=== PATIENT | female | born 1950 | race Hispanic/Latino ===

== ENCOUNTER 2018-08-25 01:33 | Emergency (ER) | payer MEDICARE ==
[~2018-08-25] VITALS: Ht 152.4 cm; Wt 92.5 kg
--- OUTSIDE RECORDS SUMMARY | 2018-08-25 01:35 | XMS REPORT ---
[facility] Address Unknown Phone Unavailable Care Team Providers Care Tip Mender Name Role Phone Unavailable Unavailable Payers Payer Name Policy Type Policy Number Effective Date Expiration Date Problems This patient has no known problems. Allergies, Adverse Reactions, Alerts Allergy Name Allergy Type Status Severity Reaction(s) Onset Date Inactive Date Treating Clinician Comments No Known Allergies DA Active U 2018-04-16 00:00:00 No Known Allergies DA Active U 2012-11-26 00:00:00 Medications This patient has no known medications.
[2018-08-25] MEDS ORDERED: LORATADINE 10 MG TAB PO ONE (02:15)
--- NOTE | 2018-08-25 02:48 | Diagnostic Imaging Report ---
EXAMINATION: Head and maxillofacial CT without contrast. HISTORY: Dizziness. Headache, facial pain for last 2 days, facial pressure. COMPARISON: None. TECHNIQUE: Multidetector axial images were obtained without contrast from the foramen magnum to the vertex and over the face. The images were reconstructed using brain and bone algorithms. Thin section brain images were reformatted into coronal and sagittal planes. Intravenous contrast: None. Dose modulation, iterative reconstruction, and/or weight based adjustment of the mA/kV was utilized to reduce the radiation dose to as low as reasonably achievable. Head CT findings: Skull: No lytic or blastic lesions. No fractures. Parenchyma: Normal. No mass, hemorrhage or CT evidence of acute vascular insult. Brain volume: Normal for age. Ventricles: No hydrocephalus or displacement. Arteries: No density suggestive of thrombus. Dural sinuses: No abnormal density. Extra-axial spaces: No abnormal density. Foramen magnum: No mass, Chiari malformation, or basilar invagination. Sella: Partially empty, mostly CSF filled Paranasal/mastoid sinuses: Imaged portions unremarkable. Face CT findings: Bones: No acute facial fractures, chronic nondisplaced fracture of the left nasal bone and frontal process of the maxilla. Degenerative changes of the bilateral TMJs. Facial soft tissues: Unremarkable. Orbits contents: Unremarkable. Paranasal sinuses and drainage pathways: Clear and patent. Nasal septum and nasal cavities: Midline. Anatomic variations: No significant anatomic variations. Teeth: No acute abnormality of the visualized teeth. IMPRESSION: 1. Normal head CT. 2. The paranasal sinuses and drainage pathways are clear. 3. Degenerative changes of the bilateral TMJs. Signed by: Dr. Shanelle Lawosn M.D. on 08/25/2018 2:44 AM
[2018-08-25 05:51] VITALS: BP 151/68
[2018-08-25] MEDS ORDERED: ACETAMINOPHEN 325 MG TAB ONE (06:04)
== END 2018-08-25 06:03 | disposition home or self-care (01) ==
LOC: ER 01:33
DX: R05 Cough (principal); J01.10 Acute frontal sinusitis, unspecified
CPT/HCPCS: 70450; 70486; 99284

== ENCOUNTER 2018-12-20 14:31 | Emergency (ER) | payer MEDICARE ==
[~2018-12-20] VITALS: Ht 152.4 cm; Wt 92.5 kg
[2018-12-20] MEDS ORDERED: SODIUM CHLORIDE 0.9% 1000ML 1,000 ML IV STA (14:46)
[2018-12-20] MEDS ORDERED: KETOROLAC TROMETHAMINE 30 MG/ML VIAL IV STA (14:46)
[2018-12-20 14:57] LABS: BASOPHILS # (AUTO) 0.1 (0.0-0.1); BASOPHILS % 0.5 % (0.0-1.0); EOSINOPHILS # (AUTO) 0.3 (0.0-0.4); EOSINOPHILS % 2.4 % (0.0-6.0); HEMATOCRIT 31.3 % (34.2-44.1); HEMOGLOBIN 9.9 g/dL (12.0-16.0); LYMPHOCYTES # (AUTO) 2.8 (1.0-3.2); LYMPHOCYTES % 25.4 % (18.0-39.1); MEAN CORPUSCULAR HEMOGLOBIN 29.5 pg (28-32); MEAN CORPUSCULAR HGB CONC 31.6 g/dL (31-35); MEAN CORPUSCULAR VOLUME 93.2 fL (81-99); MONOCYTES # (AUTO) 0.6 (0.2-0.8); MONOCYTES % 5.1 % (4.4-11.3); NEUTROPHILS # (AUTO) 7.3 (2.1-6.9); NEUTROPHILS % 66.2 % (38.7-80.0); PLATELET COUNT 204 x10e3/uL (140-360); RED BLOOD COUNT 3.36 x10e6/uL (3.6-5.1); RED CELL DISTRIBUTION WIDTH 15.1 % (11.7-14.4)
[2018-12-20 14:59] LABS: BILIRUBIN,URINE NEGATIVE (NEGATIVE); CLARITY,URINE CLEAR (CLEAR); COLOR,URINE YELLOW (YELLOW); KETONES,URINE NEGATIVE (NEGATIVE); LEUKOCYTE ESTERASE ,URINE TRACE (NEGATIVE); NITRITE,URINE NEGATIVE (NEGATIVE); PROTEIN,URINE DIPSTICK TRACE (NEGATIVE); URINE UROBILINOGEN 0.2 mg/dL (0.2 - 1)
[2018-12-20] MEDS ORDERED: METOCLOPRAMIDE HCL 10 MG/2ML VIAL IV ONE (15:00)
[2018-12-20] MEDS ORDERED: DIPHENHYDRAMINE HCL INJ 50 MG/ML VIAL IV ONE (15:00)
[2018-12-20 15:12] LABS: BACTERIA,URINE MODERATE /HPF; EPITHELIAL CELLS,URINE FEW /LPF; WBC,URINE (MAN) 0-5 /HPF (0-5)
[2018-12-20 15:17] LABS: ANION GAP 14.8 mmol/L (8-16); BLOOD UREA NITROGEN 15 mg/dL (7-26); BUN/CREATININE RATIO 17 (6-25); CARBON DIOXIDE 24 mmol/L (22-29); CHLORIDE 104 mmol/L (98-107); CREATININE, SERUM 0.88 mg/dL (0.57-1.11); EST GLOMERULAR FILTRATION RATE > 60 ML/MIN (60-); GLUCOSE 129 mg/dL (74-118); POTASSIUM 3.8 mmol/L (3.5-5.1); SODIUM 139 mmol/L (136-145)
[2018-12-20 15:18] LABS: ALANINE AMINOTRANSFERASE 14 IU/L (0-55); ALBUMIN 3.4 g/dL (3.5-5.0); ALBUMIN/GLOBULIN RATIO 0.9 (0.8-2.0); ALKALINE PHOSPHATASE 143 IU/L (40-150); CALCIUM 9.4 mg/dL (8.4-10.2)
--- NOTE | 2018-12-20 15:54 | Diagnostic Imaging Report ---
History:Headaches Comparison studies:CT head 08/25/2018 Technique: Axial images were obtained from the skull base to the vertex. Coronal and sagittal reconstructions obtained from the axial data. Dose modulation, iterative reconstruction, and/or weight based adjustment of the mA/kV was utilized to reduce the radiation dose to as low as reasonably achievable. Findings: Scalp/skull: No abnormalities. No fractures, blastic or lytic lesions. Extra-axial spaces: No masses. No fluid collections. Brain sulci: Appropriate for age. Ventricles: Normal in size and configuration. No hydrocephalus. Parenchyma: No abnormal densities. No masses, hemorrhage, acute or chronic cortical vascular insults. Sellar/suprasellar region: No abnormalities Craniocervical junction: Patent foramen magnum. No Chiari one malformation. Mild atherosclerotic changes of the carotid siphons. IMPRESSION: No acute abnormalities . Stable examination. Signed by: DR Shane Wilson M.D. on 12/20/2018 3:51 PM
== END 2018-12-20 16:40 | disposition home or self-care (01) ==
LOC: ER 14:31
DX: G44.211 Episodic tension-type headache, intractable (principal)
CPT/HCPCS: 36415; 70450; 80053; 81001; 85025; 99284; J1200; J1885; J2765; J7030

== ENCOUNTER 2019-11-30 15:14 | Inpatient (IN) | payer MEDICARE, OTHER ==
[~2019-11-30] VITALS: Ht 152.4 cm; Wt 79.4 kg
[2019-11-30] MEDS ORDERED: PANTOPRAZOLE 40 MG 10ML VIAL IV STA (15:32)
[2019-11-30 16:06] LABS: INR 0.89; PROTHROMBIN TIME 12.5 seconds (11.9-14.5)
[2019-11-30 16:07] LABS: BASOPHILS % 0.4 % (0.0-1.0); EOSINOPHILS # (AUTO) 0.1 (0.0-0.4); EOSINOPHILS % 1.2 % (0.0-6.0); HEMATOCRIT 25.6 % (34.2-44.1); HEMOGLOBIN 7.9 g/dL (12.0-16.0); LYMPHOCYTES # (AUTO) 2.5 (1.0-3.2); LYMPHOCYTES % 50.2 % (18.0-39.1); MEAN CORPUSCULAR HEMOGLOBIN 29.7 pg (28-32); MEAN CORPUSCULAR HGB CONC 30.9 g/dL (31-35); MEAN CORPUSCULAR VOLUME 96.2 fL (81-99); MONOCYTES # (AUTO) 0.2 (0.2-0.8); MONOCYTES % 4.3 % (4.4-11.3); NEUTROPHILS # (AUTO) 2.1 (2.1-6.9); NEUTROPHILS % 43.3 % (38.7-80.0); PARTIAL THROMBOPLASTIN TIME 30.6 seconds (23.8-35.5); PLATELET COUNT 180 x10e3/uL (140-360); RED BLOOD COUNT 2.66 x10e6/uL (3.6-5.1); RED CELL DISTRIBUTION WIDTH 15.4 % (11.7-14.4)
--- NOTE | 2019-11-30 16:07 | Diagnostic Imaging Report ---
EXAM: CHEST SINGLE (PORTABLE) DATE: 11/30/2019 3:45 PM INDICATION: Shortness of breath, anemia COMPARISON: None FINDINGS: The trachea is midline. The lungs are symmetrically expanded without evidence for large focal consolidation, pneumothorax, or significant pleural effusion. The cardiomediastinal silhouette and pulmonary vasculature are within normal limits. Tortuosity and vascular calcifications noted of the thoracic aorta. No acute osseous abnormality is identified. The surrounding soft tissues are unremarkable. IMPRESSION: No acute cardiopulmonary process identified. Signed by: Dr. Boo Ferrer MD on 11/30/2019 4:03 PM
[2019-11-30 16:13] LABS: ALBUMIN 3.3 g/dL (3.5-5.0); ALBUMIN/GLOBULIN RATIO 0.8 (0.8-2.0); ANION GAP 15.5 mmol/L (8-16); CALCIUM 8.9 mg/dL (8.4-10.2); CREATININE, SERUM 2.16 mg/dL (0.57-1.11); POTASSIUM 4.5 mmol/L (3.5-5.1)
[2019-11-30 16:20] LABS: CREATINE KINASE MB 0.6 ng/mL (0-5.0)
[2019-11-30] MEDS ORDERED: SODIUM CHLORIDE 0.9% 1000ML 1,000 ML IV SCH (17:00)
[2019-11-30] MEDS ORDERED: ONDANSETRON HCL INJ 2MG/ML 2ML 2 MG/ML VIAL IV PRN (17:00)
--- NOTE | 2019-11-30 17:02 | Emergency Department Note ---
History of Present Illnes History of Present Illness Chief Complaint: General Medicine Complaints History of Present Illness This is a 69 year old female Pt arrived to the ER with c/o low blood count. Pt states was sent by her PCP to have a blood transfusion. Pt reports SOB and fatigue. States had blood drawn Thursday d/t going to have a colonoscopy on Thursday. Unknown how low H&H. Historian: Patient Arrival Mode: Car Network Operations Manager Required: No Onset (how long ago): week(s) Radiation: Reports non-radiation Severity: moderate Onset quality: gradual Timing of current episode: intermittent Chronicity: new Context: Denies recent illness Relieving factors: none Exacerbating factors: movement Associated symptoms: Reports shortness of breath, Reports other (DIZZINESS) Past Medical/Family History Physician Review I have reviewed the patient's past medical and family history. Any updates have been documented here. Past Medical History Recent Fever: No Clinical Suspicion of Infectio: No New/Unexplained Change in Ment: No Past Medical History: Hypertension, Diabetes, Cancer, Anemia, Anxiety, Depress ion, Hyperlipedemia Other Medical History: ARTHRITIS BREAST CANCER Past Surgical History: Cholecysctectomy, Appendectomy, Hysterectomy, Hernia Repair Other Surgery: POLYPS REMOVAL HEMMAROIDECTOMY Social History Smoking Cessation: Never Smoker Counseling Performed: No Alcohol Use: None Any Illegal Drug Use: No Physically hurt or threatened: No Other Last Tetanus: OOD Any Pre-Existing Lines (PICC,: No Review of Systems Review of Systems Constitutional: Reports no symptoms EENTM: Reports no symptoms Cardiovascular: Reports no symptoms Respiratory: Reports dyspnea on exertion Gastrointestinal: Reports no symptoms Genitourinary: Reports no symptoms Musculoskeletal: Reports no symptoms Integumentary: Reports no symptoms Neurological: Reports no symptoms, Reports other (DIZZINESS) Psychological: Reports no symptoms Endocrine: Reports no symptoms Hematological/Lymphatic: Reports no symptoms Physical Exam Related Data Allergies: Coded Allergies: No Known Allergies (Unverified , 08/25/18) Triage Vital Signs Vital Signs Date Time Temp Pulse Resp B/P (MAP) Pulse Ox O2 Delivery O2 Flow Rate FiO2 11/30/19 15:18 99.1 73 16 130/59 100 Room Air Vital signs reviewed: Yes Physical Exam CONSTITUTIONAL Constitutional: Present well-developed, Present well-nourished HENT HENT: Present normocephalic, Present atraumatic, Present oropharynx cl ear/moist, Present nose normal HENT L/R: Present left ext ear normal, Present right ext ear normal EYES Eyes: Reports PERRL, Reports conjunctivae normal NECK Neck: Present ROM normal PULMONARY Pulmonary: Present effort normal, Present breath sounds normal CARDIOVASCULAR Cardiovascular: Present regular rhythm, Present heart sounds normal, Present capillary refill normal, Present normal rate GASTROINTESTINAL Abdominal: Present soft, Present nontender, Present bowel sounds normal GENITOURINARY Genitourinary: Present exam deferred SKIN Skin: Present warm, Present dry MUSCULOSKELETAL Musculoskeletal: Present ROM normal NEUROLOGICAL Neurological: Present alert, Present oriented x 3, Present no gross motor or sensory deficits PSYCHOLOGICAL Psychological: Present mood/affect normal, Present judgement normal Results Laboratory Result Diagram: 11/30/19 1529 11/30/19 1529 Laboratory Laboratory Tests Test 11/30/19 15:29 White Blood Count 4.90 x10e3/uL (4.8-10.8) Red Blood Count 2.66 x10e6/uL (3.6-5.1) Hemoglobin 7.9 g/dL (12.0-16.0) Hematocrit 25.6 % (34.2-44.1) Mean Corpuscular Volume 96.2 fL (81-99) Mean Corpuscular Hemoglobin 29.7 pg (28-32) Mean Corpuscular Hemoglobin Concent 30.9 g/dL (31-35) Red Cell Distribution Width 15.4 % (11.7-14.4) Platelet Count 180 x10e3/uL (140-360) Neutrophils (%) (Auto) 43.3 % (38.7-80.0) Lymphocytes (%) (Auto) 50.2 % (18.0-39.1) Monocytes (%) (Auto) 4.3 % (4.4-11.3) Eosinophils (%) (Auto) 1.2 % (0.0-6.0) Basophils (%) (Auto) 0.4 % (0.0-1.0) Neutrophils # (Auto) 2.1 (2.1-6.9) Lymphocytes # (Auto) 2.5 (1.0-3.2) Monocytes # (Auto) 0.2 (0.2-0.8) Eosinophils # (Auto) 0.1 (0.0-0.4) Basophils # (Auto) 0.0 (0.0-0.1) Absolute Immature Granulocyte (auto 0.03 x10e3/uL (0-0.1) Prothrombin Time 12.5 seconds (11.9-14.5) Prothromb Time International Ratio 0.89 Activated Partial Thromboplast Time 30.6 seconds (23.8-35.5) Sodium Level 136 mmol/L (136-145) Potassium Level 4.5 mmol/L (3.5-5.1) Chloride Level 106 mmol/L (98-107) Carbon Dioxide Level 19 mmol/L (22-29) Anion Gap 15.5 mmol/L (8-16) Blood Urea Nitrogen 31 mg/dL (7-26) Creatinine 2.16 mg/dL (0.57-1.11) Estimat Glomerular Filtration Rate 23 ML/MIN (60-) BUN/Creatinine Ratio 14 (6-25) Glucose Level 88 mg/dL (74-118) Calcium Level 8.9 mg/dL (8.4-10.2) Total Bilirubin 0.4 mg/dL (0.2-1.2) Aspartate Amino Transf (AST/SGOT) 30 IU/L (5-34) Alanine Aminotransferase (ALT/SGPT) 18 IU/L (0-55) Alkaline Phosphatase 102 IU/L (40-150) Creatine Kinase 32 IU/L (29-168) Creatine Kinase MB 0.60 ng/mL (0-5.0) Troponin I 0.005 ng/mL (0-0.300) B-Type Natriuretic Peptide < 10.0 pg/mL (0-100) Total Protein 7.4 g/dL (6.5-8.1) Albumin 3.3 g/dL (3.5-5.0) Globulin 4.1 g/dL (2.3-3.5) Albumin/Globulin Ratio 0.8 (0.8-2.0) Lab results reviewed: Yes Imaging Imaging results reviewed: Yes Assessment & Plan Medical Decision Making MDM weak/fatigue/MORALES - check cbc, chem, bnp, ecg, cardiacs - r/o anemia, renal insuff, stemi/nstemi, chf Reassessment Reassessment d/w dr good for admission, dr eliza arizmendi for consult Assessment & Plan Final Impression: (1) Anemia (2) Dyspnea on exertion Depart Disposition: ADMITTED Last Vital Signs Date Time Temp Pulse Resp B/P (MAP) Pulse Ox O2 Delivery O2 Flow Rate FiO2 11/30/19 16:31 79 18 134/64 98 Room Air 11/30/19 15:18 99.1 Medications in the ED Pantoprazole Sodium 40 mg ONCE STAT IV Last administered on 11/30/19at 16:47; Admin Dose 40 MG; Start 11/30/19 at 15:32; Stop 11/30/19 at 15:37; Status DC Ondansetron HCl 4 mg Q4H PRN IV NAUSEA AND VOMITING; Start 11/30/19 at 17:00; Stop 12/30/19 at 16:59; Status UNV Sodium Chloride 1,000 ml @ 75 mls/hr [id number] IV ; Start 11/30/19 at 17:00; Stop 12/01/19 at 06:19; Status UNV Pantoprazole Sodium 40 mg Q12HR IV ; Start 11/30/19 at 21:00; Stop 12/30/19 at 20:59; Status UNV ALEXEY BUTT MD Nov 30, 2019 17:02
[2019-11-30 18:00] VITALS: BP 162/47
--- NOTE | 2019-11-30 18:26 | NUR ---
ARRIVED TO UNIT AT APPROXIMATELY 1733. AAOX3. ACYANOTIC. NO DISTRESS NOTED. CALL LIGHT REACH. SIDE RAILS UP X2. BED LOW AND LOCKED. INSTRUCTED TO USE CALL LIGHT FOR ASSISTANCE. VERBALIZED UNDERSTANDING.
[2019-11-30 20:00] VITALS: BP 130/59
[2019-11-30] MEDS ORDERED: CRESTOR10 MG PO (20:23)
[2019-11-30] MEDS ORDERED: FERROUS SULFAT325 MG PO (20:23)
[2019-11-30] MEDS ORDERED: BUPROPION XL150 MG PO (20:23)
[2019-11-30] MEDS ORDERED: MAGNESIUM OXID400 MG PO (20:23)
[2019-11-30] MEDS ORDERED: METOPROLOL TART25 MG PO (20:23)
[2019-11-30] MEDS ORDERED: ZOFRAN4 MG PO (20:23)
[2019-11-30] MEDS ORDERED: PANTOPRAZOLE SO40 MG PO (20:23)
[2019-11-30] MEDS ORDERED: SUCRALFATE1 GM PO (20:23)
[2019-11-30] MEDS ORDERED: METFORMIN HCL500 MG PO (20:23)
[2019-11-30] MEDS ORDERED: ALBUTEROL SULFATE INH (20:23)
[2019-11-30] MEDS ORDERED: LISINOPRIL10 MG PO (20:23)
[2019-11-30 21:20] VITALS: BP 130/59
--- NOTE | 2019-11-30 21:20 | NUR ---
PATIENT IS RESTING IN BED IN STABLE CONDITION, NO SIGNS OF DISTRESS NOTED. IV FLUIDS ARE RUNNING AT ORDERED RATE AND PATIENT VOICES NO PAIN AT THIS TIME. BED IS IN LOWEST POSITION, BOTH SIDE RAIL ARE UP, CALL LIGHT IS WITHIN EASY REACH, WILL CONTINUE TO MONITOR.
[2019-12-01] VITALS (7 sets, daily range): BP systolic 114–136; BP diastolic 49–69
[2019-12-01 04:43] LABS: BASOPHILS % 0.2 % (0.0-1.0); EOSINOPHILS # (AUTO) 0.1 (0.0-0.4); EOSINOPHILS % 1.5 % (0.0-6.0); HEMATOCRIT 23.5 % (34.2-44.1); HEMOGLOBIN 7.3 g/dL (12.0-16.0); LYMPHOCYTES # (AUTO) 2.2 (1.0-3.2); LYMPHOCYTES % 47.8 % (18.0-39.1); MEAN CORPUSCULAR HEMOGLOBIN 30.3 pg (28-32); MEAN CORPUSCULAR HGB CONC 31.1 g/dL (31-35); MEAN CORPUSCULAR VOLUME 97.5 fL (81-99); MONOCYTES # (AUTO) 0.2 (0.2-0.8); MONOCYTES % 4.4 % (4.4-11.3); NEUTROPHILS % 45.2 % (38.7-80.0); PLATELET COUNT 140 x10e3/uL (140-360); RED BLOOD COUNT 2.41 x10e6/uL (3.6-5.1); RED CELL DISTRIBUTION WIDTH 15.2 % (11.7-14.4)
[2019-12-01 05:00] LABS: ALBUMIN 2.9 g/dL (3.5-5.0); ALBUMIN/GLOBULIN RATIO 0.8 (0.8-2.0); ANION GAP 13.6 mmol/L (8-16); CALCIUM 8.2 mg/dL (8.4-10.2); CREATININE, SERUM 1.67 mg/dL (0.57-1.11); POTASSIUM 4.6 mmol/L (3.5-5.1)
[2019-12-01 05:27] LABS: CREATINE KINASE MB 0.5 ng/mL (0-5.0)
[2019-12-01 05:55] LABS: % IRON SATURATION 30 % (15-50); IRON 87 ug/dL (50-170); TOTAL IRON BINDING CAPACITY 291 ug/dL (261-478); TRANSFERRIN 208 mg/dL (180-382)
[2019-12-01 06:21] LABS: FERRITIN > 2000.00 ng/mL (4.63-204.00)
[2019-12-01] MEDS ORDERED: ZOLPIDEM TARTRATE 5 MG TAB PO PRN (06:45)
[2019-12-01] MEDS ORDERED: SUCRALFATE 1 GM TAB PO PRN (06:45)
[2019-12-01] MEDS ORDERED: ONDANSETRON HCL INJ 2MG/ML 2ML 2 MG/ML VIAL IV PRN (06:45)
[2019-12-01] MEDS ORDERED: DOCUSATE SODIUM 100 MG CAP PO PRN (06:45)
[2019-12-01] MEDS ORDERED: ACETAMINOPHEN 325 MG TAB PO PRN (06:45)
[2019-12-01] MEDS ORDERED: SODIUM CHLORIDE 0.45% 1,000 ML IV ONE ×2 (07:00→09:00)
[2019-12-01] MEDS ORDERED: DEXTROSE 50% SYRINGE 50 ML IV PRN (07:00)
--- NOTE | 2019-12-01 07:24 | NUR ---
ASSUMED CARE. AAOX3. RESTING IN BED. ACYANOTIC. NO DISTRESS NOTED. CALL LIGHT IN REACH. SIDE RAILS UP X2. BED LOW AND LOCKED.
[2019-12-01] MEDS: INSULIN REGULAR, HUMAN 100 UNIT/1 ML 3ML VIAL SQ SCH ×4 (07:30→21:00)
[2019-12-01] MEDS: METOPROLOL TARTRATE 25 MG TAB PO SCH (08:12)
[2019-12-01] MEDS: MAGNESIUM OXIDE 400 MG TAB PO SCH (08:22)
[2019-12-01] MEDS: BUPROPION HCL 150 MG TABCR PO SCH (08:22)
[2019-12-01] MEDS: SODIUM BICARBONATE 650 MG TAB PO SCH ×2 (08:22→16:13)
[2019-12-01] MEDS: PANTOPRAZOLE SOD 40 MG TABEC PO SCH (08:22)
[2019-12-01] MEDS: FERROUS SULFATE 325 MG TAB PO SCH ×2 (08:22→16:13)
[2019-12-01] MEDS ORDERED: MAGNESIUM OXIDE 400 MG TAB PO SCH (09:00)
[2019-12-01] MEDS ORDERED: SIMVASTATIN 40 MG TAB PO SCH (09:00)
[2019-12-01] MEDS ORDERED: PANTOPRAZOLE 40 MG 10ML VIAL IV SCH (09:00)
[2019-12-01] MEDS ORDERED: IRON SUCROSE 100 MG in SODIUM CHLORIDE 0.9% 100 ML 100 ML IV ONE (09:00)
[2019-12-01] MEDS ORDERED: BISACODYL 5 MG TAB EC PO ONE (09:30)
--- NOTE | 2019-12-01 12:58 | Consultation ---
DATE OF CONSULTATION: Cardiology Consultation REASON FOR CONSULTATION: Shortness of breath. HISTORY OF PRESENT ILLNESS: This is a 69-year-old woman with history of hypertension, diabetes mellitus, anemia, anxiety, depression, and hyperlipidemia, who presented to the emergency department with shortness of breath and fatigue. She was sent by her primary care provider due to symptomatic anemia. She reports shortness of breath, occurs at rest, worse with exertion, [id number] in intensity. No other exacerbating or relieving factors. REVIEW OF SYSTEMS: A 12-point review of system was conducted, is negative except as stated above in the HPI. PAST MEDICAL HISTORY: As stated above in the HPI. PAST SURGICAL HISTORY: None recent. PAST FAMILY HISTORY: Noncontributory to current illness. SOCIAL HISTORY: No illicit drug, alcohol, or tobacco use. ALLERGIES: NO KNOWN DRUG ALLERGIES. MEDICATIONS: See medication reconciliation form. PHYSICAL EXAMINATION: VITAL SIGNS: Temperature is 99.1, heart rate 69, respirations are 18, blood pressure is 120/49, and oxygen saturation 98% on room air. GENERAL: Well appearing, well built, in no apparent distress. Alert and oriented x3. HEAD: Normocephalic and atraumatic. EYES: The extraocular muscles intact. Conjunctivae clear. NECK: No JVD. No bruits. CARDIOVASCULAR: Regular rate and rhythm. LUNGS: Clear to auscultation. ABDOMEN: Soft, nontender, and nondistended. EXTREMITIES: No clubbing, cyanosis, or edema. VASCULAR: 2+ pulses. SKIN: Warm, dry, and intact. NEUROLOGIC: No focal deficits noted. LABORATORY DATA: Reviewed. Hemoglobin 7.3. Troponins negative x2. BNP is less than 10. Chest x-ray shows no acute cardiopulmonary abnormality. IMPRESSION: 1. Symptomatic anemia. 2. Hypertension. 3. Hyperlipidemia. 4. Obesity. 5. Kalld-ol-otqvhcu kidney disease. 6. Shortness of breath. RECOMMENDATIONS: The patient does not appear to have any cardiac cause for her shortness of breath. Her BNP is within normal limits, she ruled out for acute myocardial infarction, and her chest x-ray is within normal limits. May consider getting an echocardiogram. Continue anemia treatment and workup per primary team. Alton Cano DO BM/MODL /[id number]
--- NOTE | 2019-12-01 13:49 | NUR ---
H&P cc: sob and dizziness HPI: 69yoF, PCP [facility], developed sob, dizziness, melena; Last colonoscopy 2 weeks ago at [place], hospital, pt notes negative. No cp/ very sob with walking. PMH: DM2, HTN, breast cancer s/p chemo, no surgeyr, SPhx: hysterecotmy, cholecysteectomy, colon related, hemorrhoidectomy Allergies; see emr Fh/SH; ; no cigs Meds; see MAR ROS; no f/c/s/N/V/D/DARDEN/cp/skin rash/confusion/focal limb weakness v/s; revd PE tired appearing anicteric ns1s2 mod bs; soft nt nd no e/t skin dry flat affect a*ox3; rene meds/labs revd A/P: BARBARA- ivf Moderate anemia- check anemia panel; Metabolic acidosis- bicarbs DM2- hab1c/lipids MORALES- check echo and consult cards; check COVID19 Prop; scd dispo: Pt consult; get echo. Neftali Grullon MD, PhD.
[2019-12-01] MEDS ORDERED: BISACODYL 5 MG TAB EC PO NR ×3 (15:45→20:00)
--- NOTE | 2019-12-01 20:00 | NUR ---
PATIENT IS RESTING IN BED IN STABLE CONDITION, NO SIGNS OF DISTRESS NOTED. IV FLUIDS ARE RUNNING AT ORDERED RATE AND PATIENT VOICES NO PAIN AT THIS TIME. PATIENT IS CURRENTLY CLEARING STOMACH FOR POSSIBLE PROCEDURE TOMORROW AND TAKING MEDICATION. BED IS IN LOWEST POSITION, BOTH SIDE RAIL ARE UP, CALL LIGHT IS WITHIN EASY REACH, WILL CONTINUE TO MONITOR.
[2019-12-01] MEDS: SIMVASTATIN 20 MG TAB PO SCH (20:05)
[2019-12-01] MEDS ORDERED: ONDANSETRON HCL 4 MG ORAL DISINTEGRATING TAB PO PRN (21:00)
[2019-12-01] MEDS ORDERED: CITRATE OF MAGNESIA 300ML BOTTLE PO NR (22:00)
[2019-12-02] VITALS (9 sets, daily range): BP systolic 121–139; BP diastolic 55–74
[2019-12-02] MEDS ORDERED: MECLIZINE HCL 12.5 MG TAB PO ONE ×3 (00:30→16:00)
[2019-12-02] MEDS ORDERED: MECLIZINE HCL 12.5 MG TAB PO PRN (00:45)
--- NOTE | 2019-12-02 06:12 | NUR ---
RECEIVED PATIENT FROM ROOM 102 VIA WHEELCHAIR. ALERT AND ORIENTED.
--- NOTE | 2019-12-02 06:36 | NUR ---
IM- Progress notes O/N see below ROS; no f/c/s/N/V/D/DARDEN/cp/skin rash/confusion/focal limb weakness v/s; revd PE tired appearing anicteric ns1s2 mod bs; soft nt nd no e/t skin dry flat affect a*ox3; rene meds/labs revd A/P: BARBARA- ivf Moderate anemia- check anemia panel; Metabolic acidosis- bicarbs DM2- hab1c/lipids MORALES- check echo and consult cards; check COVID19 Prop; scd dispo: Pt consult; get echo. 12-01 Hba1c/LDL 6.3/36; Low B12 - start supplement; Continue IVF and bicarbs; check renal U/S. check H/H and renal fn. Neftali Grullon MD, PhD.
[2019-12-02] MEDS ORDERED: SODIUM CHLORIDE 0.45% 1,000 ML IV ONE (06:45)
[2019-12-02] MEDS: INSULIN REGULAR, HUMAN 100 UNIT/1 ML 3ML VIAL SQ SCH ×4 (07:30→20:42)
[2019-12-02] MEDS: CYANOCOBALAMIN INJ 1,000 MCG/ML VIAL IM SCH (08:27)
[2019-12-02] MEDS: FERROUS SULFATE 325 MG TAB PO SCH ×2 (08:28→16:39)
[2019-12-02] MEDS: METOPROLOL TARTRATE 25 MG TAB PO SCH (08:28)
[2019-12-02] MEDS: MAGNESIUM OXIDE 400 MG TAB PO SCH (08:28)
[2019-12-02] MEDS: PANTOPRAZOLE SOD 40 MG TABEC PO SCH (08:29)
[2019-12-02] MEDS: SODIUM BICARBONATE 650 MG TAB PO SCH ×2 (08:29→16:39)
[2019-12-02] MEDS: BUPROPION HCL 150 MG TABCR PO SCH (08:29)
[2019-12-02 09:20] LABS: BASOPHILS % 0.4 % (0.0-1.0); EOSINOPHILS # (AUTO) 0.1 (0.0-0.4); EOSINOPHILS % 1.6 % (0.0-6.0); HEMOGLOBIN 7.8 g/dL (12.0-16.0); LYMPHOCYTES # (AUTO) 1.8 (1.0-3.2); LYMPHOCYTES % 30.9 % (18.0-39.1); MEAN CORPUSCULAR HEMOGLOBIN 29.8 pg (28-32); MEAN CORPUSCULAR HGB CONC 31.2 g/dL (31-35); MEAN CORPUSCULAR VOLUME 95.4 fL (81-99); MONOCYTES # (AUTO) 0.2 (0.2-0.8); MONOCYTES % 3.7 % (4.4-11.3); NEUTROPHILS # (AUTO) 3.5 (2.1-6.9); PLATELET COUNT 148 x10e3/uL (140-360); RED BLOOD COUNT 2.62 x10e6/uL (3.6-5.1); RED CELL DISTRIBUTION WIDTH 15.4 % (11.7-14.4)
[2019-12-02 09:38] LABS: ANION GAP 15.1 mmol/L (8-16); CALCIUM 8.8 mg/dL (8.4-10.2); CREATININE, SERUM 1.38 mg/dL (0.57-1.11); POTASSIUM 4.1 mmol/L (3.5-5.1)
--- NOTE | 2019-12-02 15:55 | Diagnostic Imaging Report ---
EXAM: Renal Ultrasound INDICATION: ^pamela vs ckd ^[id number] ^[id number] COMPARISON: None TECHNIQUE: Transverse and longitudinal images of the kidneys and bladder were obtained. FINDINGS: Right Kidney: Length: 10.4 cm Appearance: Normal echogenicity. Collecting system: Mild hydronephrosis Stones: None Cyst/Mass: None Left Kidney: Length: 10.8 cm Appearance: Normal echogenicity. Collecting system: No hydronephrosis Stones: None Cyst/Mass: None Bladder: No mass or calculi. Bilateral ureteral jets visualized. Prevoid volume estimate of 82 cc. IMPRESSION: Mild right hydronephrosis. Signed by: Pia Akers MD on 12/02/2019 3:52 PM
--- NOTE | 2019-12-02 17:35 | Progress Note ---
DATE: Cardiology Progress Note The patient's status and case discussed with nursing staff. Shortness of breath has improved. No other cardiovascular symptoms. OBJECTIVE: VITAL SIGNS: Temperature 98.2, heart rate 65, respirations 18, blood pressure is 133/61, oxygen 100% on room air. Physical examination per primary care. The patient was not examined due to COVID-19 isolation. LABORATORY DATA: Reviewed. Echocardiogram reviewed shows preserved left ventricular systolic function. IMPRESSION: 1. Shortness of breath. 2. Symptomatic anemia. 3. Hyperlipidemia. 4. Obesity. 5. Acute on chronic kidney disease. RECOMMENDATIONS: The patient's echocardiogram was within normal limits. Her shortness of breath is likely due to her anemia. Continue anemia workup per primary team. No further cardiovascular workup or testing is required at this point of time. DO WILLAM Burr/MODL /[id number]
--- OUTSIDE RECORDS SUMMARY | 2019-12-02 19:58 | XMS REPORT | Continuity of Care Document ---
Author Author [facility] t Organization [facility] Address [address] [place] [address] Phone Unavailable Care Team Providers Care Facilities Mechanical Design Engineer Name Role Phone Melissa DIMAS DO PCP Zeynep BUTT Attphys Unavailable MISAELDaisy Attphys Unavailable MANUEL, S AMBICA Attphys Unavailable Payers Payer Name Policy Type Policy Number Effective Date Expiration Date Tahira morales [facility] [id number] [facility] Medicare A & B [id number] [facility] Problems This patient has no known problems. Allergies, Adverse Reactions, Alerts Allergy Name Allergy Type Status Severity Reaction(s) Onset Date Inacti ve Date Treating Clinician Comments Source No Known Allergies DA Active U 2018-04-16 00:00:00 [facility] No Known Allergies DA Active U 2012-11-26 00:00:00 [facility] Medications This patient has no known medications. Procedures Procedure Date / Time Performed Performing Clinician Sourdewey e Computed tomography of brain without radiopaque contrast 201 01-09-19 00:00:00 FILEMON KUNZ [facility] Computed tomography of brain without radiopaque contrast 201 01-06-24 00:00:00 BYRON JACKSON [facility] CT maxillofacial area wo contrast 2018-08-25 00:00:00 FRED JACKSON [facility] Encounters Start Date/Time End Date/Time Encounter Type Admission Type Attendi [facility] Care Department Encounter ID Source 2018-12-20 14:31:00 2018-12-20 16:40:00 Departed Emergency Room 1 GIN DOUGLAS [facility] [id number] [facility] 2018-08-25 01:33:00 2018-08-25 06:03:00 Departed Emergency Room 1 BYRON JACKSON [facility] [id number] [facility] Results Test Description Test Time Test Comments Results Result Comments Source CHEST SINGLE (PORTABLE) 2019-11-30 16:03:00 [place] [address] Patient Name: MINA DIAZ MR #: [id number] : 1950 Age/Sex: 69/F Req #: [id number] Adm Physician: Ordered by: ALEXEY BUTT MD Report #: [id number] Location: ER Room/Bed: Procedure: [id number] DX/CHEST SINGLE (PORTABLE) Exam Date: 11/30/19 Exam Time: 1545 REPORT STATUS: Signed EXAM: CHEST SINGLE (PORTABLE) DATE: 11/30/2019 3:45 PM INDICATION: Shortness of breath, anemia COMPARISON: None FINDINGS: The trachea is midline. The lungs are symmetrically expanded without evidence for large focal consolidation, pneumo thorax, or significant pleural effusion. The cardiomediastinal silhouette and pulmonary vasculature are within normal limits. Tortuosity and vascular calcifications noted of the thoracic aorta. No acute osseous abnormality is identified. The surrounding soft tissues are unremarkable. IMPRESSION: No acute cardiopulmonary process identified. Signed by: Dr. Boo Ferrer MD on 11/30/2019 4:03 PM Dictated By: BOO FERRER MD 02 Transcribed By: MIR on 11/30/191602 COPY TO: ALEXEY BUTT MD CT BRAIN WO 2018-12-20 15:48:00 [place] [address] Patient Name: MINA DIAZ MR #: [id number] : 1950 Age/Sex: 68/F Req #: [id number] Adm Physician: Ordered by: FILEMON KUNZ NP Report #: [id number] Location: ER Room/Bed: Procedure: [id number] CT/CT BRAIN WO Exam Date: 12/20/18 Exam Time: 1530 REPORT STATUS: Signed History:Headaches Comparison studies:CT head 08/25/2018 Technique: Axial images were obtained from the skull base to the vertex. Coronal and sagittal reconstructions obtained from the axial data. Dose modulation, iterative reconstruction, and/or weight based adjustment of the mA/kV was utilized to reduce the radiation dose to as low as reasonably achievable. Findings: Scalp/skull: No abnormalities. No fractures, blastic or lytic lesions. Extra-axial spaces: No masses. No fluid collections. Brain sulci: Appropriate for age. Ventricles: Normal in size and configuration. No hydrocephalus. Parenchyma: No abno rmal densities. No masses, hemorrhage, acute or chronic cortical vascular insults. Sellar/suprasellar region: No abnormalities Craniocervical junction: Patent foramen magnum. No Chiari one malformation. Mild atherosclerotic changes of the carotid siphons. IMPRESSION: No acute abnormalities . Stable examination. Signed by: DR Shane Wilson M.D. on 12/20/2018 3:51 PM Dictated By: SHANE CARTER MD 50 Transcribed By: MIR on 12/20/181550 COPY TO: FILEMON KUNZ MAMIE Sodium Level 2018-12-20 15:19:00 Test Item Sodium Level (test code = 2951-2) 139 136-145 [facility] Mbqsw1373-40-80 15:19:00* Test Item Value Reference Range Interpretation Comments Potassium Level (test code = 2823-3) 3.8 3.5-5.1 [facility] NorthwestChloride [id number] 15:19:00* Test Item Value Reference Range Interpretation Comments Chloride Level (test code = 2075-0) 104 98-107 [facility] NorthwestCarbon Dioxide Urfod7721-86-32 15:19:00* Test Item Value Reference Range Interpretation Comments Carbon Dioxide Level (test code = 2028-9) 24 22-29 [facility] NorthwestAnion Gde4023-63-01 15:19:00* Test Item Value Reference Range Interpretation Comments Anion Gap (test code = 63133-9) 14.8 8-16 [facility] Northwest[facility] Urea Kyoaqjcp2695-89-30 15:19:00* Test Item Value Reference Range Interpretation Comments Blood Urea Nitrogen (test code = 3094-0) 15 7-26 [facility] NorthwestCreatinine2019-08-19 15:19:00* Test Item Value Reference Range Interpretation Comments Creatinine (test code = 2160-0) 0.88 0.57-1.11 [facility] NorthwestBUN/Creatinine Lkrus3128-72-39 15:19:00* Test Item Value Reference Range Interpretation Comments BUN/Creatinine Ratio (test code = 3097-3) 17 6-25 [facility] NorthwestEstimat Glomerular Filtration Rate 2018-12-20 15:19:00* Test Item Value Reference Range Interpretation Comments Estimat Glomerular Filtration Rate (test code = 316972956) > 60 >60 Ranges were taken from the National Kidney Disease Education Program and the [facility] Foundation literature.Reference ranges:60 or greater: Azlsyz01-86 ( for 3 consecutive months): Chronic kidney disease 15 or less: Kidney failureHCA [facility] Healthcare NorthwestGlucose Mlwjg9527-95-97 15:19:00* Test Item Value Reference Range Interpretation Comments Glucose Level (test code = FYW4877) 129 74-118 H [facility] NorthwestCalcium Lbmuk3861-19-29 15:19:00* Test Item Value Reference Range Interpretation Comments Calcium Level (test code = 73205-3) 9.4 8.4-10.2 [facility] NorthwestTotal Pyusrxxym3293-52-35 15:19:00* Test Item Value Reference Range Interpretation Comments Total Bilirubin (test code = 1975-2) 0.5 0.2-1.2 [facility] NorthwestAspartate Amino Transf (AST/SGOT) 2018-12-20 15:19:00* Test Item Value Reference Range Interpretation Comments Aspartate Amino Transf (AST/SGOT) (test code = Aspartate Amino Transf (AST/SGOT)) 14 5-34 [facility] NorthwestAlanine Aminotransferase (ALT/SGPT) 2018-12-20 15:19:00* Test Item Value Reference Range Interpretation Comments Alanine Aminotransferase (ALT/SGPT) (test code = 1742-6) 14 0-55 [facility] NorthwestTotal Cavmhom3535-37-74 15:19:00* Test Item Value Reference Range Interpretation Comments Total Protein (test code = 2885-2) 7.3 6.5-8.1 [facility] NorthwestAlbumin2019-08-19 15:19:00* Test Item Value Reference Range Interpretation Comments Albumin (test code = 1751-7) 3.4 3.5-5.0 L [facility] NorthwestGlobulin2019-08-19 15:19:00* Test Item Value Reference Range Interpretation Comments Globulin (test code = 86460-6) 3.9 2.3-3.5 H [facility] NorthwestAlbumin/Globulin Dvahi6861-23-55 15:19:00 * Test Item Value Reference Range Interpretation Comments Albumin/Globulin Ratio (test code = 1759-0) 0.9 0.8-2.0 [facility] NorthwestAlkaline Xxibnqrhjjt6200-08-45 15:19:00* Test Item Value Reference Range Interpretation Comments Alkaline Phosphatase (test code = 6768-6) 143 40-150 [facility] NorthwestUrine WVI2699-26-54 15:12:00* Test Item Value Reference Range Interpretation Comments Urine WBC (test code = 5821-4) 0-5 0-5 [facility] NorthwestUrine PGX6396-01-67 15:12:00* Test Item Value Reference Range Interpretation Comments Urine RBC (test code = 17062-6) NONE 0-5 [facility] NorthwestUrine Vhxacudc8838-66-31 15:12:00* Test Item Value Reference Range Interpretation Comments Urine Bacteria (test code = 91222-8) MODERATE NONE H [facility] NorthwestUrine Epithelial Ldblv2625-34-34 15:12:00 * Test Item Value Reference Range Interpretation Comments Urine Epithelial Cells (test code = 35896-7) FEW NONE [facility] NorthwestUrine Zmpuq2492-61-06 15:00:00* Test Item Value Reference Range Interpretation Comments Urine Color (test code = 5778-6) YELLOW YELLOW [facility] NorthwestUrine Hxdugjt5356-96-52 15:00:00* Test Item Value Reference Range Interpretation Comments Urine Clarity (test code = 66026-5) CLEAR CLEAR [facility] NorthwestUrine Specific Ewplqwf1926-33-48 15:00:00 * Test Item Value Reference Range Interpretation Comments Urine Specific Union (test code = 5811-5) 1.025 1.010-1.02 5 [facility] NorthwestUrine oK0527-13-69 15:00:00* Test Item Value Reference Range Interpretation Comments Urine pH (test code = 65867-0) 6 5-7 [facility] Northwest[facility] Leukocyte Qgeslmgo3009-48-14 15:00:00* Test Item Value Reference Range Interpretation Comments Urine Leukocyte Esterase (test code = 23811-7) TRACE NEGATIV E H [facility] NorthwestUrine Klimkxj5822-07-10 15:00:00* Test Item Value Reference Range Interpretation Comments Urine Nitrite (test code = 04449-6) NEGATIVE NEGATIVE [facility] NorthwestUrine Nlihotg9723-32-08 15:00:00* Test Item Value Reference Range Interpretation Comments Urine Protein (test code = 85188-0) TRACE NEGATIVE H [facility] NorthwestUrine Glucose (UA)2018-12-20 15:00:00* Test Item Value Reference Range Interpretation Comments Urine Glucose (UA) (test code = 12084-6) NEGATIVE NEGATIVE [facility] NorthwestUrine Lajuilk7460-12-99 15:00:00* Test Item Value Reference Range Interpretation Comments Urine Ketones (test code = 31294-1) NEGATIVE NEGATIVE [facility] NorthwestUrine Eqdadwggdydh2905-83-58 15:00:00* Test Item Value Reference Range Interpretation Comments Urine Urobilinogen (test code = 93878-5) 0.2 0.2-1 [facility] NorthwestUrine Euzxtwckv2475-79-30 15:00:00* Test Item Value Reference Range Interpretation Comments Urine Bilirubin (test code = 1977-8) NEGATIVE NEGATIVE [facility] NorthwestUrine Nizya6250-78-24 15:00:00* Test Item Value Reference Range Interpretation Comments Urine Blood (test code = 63658-2) NEGATIVE NEGATIVE [facility] NorthwestWhite Blood Fmgiz4709-32-51 14:59:00* Test Item Value Reference Range Interpretation Comments White Blood Count (test code = 6690-2) 11.06 4.8-10.8 H [facility] NorthwestRed Blood Anrnk1770-75-10 14:59:00* Test Item Value Reference Range Interpretation Comments Red Blood Count (test code = 789-8) 3.36 3.6-5.1 L [facility] NorthwestHemoglobin2019-08-19 14:59:00* Test Item Value Reference Range Interpretation Comments Hemoglobin (test code = 50593-4) 9.9 12.0-16.0 L [facility] NorthwestHematocrit2019-08-19 14:59:00* Test Item Value Reference Range Interpretation Comments Hematocrit (test code = 4544-3) 31.3 34.2-44.1 L [facility] NorthwestMean Corpuscular Bahlpb1357-58-20 14:59:00* Test Item Value Reference Range Interpretation Comments Mean Corpuscular Volume (test code = 787-2) 93.2 81-99 [facility] NorthwestMean Corpuscular Trpxmikvqk9559-11-61 14:59:00* Test Item Value Reference Range Interpretation Comments Mean Corpuscular Hemoglobin (test code = 785-6) 29.5 28-32 [facility] NorthwestMean Corpuscular Hemoglobin Concent 2018-12-20 14:59:00* Test Item Value Reference Range Interpretation Comments Mean Corpuscular Hemoglobin Concent (test code = 786-4) 31.6 31-35 [facility] NorthwestRed Cell Distribution Navuq8798-80-52 14:59:00* Test Item Value Reference Range Interpretation Comments Red Cell Distribution Width (test code = 30085-8) 15.1 11.7 -14.4 H [facility] NorthwestPlatelet Pixsq8084-31-62 14:59:00* Test Item Value Reference Range Interpretation Comments Platelet Count (test code = 777-3) 204 140-360 [facility] NorthwestNeutrophils (%) (Auto)2018-12-20 14:59:00 * Test Item Value Reference Range Interpretation Comments Neutrophils (%) (Auto) (test code = 96162-1) 66.2 38.7-80.0 [facility] NorthwestLymphocytes (%) (Auto)2018-12-20 14:59:00 * Test Item Value Reference Range Interpretation Comments Lymphocytes (%) (Auto) (test code = 736-9) 25.4 18.0-39.1 [facility] NorthwestMonocytes (%) (Auto)2018-12-20 14:59:00* Test Item Value Reference Range Interpretation Comments Monocytes (%) (Auto) (test code = 5905-5) 5.1 4.4-11.3 [facility] NorthwestEosinophils (%) (Auto)2018-12-20 14:59:00 * Test Item Value Reference Range Interpretation Comments Eosinophils (%) (Auto) (test code = 713-8) 2.4 0.0-6.0 [facility] NorthwestBasophils (%) (Auto)2018-12-20 14:59:00* Test Item Value Reference Range Interpretation Comments Basophils (%) (Auto) (test code = 706-2) 0.5 0.0-1.0 [facility] NorthwestIM GRANULOCYTES %2018-12-20 14:59:00* Test Item Value Reference Range Interpretation Comments IM GRANULOCYTES % (test code = IM GRANULOCYTES %) 0.4 0.0- 1.0 [facility] NorthwestNeutrophils # (Auto)2018-12-20 14:59:00* Test Item Value Reference Range Interpretation Comments Neutrophils # (Auto) (test code = 751-8) 7.3 2.1-6.9 H [facility] NorthwestLymphocytes # (Auto)2018-12-20 14:59:00* Test Item Value Reference Range Interpretation Comments Lymphocytes # (Auto) (test code = 52774-4) 2.8 1.0-3.2 [facility] NorthwestMonocytes # (Auto)2018-12-20 14:59:00* Test Item Value Reference Range Interpretation Comments Monocytes # (Auto) (test code = 742-7) 0.6 0.2-0.8 [facility] NorthwestEosinophils # (Auto)2018-12-20 14:59:00* Test Item Value Reference Range Interpretation Comments Eosinophils # (Auto) (test code = 711-2) 0.3 0.0-0.4 [facility] NorthwestBasophils # (Auto)2018-12-20 14:59:00* Test Item Value Reference Range Interpretation Comments Basophils # (Auto) (test code = 704-7) 0.1 0.0-0.1 [facility] NorthwestAbsolute Immature Granulocyte (auto 2018-12-20 14:59:00* Test Item Value Reference Range Interpretation Comments Absolute Immature Granulocyte (auto (jeff t code = Absolute Immature Granulocyte (auto) 0.04 0-0.1 [facility]05[facility]48 02:40:00 [facility] [address] [address] Patient Name: MINA DIAZ MR #: [id number] : 1950 Age/Sex: 68/F Req #: [id number] Adm Physician: Ordered by: BYRON JACKSON MD Report #: [id number] Location: ER Room/Bed: Procedure: [id number] CT /CT BRAIN WO Exam Date: 08/25/18 Exam Time: 219 REPORT STATUS: Signed EXAMINATION: Head and maxillofacial CT without contrast. HISTORY: Dizziness. Headache, facial pain for last 2 days, facial pressure. COMPARISON: None. TECHNIQUE: Multidetector axial images were obtained without contrast from the foramen mag num to the vertex and over the face. The images were reconstructed using brain and bone algorithms. Thin section brain images were reformatted into coronal and sagittal planes. Intravenous contrast: None. Dose modulation, itera tive reconstruction, and/or weight based adjustment of the mA/kV was utilized to reduce the radiation dose to as low as reasonably achievable. Head CT findings: Skull: No lytic or blastic lesions. No fractures. Pare nchyma: Normal. No mass, hemorrhage or CT evidence of acute vascular insult. Brain volume: Normal for age. Ventricles: No hydrocephalus or d isplacement. Arteries: No density suggestive of thrombus. Dural sinuses: No abnormal density. Extra-axial spaces: No abnormal density. Foramen magnum: No mass, Chiari malformation, or basilar invagination. Sella: Partially empty, mostly CSF filled Paranasal/mastoid sinu ses: Imaged portions unremarkable. Face CT findings: Bones: No acut e facial fractures, chronic nondisplaced fracture of the left nasal bone and f rontal process of the maxilla. Degenerative changes of the bilateral TMJs. Facial soft tissues: Unremarkable. Orbits contents: Unremarkable. Paranasal sinuses and drainage pathways: Clear and patent. Nasal septum and nasal cavities: Midline. Anatomic variations: No significant a natomic variations. Teeth: No acute abnormality of the visualized teeth . IMPRESSION: 1. Normal head CT. 2. The paranasal sinuses and d rainage pathways are clear. 3. Degenerative changes of the bilateral TMJs. Signed by: Dr. Pavan Lawson M.D. on 08/25/2018 2:44 AM Dictated B y: PAVAN LAWSON MD 3 Tr anscribed By: MIR on 08/25/18243 COPY TO: BYRON JACKSON MD CT MAXIO FAC/JOEL [id number] 02:40:00 [place] [address] Patient Name: MINA DIAZ MR #: [id number] : 1950 Age/Sex: 68/F Req #: [id number] Adm Physician: Ordered by: BYRON JACKSON MD Report #: [id number] Location: ER Room/Bed: Procedure: [id number] CT /CT MAXIO FAC/PARANAS WO Exam Date: 08/25/18 Exam Ti me: 0220 REPORT STATUS: Signed E XAMINATION: Head and maxillofacial CT without contrast. HISTORY: Dizzines s. Headache, facial pain for last 2 days, facial pressure. COMPARISON: None. TECHNIQUE: Multidetector axial images were obtained without contrast from the foramen magnum to the vertex and over the face. The images were reconstructed using brain and bone algorithms. Thin section brain images were reformatted into coronal and sagittal planes. Intravenous contrast: None. Dose modul ation, iterative reconstruction, and/or weight based adjustment of the mA/kV w as utilized to reduce the radiation dose to as low as reasonably achievable. Head CT findings: Skull: No lytic or blastic lesions. No fractures. Parenchyma: Normal. No mass, hemorrhage or CT evidence of acute vascular insult. Brain volume: Normal for age. Ventricles: No hydroc ephalus or displacement. Arteries: No density suggestive of thrombus. Dural sinuses: No abnormal density. Extra-axial spaces: No abnorm al density. Foramen magnum: No mass, Chiari malformation, or basilar inv agination. Sella: Partially empty, mostly CSF filled Paranasal/ mastoid sinuses: Imaged portions unremarkable. Face CT findings: Zak elly: No acute facial fractures, chronic nondisplaced fracture of the left nasa l bone and frontal process of the maxilla. Degenerative changes of the bilater al TMJs. Facial soft tissues: Unremarkable. Orbits contents: Unr emarkable. Paranasal sinuses and drainage pathways: Clear and patent. Nasal septum and nasal cavities: Midline. Anatomic variations: No s ignificant anatomic variations. Teeth: No acute abnormality of the visu alized teeth. IMPRESSION: 1. Normal head CT. 2. The paranasal s inuses and drainage pathways are clear. 3. Degenerative changes of the treasure ateral TMJs. Signed by: Dr. Pavan Lawson M.D. on 08/25/2018 2:44 AM Dictated By: PAVAN LAWSON MD 3 COPY TO: ANT JACKSON MD BREAST,OZAPLG7375-35-12 17:12:00 RUN DATE: 08/20/18 [place] - Lab PAGE 1 RUN TIME: 1713 Specimen Inqui ry RUN USER: INTERFACE PATIENT: MINA DIAZ ACCT #: V [id number] LOC: YamelKalpanaJENNIFER U #: [id number] AGE/SX: 68/F ROOM: RE08/18/18REG DR: Javier Dimas DO : [birth year] BED: DIS: STATUS: PRE REF TLOC: SPEC #: [id number] RECD: 08/18/18 STATUS: SARAH REQ #: [id number] REG: 08/18/[address]: Racquel Rocha MD ENTERED: 08/18/18 SP TYPE: BX BREAST OTHR DR: TUMOR REGISTRY ORDERED: GROSS COPIES TO: Racquel Rocha MD [address], [address] [place] [address] TUMOR REGISTRY JAZMYN ERS: MALIGNANCY PROCEDURES: GROSS (08/20/18-1425) TISSUES: 1. BREAST C ORE BIOPSY - LEFT, 10 O'CLOCK 3CMFN 2. BREAST CORE BIOPSY - RIGHT 1 O'CL OCK 14CMFN CLINICAL HISTORY COLLECTION DATE: 08/18/2018 LEFT BR EAST 10 O'CLOCK 1.3 CM x 0.5 CM x 1.3 CM MASS MIDDLE DEPTH BREAST MASS - F IBROADENOMA VS CA COMMENT Sections of the second specimen show cor e biopsies of tissue consisting of dense fibrosis, a small amount of adipose ti ssue and scattered skeletal muscle fibers. A proliferation of malignant cells extends throughout the biopsies. The cells are arranged as individual cells fo rming linear strands (gland formation 3/3). The malignant cells have nuclei th at are mildly to moderately pleomorphic and most have small to inconspicuous nu cleoli (nuclear grade 2/3). A few malignant cells have prominent nuclear vacuo les and there is a suggestion of targetoid mucin focally. Mitotic activity is low (mitotic rate 1/3). This gives a Gregory score of 6 corresponding to a histologic grade 2 lesion. Paraffin embedded tissue from the second speci men was submitted for immunoperoxidase stains. The slides are reviewed at [facility]. The controls stain appropriately. The malignant cells are shown to be strongly and diffusely positive for pancytokeratin confi rming epithelial origin. No reactivity for E-Cadherin is present compatible wi th lobular differentiation. The tumor is seen extending through fibrous tissue and skeletal muscle fibers. No lymphovascular invasion is identified. CONTINUED ON NEXT PAGE RUN DATE: 08/20 [facility] PAGE 2 RUN TIME: 1713 Specimen Inquiry RUN U SER: INTERFACE ------- -----SPEC #: [id number] PATIENT: EMILYMINA #[id number] (Continued) COMMENT (Continued) Pr ognostic studies will be performed on paraffin embedded tissue and the results w ill be issued in an addendum report. 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 The previous lesion measur ed 1.9 cm in diameter (T1c NX MX) and extended to the surgical margin of resect ion. The current lesion likely represents a recurrence. Clinical correlation is necessary. FINAL DIAGNOSIS Left breast, 10 o'clock area, 3 CMFN, c ore biopsy: FIBROADENOMA NEGATIVE FOR MALIGNANCY Right breas t, 1 o'clock area, 14 CMFN, core biopsy: INVASIVE LOBULAR CARCINOMA, NOTT ANA CRISTINA HISTOLOGIC GRADE 2, see comment TUMOR INVADES FIBROUS STROMA AND S KELETAL MUSCLE FIBERS NO LYMPHOVASCULAR INVASION IDENTIFIED RRB/sm D [phone] MACROSCOPIC The first specimen is received in formalin, labeled with the patient's name, and identified as "Left breast ultrasound BX, 10:00 o'clock 3 cm FN". The specimen consists of three white-espinoza core biopsies measuring between 1 and 1.2 cm in length, and 0.15 cm in diameter, submitted as (1). The second specimen is received in forma moose, labeled with the patient's name, and identified as "Right breast ultrasou nd BX, 1:00 o'clock 14 cm FN" It consists of three white-espinoza core biopsies toro suring from 0.9 to 1.4 cm in length, and up to 0.15 cm in diameter, submitted as (2). Blue ink is placed on the biopsies. GROSS PERFORMED AT [facility] [address] [place] [address], [place] [address] [phone] C ONTINUED ON NEXT PAGE RUN DATE: 08/20/18 [place] [employer] [facility] PAGE 3 RUN TIME: 1713 Specimen Inquiry RUN USER: INTERFACE SPEC #: [id number] PATIENT: EMILYMINA #[id number] (Continued) - MICROSCOPIC All of the stains, including any controls performed, stain appropriately. MICROSCOPIC PERFORMED AT [facility] [address] [facility] [address] [phone] Diagnosis performed at: [facility], [address] [place], [place] [address] Signed PEYMAN GREEN ON FILE Chris Watson MD 08/20/18 1712 --------- --- END OF REPOR T [id number] 17:15:00 RUN DATE: 04/13/18 [place] - [facility] [place] PAGE 1 RUN TIME: 1716 Specimen Inqui ry RUN USER: INTERFACE PATIENT: MINA DIAZAR ACCT #: V [id number] LOC: EmilyDSU U #: [id number] AGE/SX: 67/F ROOM: RE04/09/18REG DR: Walter Carmona MD : 50 BED: DIS: STATUS: KASH RIOS TLOC: SPEC #: [id number] RECD: 04/12/18 STATUS: SARAH MCMAHON #: [id number] REG: 04/09/18- SUBM DR: Walter Carmona MD ENTERED: 04/12/18 SP TYPE: HEMORRHOID OTHR DR: Javier Neff od, DO ORDERED: GROSS COPIES TO: Javier Dimas DO [address] [place] [address] Walter Carmona MD [address] [place] [address] PROCEDURES: GROSS (04/13/18-1513) TI SSUES: HEMORRHOIDS CLINICAL HISTORY COLLECTION DATE: 2017 HEMORRHOIDS FINAL DIAGNOSIS Hemorrhoids, hemorrhoidectomy: ANORECTAL HEMORRHOIDS NEGATIVE FOR MALIGNANCY DMW/ D 46811 MACROSCOPIC The specimen is received in formalin, labeled with the patient's name and identified as "hemorrhoids". It consists of a espinoza white and pink soft tissue measuring 4.0 X 2.2 X 1.8 cm. Sectioning reveals a espinoza soft cut surface with areas of hemorrhage. Ready Mix Truck Driver sections is submitted as (1). GROSS PERFORMED AT [facility] CONTINUED ON NEXT PAGE RUN DATE: 04/13/18 [facility] PAGE 2 RUN TIME: 1716 Specimen Inquiry RUN USER: IN FREDERICK SP EC #: [id number] PATIENT: MINA DIAZ #[id number] ( Continued) MACROSCOPIC (Continued) [facility] [address] [place] [address] [phone] MICROSCOPIC MICROSCOPIC PERFORMED AT [facility] All of the stains, including any controls performed, stain appropriately. [facility] [address] [place] [address] [phone])[phone] PERFORMING SITE Diagnosis performed at: [facility] [address] [place] [address] [phone] Signed SIGNATURE ON FILE Steffany Gardner 04/13/18 1715 END OF REPORT
--- OUTSIDE RECORDS SUMMARY | 2019-12-02 20:21 | XMS REPORT | Continuity of Care Document ---
Author Author [facility] t Organization [facility] Address [address] [place] [address] Phone Unavailable Care Team Providers Care Screening Representative Name Role Phone Melissa DIMAS DO PCP Zeynep BUTT Attphys Unavailable MISAELDaisy Attphys Unavailable MANUEL, S AMBICA Attphys Unavailable Payers Payer Name Policy Type Policy Number Effective Date Expiration Date Tahira morales [facility] [id number] [facility] Medicare A & B [id number] [facility] Problems This patient has no known problems. Allergies, Adverse Reactions, Alerts Allergy Name Allergy Type Status Severity Reaction(s) Onset Date Inacti ve Date Treating Clinician Comments Source No Known Allergies DA Active U 2018-04-16 00:00:00 [facility] No Known Allergies DA Active U 2012-11-26 00:00:00 [facility] Medications This patient has no known medications. Procedures Procedure Date / Time Performed Performing Clinician Sourdewey e Computed tomography of brain without radiopaque contrast 201 01-09-19 00:00:00 FILEMON KUNZ [facility] Computed tomography of brain without radiopaque contrast 201 01-06-24 00:00:00 BYRON JACKSON [facility] CT maxillofacial area wo contrast 2018-08-25 00:00:00 FRED JACKSON [facility] Encounters Start Date/Time End Date/Time Encounter Type Admission Type Attendi [facility] Care Department Encounter ID Source 2018-12-20 14:31:00 2018-12-20 16:40:00 Departed Emergency Room 1 GIN D[facility] [id number] [facility] 2018-08-25 01:33:00 2018-08-25 06:03:00 Departed Emergency Room 1 BYRON JACKSON [facility] [id number] [facility] Results Test Description Test Time Test Comments Results Result Comments Source CHEST SINGLE (PORTABLE) 2019-11-30 16:03:00 [place] [address] Patient Name: MINA DIAZ MR #: [id number] : 1950 Age/Sex: 69/F Req #: [id number] Adm Physician: Ordered by: ALEXEY BUTT MD Report #: [id number] Location: ER Room/Bed: Procedure: [id number] DX/CHEST SINGLE (PORTABLE) Exam Date: 11/30/19 Exam [...] BUTT MD CT BRAIN WO 2018-12-20 15:48:00 [place] [address] Patient Name: MINA DIAZ MR #: [id number] : 1950 Age/Sex: 68/F Req #: [id number] Adm Physician: Ordered by: FILEMON KUNZ NP Report #: [id number] Location: ER Room/Bed: Procedure: [id number] CT/CT BRAIN WO Exam Date: 12/20/18 Exam [...] Level (test code = 2951-2) 139 136-145 [facility]assium Vhony5255-28-38 15:19:00* Test Item Value Reference Range Interpretation Comments Potassium Level (test code = 2823-3) 3.8 3.5-5.1 [facility] TexasChloride Ynwmd1729-41-82 15:19:00* Test Item Value Reference Range Interpretation Comments Chloride Level (test code = 2075-0) 104 98-107 [facility] TexasCarbon Dioxide Bryxp3289-81-02 15:19:00* Test Item Value Reference Range Interpretation Comments Carbon Dioxide Level (test code = 2028-9) 24 22-29 [facility] TexasAnion Dtn3559-14-41 15:19:00* Test Item Value Reference Range Interpretation Comments Anion Gap (test code = 93328-1) 14.8 8-16 [facility] TexasBlood Urea Npekflpx0326-90-13 15:19:00* Test Item Value Reference Range Interpretation Comments Blood Urea Nitrogen (test code = 3094-0) 15 7-26 [facility] TexasCreatinine2019-08-19 15:19:00* Test Item Value Reference Range Interpretation Comments Creatinine (test code = 2160-0) 0.88 0.57-1.11 [facility] TexasBUN/Creatinine Jogkk7635-82-65 15:19:00* Test Item Value Reference Range Interpretation Comments BUN/Creatinine Ratio (test code = 3097-3) 17 6-25 [facility] TexasEstimat Glomerular Filtration Rate 2018-12-20 15:19:00* Test Item Value Reference Range Interpretation Comments Estimat Glomerular Filtration Rate (test code = 191102347) > 60 >60 Ranges were taken from the National Kidney Disease Education Program and the [facility] Kidney Foundation literature.Reference ranges:60 or greater: Dtfeuk89-56 ( for 3 consecutive months): Chronic kidney disease 15 or less: Kidney failureBaptist Hospitals of Southeast TexasGlucose Nnjlz3041-28-28 15:19:00* Test Item Value Reference Range Interpretation Comments Glucose Level (test code = CYB4477) 129 74-118 H [facility] TexasCalcium Lntcf8926-19-67 15:19:00* Test Item Value Reference Range Interpretation Comments Calcium Level (test code = 30031-1) 9.4 8.4-10.2 [facility] TexasTotal Ixlbfqvpk8768-73-21 15:19:00* Test Item Value Reference Range Interpretation Comments Total Bilirubin (test code = 1975-2) 0.5 0.2-1.2 [facility] TexasAspartate Amino Transf (AST/SGOT) 2018-12-20 15:19:00* Test Item Value Reference Range Interpretation Comments Aspartate Amino Transf (AST/SGOT) (test code = Aspartate Amino Transf (AST/SGOT)) 14 5-34 [facility] TexasAlanine Aminotransferase (ALT/SGPT) 2018-12-20 15:19:00* Test Item Value Reference Range Interpretation Comments Alanine Aminotransferase (ALT/SGPT) (test code = 1742-6) 14 0-55 [facility] TexasTotal Fcsqehv8643-33-72 15:19:00* Test Item Value Reference Range Interpretation Comments Total Protein (test code = 2885-2) 7.3 6.5-8.1 [facility] TexasAlbumin2019-08-19 15:19:00* Test Item Value Reference Range Interpretation Comments Albumin (test code = 1751-7) 3.4 3.5-5.0 L [facility] TexasGlobulin2019-08-19 15:19:00* Test Item Value Reference Range Interpretation Comments Globulin (test code = 74249-2) 3.9 2.3-3.5 H [facility] TexasAlbumin/Globulin Xdqbj9359-09-20 15:19:00 * Test Item Value Reference Range Interpretation Comments Albumin/Globulin Ratio (test code = 1759-0) 0.9 0.8-2.0 [facility] TexasAlkaline Xamzdudmder7939-31-59 15:19:00* Test Item Value Reference Range Interpretation Comments Alkaline Phosphatase (test code = 6768-6) 143 40-150 [facility] TexasUrine MAW0645-39-49 15:12:00* Test Item Value Reference Range Interpretation Comments Urine WBC (test code = 5821-4) 0-5 0-5 [facility] TexasUrine ZRF0410-11-76 15:12:00* Test Item Value Reference Range Interpretation Comments Urine RBC (test code = 39785-7) NONE 0-5 [facility] TexasUrine Eotvawiw1888-39-77 15:12:00* Test Item Value Reference Range Interpretation Comments Urine Bacteria (test code = 99722-2) MODERATE NONE H [facility] TexasUrine Epithelial Klanl9311-61-92 15:12:00 * Test Item Value Reference Range Interpretation Comments Urine Epithelial Cells (test code = 35250-1) FEW NONE [facility] TexasUrine Wgjts5804-43-09 15:00:00* Test Item Value Reference Range Interpretation Comments Urine Color (test code = 5778-6) YELLOW YELLOW [facility] TexasUrine Nmrhtdq4662-00-93 15:00:00* Test Item Value Reference Range Interpretation Comments Urine Clarity (test code = 61744-6) CLEAR CLEAR [facility] TexasUrine Specific Covdtsh4935-64-52 15:00:00 * Test Item Value Reference Range Interpretation Comments Urine Specific [place] (test code = 5811-5) 1.025 1.010-1.02 5 [facility] TexasUrine wJ0787-82-82 15:00:00* Test Item Value Reference Range Interpretation Comments Urine pH (test code = 08857-7) 6 5-7 [facility] Leukocyte Dlhsxwly5838-68-40 15:00:00* Test Item Value Reference Range Interpretation Comments Urine Leukocyte Esterase (test code = 52597-4) TRACE NEGATIV E H [facility] TexasUrine Kumlzlm0413-66-37 15:00:00* Test Item Value Reference Range Interpretation Comments Urine Nitrite (test code = 95968-9) NEGATIVE NEGATIVE [facility] TexasUrine Wqvcesw7454-56-57 15:00:00* Test Item Value Reference Range Interpretation Comments Urine Protein (test code = 22754-2) TRACE NEGATIVE H [facility] TexasUrine Glucose (UA)2018-12-20 15:00:00* Test Item Value Reference Range Interpretation Comments Urine Glucose (UA) (test code = 83016-2) NEGATIVE NEGATIVE [facility] TexasUrine Deymwco4797-70-53 15:00:00* Test Item Value Reference Range Interpretation Comments Urine Ketones (test code = 58962-9) NEGATIVE NEGATIVE [facility] TexasUrine Axjkpzchbirz7982-24-24 15:00:00* Test Item Value Reference Range Interpretation Comments Urine Urobilinogen (test code = 65302-8) 0.2 0.2-1 [facility] TexasUrine Kpsrwhvxm9333-22-89 15:00:00* Test Item Value Reference Range Interpretation Comments Urine Bilirubin (test code = 1977-8) NEGATIVE NEGATIVE [facility] TexasUrine Hpnxv4657-29-81 15:00:00* Test Item Value Reference Range Interpretation Comments Urine Blood (test code = 74824-7) NEGATIVE NEGATIVE [facility] TexasWhite Blood Hkyty3072-97-24 14:59:00* Test Item Value Reference Range Interpretation Comments White Blood Count (test code = 6690-2) 11.06 4.8-10.8 H [facility] TexasRed Blood Ycpay7923-97-21 14:59:00* Test Item Value Reference Range Interpretation Comments Red Blood Count (test code = 789-8) 3.36 3.6-5.1 L [facility] TexasHemoglobin2019-08-19 14:59:00* Test Item Value Reference Range Interpretation Comments Hemoglobin (test code = 24533-8) 9.9 12.0-16.0 L [facility] TexasHematocrit2019-08-19 14:59:00* Test Item Value Reference Range Interpretation Comments Hematocrit (test code = 4544-3) 31.3 34.2-44.1 L [facility] TexasMean Corpuscular Ojphtq7613-32-38 14:59:00* Test Item Value Reference Range Interpretation Comments Mean Corpuscular Volume (test code = 787-2) 93.2 81-99 [facility] TexasMean Corpuscular Kvkxafmila0983-20-34 14:59:00* Test Item Value Reference Range Interpretation Comments Mean Corpuscular Hemoglobin (test code = 785-6) 29.5 28-32 [facility] TexasMean Corpuscular Hemoglobin Concent 2018-12-20 14:59:00* Test Item Value Reference Range Interpretation Comments Mean Corpuscular Hemoglobin Concent (test code = 786-4) 31.6 31-35 [facility] TexasRed Cell Distribution Puelq3584-92-73 14:59:00* Test Item Value Reference Range Interpretation Comments Red Cell Distribution Width (test code = 49735-2) 15.1 11.7 -14.4 H [facility] TexasPlatelet Bstny4588-32-27 14:59:00* Test Item Value Reference Range Interpretation Comments Platelet Count (test code = 777-3) 204 140-360 [facility] TexasNeutrophils (%) (Auto)2018-12-20 14:59:00 * Test Item Value Reference Range Interpretation Comments Neutrophils (%) (Auto) (test code = 32364-7) 66.2 38.7-80.0 [facility] TexasLymphocytes (%) (Auto)2018-12-20 14:59:00 * Test Item Value Reference Range Interpretation Comments Lymphocytes (%) (Auto) (test code = 736-9) 25.4 18.0-39.1 [facility] TexasMonocytes (%) (Auto)2018-12-20 14:59:00* Test Item Value Reference Range Interpretation Comments Monocytes (%) (Auto) (test code = 5905-5) 5.1 4.4-11.3 [facility] TexasEosinophils (%) (Auto)2018-12-20 14:59:00 * Test Item Value Reference Range Interpretation Comments Eosinophils (%) (Auto) (test code = 713-8) 2.4 0.0-6.0 [facility] TexasBasophils (%) (Auto)2018-12-20 14:59:00* Test Item Value Reference Range Interpretation Comments Basophils (%) (Auto) (test code = 706-2) 0.5 0.0-1.0 [facility] TexasIM GRANULOCYTES %2018-12-20 14:59:00* Test Item Value Reference Range Interpretation Comments IM GRANULOCYTES % (test code = IM GRANULOCYTES %) 0.4 0.0- 1.0 [facility] TexasNeutrophils # (Auto)2018-12-20 14:59:00* Test Item Value Reference Range Interpretation Comments Neutrophils # (Auto) (test code = 751-8) 7.3 2.1-6.9 H [facility] TexasLymphocytes # (Auto)2018-12-20 14:59:00* Test Item Value Reference Range Interpretation Comments Lymphocytes # (Auto) (test code = 30303-2) 2.8 1.0-3.2 [facility] TexasMonocytes # (Auto)2018-12-20 14:59:00* Test Item Value Reference Range Interpretation Comments Monocytes # (Auto) (test code = 742-7) 0.6 0.2-0.8 [facility] TexasEosinophils # (Auto)2018-12-20 14:59:00* Test Item Value Reference Range Interpretation Comments Eosinophils # (Auto) (test code = 711-2) 0.3 0.0-0.4 [facility] TexasBasophils # (Auto)2018-12-20 14:59:00* Test Item Value Reference Range Interpretation Comments Basophils # (Auto) (test code = 704-7) 0.1 0.0-0.1 [facility] TexasAbsolute Immature Granulocyte (auto 2018-12-20 14:59:00* Test Item Value Reference Range Interpretation Comments Absolute Immature Granulocyte (auto (jeff t code = Absolute Immature Granulocyte (auto) 0.04 0-0.1 [facility] SV4136-65-05 02:40:00 [facility] [address] [address] Patient Name: MINA DIAZ MR #: [id number] : 1950 Age/Sex: 68/F Req #: [id number] Adm Physician: Ordered by: BYRON JACKSON MD Report #: [id number] Location: ER Room/Bed: Procedure: [id number] CT /CT BRAIN WO Exam Date: 08/25/18 [...] TO: BYRON JACKSON MD CT MAXIO FAC/JOEL BE2940-65-76 02:40:00 [place] [address] Patient Name: MINA DIAZ MR #: [id number] : 1950 Age/Sex: 68/F Req #: [id number] Adm Physician: Ordered by: BYRON JACKSON MD Report #: [id number] Location: ER Room/Bed: Procedure: [id number] CT /CT MAXIO FAC/PARANAS WO Exam Date: [...] MD 3 COPY TO: ANT JACKSON MD BREAST,CAJHEW1192-88-42 17:12:00 RUN DATE: 08/20/18 [place] - Lab PAGE 1 RUN TIME: 1713 Specimen Inqui ry RUN USER: INTERFACE PATIENT: MINA DIAZ ACCT #: V [id number] LOC: YamelKalpanaJENNIFER U #: [id number] AGE/SX: 68/F ROOM: RE08/18/18REG DR: Javier Dimas DO : [birth year] BED: DIS: STATUS: PRE REF TLOC: SPEC #: [id number] RECD: 08/18/18 STATUS: SARAH REQ #: [id number] REG: 08/18/[address]: Racquel Rocha MD ENTERED: 08/18/18 SP TYPE: BX BREAST OTHR DR: TUMOR REGISTRY ORDERED: GROSS COPIES TO: Racquel Rocha MD [address], [address] [place] [address] TUMOR REGISTRY JAZMYN ERS: MALIGNANCY [...] immunoperoxidase stains. The slides are reviewed at [facility]. The controls stain appropriately. The malignant cells are shown to be strongly and diffusely positive for pancytokeratin confi rming epithelial origin. No reactivity for E-Cadherin is present compatible wi th lobular differentiation. The tumor is seen extending through fibrous tissue and skeletal muscle fibers. No lymphovascular invasion is identified. CONTINUED ON NEXT PAGE RUN DATE: 08/20 [facility] PAGE 2 RUN TIME: 1713 Specimen Inquiry RUN U SER: INTERFACE ------- -----SPEC #: [id number] PATIENT: EMILYMINA #[id number] (Continued) COMMENT (Continued) Pr ognostic studies [...] FIBERS NO LYMPHOVASCULAR INVASION IDENTIFIED RRB/sm D [phone] MACROSCOPIC The first specimen is received in [...] placed on the biopsies. GROSS PERFORMED AT [facility] [address] [place] [address], [place] [address] [phone] C ONTINUED ON NEXT PAGE RUN DATE: 08/20/18 [place] [facility] PAGE 3 RUN TIME: 1713 Specimen Inquiry RUN USER: INTERFACE SPEC #: [id number] PATIENT: EMILYMINA #[id number] (Continued) - MICROSCOPIC All of the stains, including any controls performed, stain appropriately. MICROSCOPIC PERFORMED AT [facility] [address] [place] [address] [phone] PERFORM[address] SITE Diagnosis performed at: [facility], [place] [address] [place], [place] [address] Signed PEYMAN GREEN ON FILE Chris Watson MD 08/20/18 1712 --------- --- END OF REPOR T LQPAVORPWVU8763-68-96 17:15:00 RUN DATE: 04/13/18 [place] [facility] PAGE 1 RUN TIME: 1716 Specimen Inqui ry RUN USER: INTERFACE PATIENT: MINA DIAZAR ACCT #: V [id number] LOC: EmilyDSU U #: [id number] AGE/SX: 67/F ROOM: RE04/09/18REG DR: Walter Carmona MD : [birth year] BED: DIS: STATUS: KASH RIOS TLOC: SPEC #: [id number] RECD: 04/12/18 STATUS: SARAH MCMAHON #: [id number] REG: 04/09/18- SUBM DR: Walter Carmona MD ENTERED: 04/12/18 SP TYPE: HEMORRHOID OTHR DR: Javier Neff od, DO ORDERED: GROSS COPIES TO: Javier Dimas DO [address] [place] [address] Walter Carmona MD [address] [place] [address] PROCEDURES: GROSS (04/13/18-1513) TI SSUES: HEMORRHOIDS CLINICAL HISTORY COLLECTION DATE: 2017 HEMORRHOIDS FINAL DIAGNOSIS Hemorrhoids, hemorrhoidectomy: ANORECTAL HEMORRHOIDS NEGATIVE FOR MALIGNANCY DMW/ D 36756 MACROSCOPIC The specimen is received in formalin, labeled with the patient's name and identified as "hemorrhoids". It consists of a espinoza white and pink soft tissue measuring 4.0 X 2.2 X 1.8 cm. Sectioning reveals a espinoza soft cut surface with areas of hemorrhage. Sdv Pilot/Navigator/Dds Operator sections is submitted as (1). GROSS PERFORMED AT [facility] CONTINUED ON NEXT PAGE RUN DATE: 04/13/18 [facility] PAGE 2 RUN TIME: 1716 Specimen Inquiry RUN USER: IN FREDERICK SP EC #: [id number] PATIENT: MINA DIAZ #[id number] ( Continued) MACROSCOPIC (Continued) [facility] [address] [place] [address] [phone] MICROSCOPIC MICROSCOPIC PERFORMED AT [facility] All of the stains, including any controls performed, stain appropriately. [facility] [address] [place] [address] ([phone] PERFORMING SITE Diagnosis performed at: [facility] [address] [place] [address] [phone] Signed SIGNATURE ON FILE Steffany Gardner 04/13/18 1715 END OF REPORT
[2019-12-02] MEDS: SIMVASTATIN 20 MG TAB PO SCH (20:42)
--- NOTE | 2019-12-02 21:00 | NUR ---
PATIENT OFF THE UNIT FOR PROCEDURE.
[2019-12-02] MEDS ORDERED: LIDOCAINE HCL 2% LOCAL INJ 5 ML SDV VIAL INJ ONE (21:35)
[2019-12-02] MEDS ORDERED: PROPOFOL IV EMULSION 10 MG/ML 20 ML VIAL ONE (21:35)
--- NOTE | 2019-12-02 22:12 | NUR ---
RECEIVED PATIENT FROM ENDOSCOPY. PATIENT IS STILL DROWSY BUT RESPONSIVE. VITAL SIGNS WITHIN NORMAL RANGE. BP 128/61 MMHG, VT 61 B/MIN, RR 18 BPM, TEMP. 98.8 F, O2 SATURATION 100% OXYGEN AT 2L/MIN.
--- NOTE | 2019-12-02 22:21 | Operative Report ---
DATE OF PROCEDURE: 12/02/2019 SURGEON: Charlie Olivares MD PROCEDURE: Flexible sigmoidoscopy with biopsies. INDICATIONS FOR PROCEDURE: Rectal bleeding, anemia. MEDICATIONS: The patient was done under MAC, please see anesthesiologist's note. PROCEDURE IN DETAIL: With the patient in left lateral decubitus position, a flexible fiberoptic Olympus gastroscope was introduced into the rectum with ease and all the way to approximately 30 cm from the anal verge. The scope could not be advanced any further as the lumen was stenotic and sharply angulated. The mucosa overlying the rectum was nodular, friable, and somewhat firm. Multiple biopsies were obtained. The EGD scope could not be retroflexed in the distal rectum as the rectum was firm. The scope was subsequently withdrawn. The patient tolerated the procedure well. IMPRESSION: 1. Flexible sigmoidoscopy to 30 cm from the anal verge, could not proceed any further with the EGD scope as the lumen was firm and stenotic. 2. Rectal mucosa diffusely nodular and somewhat firm, biopsies were obtained. PLAN: Follow up histology. The patient will need CAT scan of the abdomen and pelvis. We will discuss with attending. Charlie Olivares MD [facility] /[phone] cc: Neftali Grullon MD
[2019-12-03] VITALS (9 sets, daily range): BP systolic 122–143; BP diastolic 55–62
[2019-12-03 06:16] LABS: BASOPHILS % 0.2 % (0.0-1.0); EOSINOPHILS # (AUTO) 0.1 (0.0-0.4); EOSINOPHILS % 0.9 % (0.0-6.0); LYMPHOCYTES # (AUTO) 1.9 (1.0-3.2); LYMPHOCYTES % 35.2 % (18.0-39.1); MEAN CORPUSCULAR HEMOGLOBIN 29.9 pg (28-32); MEAN CORPUSCULAR HGB CONC 31.3 g/dL (31-35); MEAN CORPUSCULAR VOLUME 95.7 fL (81-99); MONOCYTES # (AUTO) 0.2 (0.2-0.8); MONOCYTES % 3.3 % (4.4-11.3); NEUTROPHILS # (AUTO) 3.2 (2.1-6.9); NEUTROPHILS % 58.9 % (38.7-80.0); PLATELET COUNT 120 x10e3/uL (140-360); RED BLOOD COUNT 2.34 x10e6/uL (3.6-5.1); RED CELL DISTRIBUTION WIDTH 15.6 % (11.7-14.4)
[2019-12-03 06:48] LABS: HEMATOCRIT 22.4 % (34.2-44.1)
[2019-12-03 06:53] LABS: ANION GAP 14.3 mmol/L (8-16); CALCIUM 8.1 mg/dL (8.4-10.2); CREATININE, SERUM 1.37 mg/dL (0.57-1.11); POTASSIUM 4.3 mmol/L (3.5-5.1)
--- NOTE | 2019-12-03 06:54 | NUR ---
IM- Progress notes O/N see below ROS; no f/c/s/N/V/D/DARDEN/cp/skin rash/confusion/focal limb weakness v/s; revd PE tired appearing anicteric ns1s2 mod bs; soft nt nd no e/t skin dry flat affect a*ox3; rene meds/labs revd A/P: BARBARA- ivf Moderate anemia- check anemia panel; Metabolic acidosis- bicarbs DM2- hab1c/lipids MORALES- check echo and consult cards; check COVID19 Prop; scd dispo: Pt consult; get echo. 12-01 Hba1c/LDL 6.3/36; Low B12 - start supplement; Continue IVF and bicarbs; check renal U/S. check H/H and renal fn. 8-1 Mild right hydronephrosis; renal fn improving; scope could not be advanced in endoscopy- plan pending; worsening anemia, Hb 7, give [address] needed Neftali Grullon MD, PhD.
[2019-12-03] MEDS ORDERED: SODIUM CHLORIDE 0.9% 250ML 250 ML IV ONE (07:00)
--- NOTE | 2019-12-03 07:04 | NUR ---
Raghav Whelan and H Dr. Grullon made aware new orders received.
[2019-12-03] MEDS: INSULIN REGULAR, HUMAN 100 UNIT/1 ML 3ML VIAL SQ SCH ×4 (07:30→20:12)
[2019-12-03] MEDS: CYANOCOBALAMIN INJ 1,000 MCG/ML VIAL IM SCH (09:24)
[2019-12-03] MEDS: FERROUS SULFATE 325 MG TAB PO SCH ×2 (09:24→17:13)
[2019-12-03] MEDS: METOPROLOL TARTRATE 25 MG TAB PO SCH (09:25)
[2019-12-03] MEDS: BUPROPION HCL 150 MG TABCR PO SCH (09:25)
[2019-12-03] MEDS: PANTOPRAZOLE SOD 40 MG TABEC PO SCH (09:25)
[2019-12-03] MEDS: SODIUM BICARBONATE 650 MG TAB PO SCH ×2 (09:25→17:13)
[2019-12-03] MEDS: MAGNESIUM OXIDE 400 MG TAB PO SCH (09:25)
--- NOTE | 2019-12-03 10:00 | NUR ---
Pt was told by Dr. Grullon she would be receiving blood transfusion today for low hemoglobin. Pt consented to receiving blood.
[2019-12-03] MEDS ORDERED: SODIUM CHLORIDE 0.9% 250ML 250 ML ONE (10:40)
--- NOTE | 2019-12-03 13:55 | NUR ---
First unit of blood complete. 0 s/s of acute distress noted during the transfusion. No medications given prior or after transfusion.
--- NOTE | 2019-12-03 17:34 | Consultation ---
DATE OF CONSULTATION: REASON FOR CONSULTATION: COVID-19. HISTORY OF PRESENT ILLNESS: This is a 69-year-old female, history of hypertension, diabetes mellitus, anemia, anxiety, depression, hyperlipidemia, comes into the emergency room with shortness of breath and fatigue. The patient was seen by her primary care physician. She was diagnosed with COVID-19. PAST MEDICAL HISTORY: As above. PAST SURGICAL HISTORY: As above. ALLERGIES: NKA. SOCIAL HISTORY: There is no smoking, drug abuse, or alcohol abuse. FAMILY HISTORY: Unremarkable. The patient was admitted. She was found to be anemic. Her hemoglobin was 7.9. Her white count was 4.9. Sodium 136, potassium 4.1, creatinine 1.38. The patient had a flexible sigmoidoscopy for rectal bleed and it was found that she has a mass. The patient is currently alert, oriented, and not short of breath, saturating very well on room air. PHYSICAL EXAMINATION: GENERAL: She is currently alert, oriented. VITAL SIGNS: Stable, currently afebrile. HEENT: She is not icteric. NECK: Supple. CHEST: Clear. HEART: S1, S2. ABDOMEN: Soft. Bowel sounds present. No tenderness. EXTREMITIES: No edema. SKIN: No rash. IMPRESSION: 1. Positive COVID-19, asymptomatic. I am not so sure infection or not, but I think since she was not aware, we will just put her on isolation for 10 days. 2. Anemia with abnormal workup concerned about malignancy. Can proceed as ordered. 3. No need of antibiotic from Infectious Disease point of view, no need for anticoagulation from Infectious Disease point of view, but it was felt necessary because she may have malignancy. We will defer that to the attending and the team. She would probably need surgical evaluation and CAT scan. MD SAHRA Perez/FRANCES /[id number]
--- NOTE | 2019-12-03 17:45 | NUR ---
Second unit of blood complete at this time. 0 s/s of acute distress noted. No adverse reactions noted during transfusion or after.
--- NOTE | 2019-12-03 19:00 | NUR ---
RECEIVED PT LAYING SEMI FOWLERS IN BED, AAOX3, RR EVN AND NON-LABORED, ON ROOM AIR. NO S/SX OF DISTRESS NOTED. LEFT PT LAYING SEMI FOWLERS IN BED, BED IN LOW LOCKED POSITION, SIDE RAILS UPX2, CALL LIGHT AND PHONE WITHIN REACH.
--- NOTE | 2019-12-03 19:28 | NUR ---
PAGE PLACED WITH MD SILVESTRE'S ANSWERING SERVICE CONCERNING CONSULTATION. WAITING FOR CALLBACK.
--- NOTE | 2019-12-03 19:33 | NUR ---
PAGE PLACED WITH MD GARVIN'S ANSWERING SERVICE CONCERNING CONSULTATION. WAITING FOR CALLBACK.
--- NOTE | 2019-12-03 19:37 | NUR ---
SPOKE WITH MD GARVIN CONCERNING CONSULTATION. NO NEW ORDERS RECEIVED, WILL SEE PATIENT IN THE AM.
--- NOTE | 2019-12-03 20:05 | NUR ---
BLOOD DRAWN FROM (L) AC FOR S/P BLOOD TRANSFUSION HH. PRESSURE AND DRESSING APPLIED. BLOOD DELIVERED TO LAB.
[2019-12-03] MEDS: SIMVASTATIN 20 MG TAB PO SCH (20:10)
[2019-12-03 20:24] LABS: HEMATOCRIT 28.3 % (34.2-44.1)
[2019-12-04] VITALS (7 sets, daily range): BP systolic 128–143; BP diastolic 61–66
[2019-12-04] MEDS: INSULIN REGULAR, HUMAN 100 UNIT/1 ML 3ML VIAL SQ SCH ×4 (07:30→19:53)
[2019-12-04] MEDS: FERROUS SULFATE 325 MG TAB PO SCH ×2 (08:25→16:45)
[2019-12-04] MEDS: BUPROPION HCL 150 MG TABCR PO SCH (08:25)
[2019-12-04] MEDS: PANTOPRAZOLE SOD 40 MG TABEC PO SCH (08:25)
[2019-12-04] MEDS: SODIUM BICARBONATE 650 MG TAB PO SCH ×2 (08:25→16:45)
[2019-12-04] MEDS: METOPROLOL TARTRATE 25 MG TAB PO SCH (08:25)
[2019-12-04] MEDS: MAGNESIUM OXIDE 400 MG TAB PO SCH (08:25)
[2019-12-04] MEDS: CYANOCOBALAMIN INJ 1,000 MCG/ML VIAL IM SCH (08:25)
--- NOTE | 2019-12-04 09:00 | NUR ---
Pt was told by Dr. Grullon she would be receiving blood transfusion today for low hemoglobin. Pt consented to receiving blood. Addendum: 12/04/19 at 0919 by Yeny Mcknight RN .
--- NOTE | 2019-12-04 10:26 | NUR ---
Instrument Repair Supervisor spoke with the patient over the phone 9:55-10:25. She is in a healthy grieving place as she has reached out after receiving various communication regarding her health: She may be COVID+ because she has a family member who is but she was not sure, she has her kidneys scanned but has not received any information of any issues, she is having a biopsy on Thursday because the colonoscopy was not successful, she is having exploratory stomach surgery on Thursday to see if there is cancer. She feels depressed and she does not know what to do. When asked how she feels about dying, she responded that she was worried about her dtr that she lives together with and her 4 children and how she would manage without her. The skin tanner confirmed that she has a deep [employer] Kaela and therefore she has no fear of dying but she has a fear of leaving her family. She feels alone because family cannot come to the hospital and she feels depression and sadness because her oldest son (she has 6 children 2B 4G) almost 2 years ago. The skin tanner affirm her depression as a healthy part of grief and affirmed her in her kaela using Mohsen' wrestling in the garden "not my will, thy will be done" The skin tanner invited her to reach out for continual support after her procedures and provided and prayer for her and her family and the medical team caring for her. Instrument Repair Supervisor invited her to also continue to use any technology she can to stay connected and feel the presence of her family. She was grateful. appreciative and felt lifted by the call and the support.
--- NOTE | 2019-12-04 12:17 | Consultation ---
DATE OF CONSULTATION: 12/04/2019 HISTORY OF PRESENT ILLNESS: The is patient is a 69-year-old female admitted to the hospital with anemia and shortness of breath. She has a history of having rectal bleeding for several months. She had attempted colonoscopy which went up to 30 cm and could not go any further because of the stricture. She had a CT of the abdomen and pelvis done about 2 weeks ago at [facility], where she was found to have ascites, some mild inguinal lymphadenopathy and multiple lytic lesions in her bones. The patient has no specific complaints of abdominal pain at this time. She has had no nausea and vomiting. She is having bowel movements. PAST MEDICAL HISTORY: Significant for hypertension, diabetes, hyperlipidemia, anxiety, as well as anemia. PAST SURGICAL HISTORY: Previous surgeries include; partial mastectomy for carcinoma of the breast about 5 or 6 years ago, previous appendectomy, hysterectomy, cholecystectomy, hernia repair. ALLERGIES: SHE HAS NO KNOWN ALLERGIES. MEDICATIONS: Listed in the chart. FAMILY HISTORY: Noncontributory. SOCIAL HISTORY: The patient does not smoke cigarettes, not drink alcohol, use any other drugs. REVIEW OF SYSTEMS: As stated above. She has had no fever, no weight loss. PHYSICAL EXAMINATION: GENERAL: The patient is awake and alert, in no distress. VITAL SIGNS: Normal. She is afebrile. HEENT: Sclerae is not icteric. NECK: Has no masses. LUNGS: Equal breath sounds are clear bilaterally. CARDIAC: Regular rate and rhythm with no murmur. ABDOMEN: Slightly distended. There are healed surgical wounds, it is soft. There is no tenderness. There are no signs of peritonitis. No definite masses palpable. EXTREMITIES: Have no edema. NEUROLOGIC: Grossly intact. LABORATORY DATA: Hemoglobin and hematocrit today, most recent are 9 and 28; on admission was 7.3 and 23.5, white blood cell count is normal. Differential was normal. Chemistries; mildly elevated creatinine 1.37, BUN 22. Electrolytes otherwise are normal. ASSESSMENT: A 69-year-old female with history of breast cancer, previous partial colon resection, who now has some ascites with rectal bleeding, a stricture in her colon, also mildly enlarged inguinal lymph nodes. Plan to evaluate initially with barium enema to see the extent of her colon stricture. It is very concerning that she has recurrent malignancy with the ascites being present also, she may benefit from laparoscopy and possible biopsy of one of the inguinal lymph nodes. I agree the plan for Oncology consultation. Thank you for asking me to see Ms. Ko. MD MEI Gonzalez/FRANCES /[id number]
[2019-12-04] MEDS ORDERED: DIATRIZOATE MEGL/DIATRIZOA SOD 30 ML BTL PO ONE (12:33)
--- NOTE | 2019-12-04 13:36 | NUR ---
INFECTIOUS DISEASE PROGRESS NOTE DR. GRIFFIN HISTORY OF PRESENT ILLNESS: This is a 69-year-old female, history of hypertension, diabetes mellitus, anemia, anxiety, depression, hyperlipidemia, comes into the emergency room with shortness of breath and fatigue. The patient was seen by her primary care physician. She was diagnosed with COVID-19. ROS: NEGATIVE UNLESS OTHERWISE DOCUMENTED PHYSICAL EXAMINATION: GENERAL: She is currently alert, oriented. VITAL SIGNS: Stable, currently afebrile. HEENT: She is not icteric. NECK: Supple. CHEST: Clear. HEART: S1, S2. ABDOMEN: Soft. Bowel sounds present. No tenderness. EXTREMITIES: No edema. SKIN: No rash. IMPRESSION & PLAN: 1. Positive COVID-19, asymptomatic. isolation for 10 days. 2. Anemia with abnormal workup concerned about malignancy. Can proceed as ordered. No need of antibiotic from Infectious Disease point of view, no need for anticoagulation from Infectious Disease point of view, but it was felt necessary because she may have malignancy. We will defer that to the attending and the team. She would probably need surgical evaluation and CAT scan. PT SEEN AND EVALUATED BY DR GRIFFIN
--- NOTE | 2019-12-04 15:54 | Diagnostic Imaging Report ---
EXAM: CT Abdomen and Pelvis WITHOUT contrast INDICATION: Rectal cancer. COMPARISON: None. TECHNIQUE: Abdomen and pelvis were scanned utilizing a multidetector helical scanner from the lung base to the pubic symphysis without administration of IV contrast. Absence of intravenous contrast decreases sensitivity for detection of focal lesions and vascular pathology. Coronal and sagittal reformations were obtained. Routine protocol was performed. IV CONTRAST: None ORAL CONTRAST: None COMPLICATIONS: None RADIATION DOSE: Total DLP: 686.32 mGy*cm Estimated effective dose: (DLP x 0.015 x size factor) mSv CTDIvol has been reviewed. It is below the limits set by the Radiation Protocol Committee (RPC). Dose modulation, iterative reconstruction, and/or weight based adjustment of the mA/kV was utilized to reduce the radiation dose to as low as reasonably achievable. FINDINGS: LINES and TUBES: None. LOWER THORAX: There is multifocal patchy groundglass opacities at the bilateral lung bases which may represent developing pneumonia. HEPATOBILIARY: No focal hepatic lesions. No biliary ductal dilation. GALLBLADDER: No radio-opaque stones or sludge. No wall thickening. SPLEEN: No splenomegaly. PANCREAS: No focal masses or ductal dilatation. ADRENALS: Diffuse thickening of the left adrenal gland. The right adrenal gland is normal. KIDNEYS/URETERS: There is nonspecific perinephric fat stranding bilaterally. No hydronephrosis. No cystic or solid mass lesions. No stones. GI TRACT: There is circumferential wall thickening of the rectum, likely related to known rectal cancer. The right colon is not present, likely surgically removed. There is mild gastric wall thickening which may be related to under-distention. No abnormal distention or evidence of bowel obstruction. The appendix is not visualized, likely surgically removed. PELVIC ORGANS/BLADDER: The urinary bladder is decompressed and not well assessed. Pelvic organs are obscured by free fluid in the pelvis. LYMPH NODES: There are multiple enlarged inguinal lymph nodes measuring up to 1.2 cm. VESSELS: Scattered mild arterial vascular calcifications. PERITONEUM / RETROPERITONEUM: There is small amount of ascites which extends into the paracolic gutters and the pelvis. There is soft tissue infiltration of the omental fat. BONES: The entire bones are densely sclerotic. No acute fracture. SOFT TISSUES: Unremarkable. IMPRESSION: 1. Circumferential wall thickening of the rectum likely related to known history of rectal cancer. 2. Small ascites which extends into the paracolic gutters and the pelvis with soft tissue infiltration of the omental fat. This constellation of findings are suggestive of peritoneal metastasis and malignant ascites. 3. Densely sclerotic bones suggestive of osseous metastasis. 4. Patchy groundglass opacities throughout the bilateral lung bases which may represent developing multifocal pneumonia. 5. Multiple enlarged inguinal lymph nodes may be reactive or metastatic lymph nodes. 6. Left adrenal hyperplasia versus metastasis. Signed by: Mike Estrada MD on 12/04/2019 3:50 PM
--- NOTE | 2019-12-04 16:32 | NUR ---
IM- Progress notes O/N see below ROS; no f/c/s/N/V/D/DARDEN/cp/skin rash/confusion/focal limb weakness v/s; revd PE tired appearing anicteric ns1s2 mod bs; soft nt nd no e/t skin dry flat affect a*ox3; rene meds/labs revd A/P: BARBARA- ivf Moderate anemia- check anemia panel; Metabolic acidosis- bicarbs DM2- hab1c/lipids MORALES- check echo and consult cards; check COVID19 Prop; scd dispo: Pt consult; get echo. - Hba1c/LDL 6.3/36; Low B12 - start supplement; Continue IVF and bicarbs; check renal U/S. check H/H and renal fn. 8-1 Mild right hydronephrosis; renal fn improving; scope could not be advanced in endoscopy- plan pending; worsening anemia, Hb 7, give [address] needed 8-2 CT shows metastatic disease findings of the mesentery/peritoneum. LAD; Rectal wall thickening; Neftali Grullon MD, PhD.
--- NOTE | 2019-12-04 19:20 | NUR ---
WALKING ROUNDS PERFORMED, RECEIVED PT LAYING SEMI FOWLERS IN BED, AAOX3, RR EVEN AND NON-LABORED, ON ROOM AIR. NO S/SX OF DISTRESS NOTED. LEFT PT LAYING SEMI FOWLERS IN BED, BED IN LOW LOCKED POSITION, SIDE RAILS UPX2, CALL LIGHT AND PHONE WITHIN REACH.
[2019-12-04] MEDS: SIMVASTATIN 20 MG TAB PO SCH (20:24)
[2019-12-05] VITALS (8 sets, daily range): BP systolic 131–156; BP diastolic 63–75
[2019-12-05 06:12] LABS: BASOPHILS % 0.4 % (0.0-1.0); EOSINOPHILS # (AUTO) 0.1 (0.0-0.4); HEMATOCRIT 28.7 % (34.2-44.1); HEMOGLOBIN 9.1 g/dL (12.0-16.0); LYMPHOCYTES # (AUTO) 1.9 (1.0-3.2); LYMPHOCYTES % 36.6 % (18.0-39.1); MEAN CORPUSCULAR HEMOGLOBIN 29.6 pg (28-32); MEAN CORPUSCULAR HGB CONC 31.7 g/dL (31-35); MEAN CORPUSCULAR VOLUME 93.5 fL (81-99); MONOCYTES # (AUTO) 0.2 (0.2-0.8); MONOCYTES % 3.6 % (4.4-11.3); NEUTROPHILS # (AUTO) 2.9 (2.1-6.9); NEUTROPHILS % 56.6 % (38.7-80.0); PLATELET COUNT 104 x10e3/uL (140-360); RED BLOOD COUNT 3.07 x10e6/uL (3.6-5.1)
[2019-12-05 06:26] LABS: ANION GAP 11.8 mmol/L (8-16); CALCIUM 8.5 mg/dL (8.4-10.2); CREATININE, SERUM 1.1 mg/dL (0.57-1.11); POTASSIUM 4.8 mmol/L (3.5-5.1)
[2019-12-05] MEDS: INSULIN REGULAR, HUMAN 100 UNIT/1 ML 3ML VIAL SQ SCH ×4 (07:30→20:09)
[2019-12-05] MEDS: FERROUS SULFATE 325 MG TAB PO SCH ×2 (08:29→16:47)
[2019-12-05] MEDS: METOPROLOL TARTRATE 25 MG TAB PO SCH (08:29)
[2019-12-05] MEDS: MAGNESIUM OXIDE 400 MG TAB PO SCH (08:29)
[2019-12-05] MEDS: CYANOCOBALAMIN INJ 1,000 MCG/ML VIAL IM SCH (08:29)
[2019-12-05] MEDS: BUPROPION HCL 150 MG TABCR PO SCH (08:30)
[2019-12-05] MEDS: SODIUM BICARBONATE 650 MG TAB PO SCH ×2 (08:30→16:47)
[2019-12-05] MEDS: PANTOPRAZOLE SOD 40 MG TABEC PO SCH (08:30)
--- NOTE | 2019-12-05 09:50 | Diagnostic Imaging Report ---
Discussed procedural request with Dr. Collins 12/05/2019 at 0915AM. In brief, pt with provided history of breast cancer w/ possible osseous metastatic disease now with episodes of rectal bleeding and presumed colon stricture following unsuccessful colonoscopy. Recent CT abdomen/pelvis of 12/04/2019 demonstrates rectal wall thickening and oral contrast opacification of the colon without focal stricture or obstruction. The patient is COVID+ at this time and asymptomatic. As this is not an urgent/emergent procedure and unlikely to add further significant information that would change clinical management due to the adequate CT A/P performed one day prior, we will defer the procedure at this time. If clinically necessary at a time when the patient is no longer isolation status, please feel free to re-consult IR. Pia Akers MD Signed by: Pia Akers MD on 12/05/2019 9:47 AM
--- NOTE | 2019-12-05 10:16 | NUR ---
IM- Progress notes O/N see below ROS; no f/c/s/N/V/D/DARDEN/cp/skin rash/confusion/focal limb weakness v/s; revd PE tired appearing anicteric ns1s2 mod bs; soft nt nd no e/t skin dry flat affect a*ox3; rene meds/labs revd A/P: BARBARA- ivf Moderate anemia- check anemia panel; Metabolic acidosis- bicarbs DM2- hab1c/lipids MORALES- check echo and consult cards; check COVID19 Prop; scd dispo: Pt consult; get echo. - Hba1c/LDL 6.3/36; Low B12 - start supplement; Continue IVF and bicarbs; check renal U/S. check H/H and renal fn. 8-1 Mild right hydronephrosis; renal fn improving; scope could not be advanced in endoscopy- plan pending; worsening anemia, Hb 7, give [address] needed 8-2 CT shows metastatic disease findings of the mesentery/peritoneum. LAD; Rectal wall thickening; 8-3 renal fn continues to improve; Pt denies hx of cancer; colonic polyps removed in past pt notes were benign, about 10 yrs ago. Neftali Grullon MD, PhD.
[2019-12-05] MEDS ORDERED: PIPER-TAZ 3.375 GM 50 ML ONE (14:01)
--- NOTE | 2019-12-05 16:30 | NUR ---
his is a 69-year-old female, history of hypertension, diabetes mellitus, anemia, anxiety, depression, hyperlipidemia, comes into the emergency room with shortness of breath and fatigue. The patient was seen by her primary care physician. She was diagnosed with COVID-19. ROS: NEGATIVE UNLESS OTHERWISE DOCUMENTED PHYSICAL EXAMINATION: GENERAL: She is currently alert, oriented. VITAL SIGNS: Stable, currently afebrile. HEENT: She is not icteric. NECK: Supple. CHEST: Clear. HEART: S1, S2. ABDOMEN: Soft. Bowel sounds present. No tenderness. EXTREMITIES: No edema. SKIN: No rash. IMPRESSION & PLAN: 1. Positive COVID-19, asymptomatic. isolation for 10 days. 2. Anemia with abnormal workup concerned about malignancy. Can proceed as ordered. surgery in AM
--- NOTE | 2019-12-05 18:28 | NUR ---
patient doing well today. pt wishes to speak with Dr. Collins again before signing consents for surgery. aware of NPO at midnight.
--- NOTE | 2019-12-05 21:00 | NUR ---
Patient refused bed alarm. Sign consent for procedure tomorrow. Patient is aware of NPO after midnight. Patient will have Hibiclens bath tonight.
[2019-12-05] MEDS: SIMVASTATIN 20 MG TAB PO SCH (21:05)
[2019-12-06] VITALS (8 sets, daily range): BP systolic 133–146; BP diastolic 69–80
[2019-12-06] MEDS: INSULIN REGULAR, HUMAN 100 UNIT/1 ML 3ML VIAL SQ SCH ×4 (07:30→21:00)
[2019-12-06] MEDS: BUPROPION HCL 150 MG TABCR PO SCH (09:00)
[2019-12-06] MEDS: SODIUM BICARBONATE 650 MG TAB PO SCH ×2 (09:00→16:35)
[2019-12-06] MEDS: METOPROLOL TARTRATE 25 MG TAB PO SCH (09:00)
[2019-12-06] MEDS: FERROUS SULFATE 325 MG TAB PO SCH ×2 (09:00→16:35)
[2019-12-06] MEDS: PANTOPRAZOLE SOD 40 MG TABEC PO SCH (09:00)
[2019-12-06] MEDS: CYANOCOBALAMIN INJ 1,000 MCG/ML VIAL IM SCH (09:00)
[2019-12-06] MEDS: MAGNESIUM OXIDE 400 MG TAB PO SCH (09:00)
--- NOTE | 2019-12-06 11:07 | NUR ---
IM- Progress notes O/N see below ROS; no f/c/s/N/V/D/DARDEN/cp/skin rash/confusion/focal limb weakness v/s; revd PE tired appearing anicteric ns1s2 mod bs; soft nt nd no e/t skin dry flat affect a*ox3; rene meds/labs revd A/P: BARBARA- ivf Moderate anemia- check anemia panel; Metabolic acidosis- bicarbs DM2- hab1c/lipids MORALES- check echo and consult cards; check COVID19 Prop; scd dispo: Pt consult; get echo. - Hba1c/LDL 6.3/36; Low B12 - start supplement; Continue IVF and bicarbs; check renal U/S. check H/H and renal fn. 8-1 Mild right hydronephrosis; renal fn improving; scope could not be advanced in endoscopy- plan pending; worsening anemia, Hb 7, give [address] needed 8-2 CT shows metastatic disease findings of the mesentery/peritoneum. LAD; Rectal wall thickening; 8-3 renal fn continues to improve; Pt denies hx of cancer; colonic polyps removed in past pt notes were benign, about 10 yrs ago. 8-4 w-up outpt with GI and surgery; Unable to get barium study done due to COVID status; Renal fn improving- continue fluids at home; LN bx today; Pt does have hx lytic bone lesions at [facility]; d/w and . Neftali Grullon MD, PhD.
[2019-12-06] MEDS ORDERED: BUPIVACAINE HCL 0.5% INJ 30 ML VIAL INJ ONE (13:29)
[2019-12-06] MEDS ORDERED: SUGAMMADEX SODIUM 200 MG/2 ML VIAL IV ONE (13:54)
[2019-12-06] MEDS ORDERED: ONDANSETRON HCL INJ 2MG/ML 2ML 2 MG/ML VIAL IV PRN (14:00)
--- NOTE | 2019-12-06 14:40 | NUR ---
PATIENT RETURNED FROM OR. 2 SITES TO ABDOMEN AND DRESSING TO LEFT GROIN. PT DENIES ANY PAIN. ALL BELONGINGS WITHIN REACH. WCTM
--- NOTE | 2019-12-06 15:08 | Operative Report ---
DATE OF PROCEDURE: 12/06/2019 SURGEON: Walter Collins MD PREOPERATIVE DIAGNOSES: Rectal stricture, ascites; inguinal lymphadenopathy. 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 PROCEDURES: Diagnostic laparoscopy, laparoscopic biopsy of peritoneal nodule, excision of left inguinal lymph node. FINANCIAL SYSTEMS ANALYST: None. ANESTHESIA: General endotracheal. INDICATIONS AND FINDINGS: The patient is a 69-year-old female, who admitted to the hospital with anemia, rectal bleeding, found to have a stricture in the colon. She has history of breast cancer with findings suggestive of possible carcinomatosis as well as lymphadenopathy. At Surgery, there was about 1 L of clear ascites in the peritoneal cavity, which was drained. There were multiple tumor implants covering all the peritoneal surfaces that could be seen and infiltrating into the omentum. A biopsy was taken from the falciform ligament. There were enlarged lymph nodes in the groin and one of the lymph nodes was excised also. TECHNIQUE: After adequate general endotracheal anesthesia, the patient is in supine position, the abdomen and groin area was prepped and draped in a sterile fashion with ChloraPrep solution. Left side of the abdomen away from the area of the previous surgery. Skin and subcutaneous tissues were infiltrated with 0.5% Marcaine, transverse incision was made. Abdominal wall was elevated and Veress needle was introduced. Pneumoperitoneum was then created. A 5 mm trocar and cannula was then passed through this wound. Laparoscopic camera was introduced. Initial laparoscopy revealed ascites as well as tumor implants on all the peritoneal surfaces could be seen and tumor infiltrating into the omentum. A second 5 mm trocar and cannula were placed in the left upper quadrant using a grasper. Portion of the tumor implant was excised from the falciform ligament and removed for biopsy. Hemostasis was achieved with electrocautery. Examination revealed tumor implants on the sigmoid colon as well infiltrating into the omentum, which was adherent to the midline. The small bowel was not easily seen. The bowel that was seen, however, was not dilated. The instruments and cannulas were then removed. Pneumoperitoneum was evacuated. Wounds were closed with perez. Incision was then made in the left inguinal area, carried down through subcutaneous tissue. Enlarged hard lymph node was identified, this was excised using electrocautery. Hemostasis was achieved with electrocautery, this node was about 1.8 cm in diameter. The wound was infiltrated with 0.5% Marcaine, it was then closed with 3-0 Vicryl subcutaneous tissue and perez for the skin. Sterile dressing was applied to each wound. The patient tolerated the procedure well. Estimated blood loss for entire procedure was 10 mL. There were no complications. All counts were correct and the patient was taken to the recovery room in satisfactory condition. MD MEI Gonzalez/FRANCES /[id number]
[2019-12-06] MEDS ORDERED: GLYCOPYRROLATE INJ 0.2 MG/ML VIAL ONE (15:10)
[2019-12-06] MEDS ORDERED: LIDOCAINE HCL 2% LOCAL INJ 5 ML SDV VIAL INJ ONE (15:10)
[2019-12-06] MEDS ORDERED: PROPOFOL IV EMULSION 10 MG/ML 20 ML VIAL ONE (15:10)
[2019-12-06] MEDS ORDERED: DESFLURANE 240 ML BTL INH ONE (15:10)
[2019-12-06] MEDS ORDERED: METOCLOPRAMIDE HCL 10 MG/2ML VIAL ONE (15:10)
[2019-12-06] MEDS ORDERED: ONDANSETRON HCL INJ 2MG/ML 2ML 2 MG/ML VIAL ONE (15:10)
[2019-12-06] MEDS ORDERED: ROCURONIUM BROMIDE 10 MG/ML 5ML VIAL IV ONE (15:10)
[2019-12-06] MEDS: SODIUM CHLORIDE 0.9% 1000ML 1,000 ML IV SCH (16:46)
[2019-12-06] MEDS: HYDROCODONE/APAP 5MG-325MG TAB PO PRN (17:00)
--- NOTE | 2019-12-06 19:35 | Progress Note ---
DATE: SUBJECTIVE: Ms. Ko is doing well. She has the surgery today. PHYSICAL EXAMINATION: GENERAL: She is currently alert. VITAL SIGNS: Stable, afebrile. HEENT: She is not icteric. NECK: Supple. CHEST: Clear. ABDOMEN: Soft. IMPRESSION: Colon mass, going for surgery. Coronavirus disease-19 is just observed. We will follow. MD SAHRA Perez/FRANCES /[id number]
[2019-12-06] MEDS: SIMVASTATIN 20 MG TAB PO SCH (21:23)
[2019-12-07] VITALS: BP 138/59
[2019-12-07 03:48] VITALS: BP 156/64
[2019-12-07] MEDS: SODIUM CHLORIDE 0.9% 1000ML 1,000 ML IV SCH ×2 (04:30)
--- NOTE | 2019-12-07 06:44 | NUR ---
D/C summary Principal Dx: BARBARA- ivf Moderate anemia- check anemia panel; Metabolic acidosis- bicarbs COlonic mass Mesenteric/Peritoneum LAD- s/p Bx Rectal wall thickening SEcondary Dx: DM2- hab1c/lipids MORALES- check echo and consult cards; check COVID19 Prop; scd dispo: Pt consult; get echo. - Hba1c/LDL 6.3/36; Low B12 - start supplement; Continue IVF and bicarbs; check renal U/S. check H/H and renal fn. 8-1 Mild right hydronephrosis; renal fn improving; scope could not be advanced in endoscopy- plan pending; worsening anemia, Hb 7, give [address] needed 8-2 CT shows metastatic disease findings of the mesentery/peritoneum. LAD; Rectal wall thickening; 8-3 renal fn continues to improve; Pt denies hx of cancer; colonic polyps removed in past pt notes were benign, about 10 yrs ago. 8-4 w-up outpt with GI and surgery; Unable to get barium study done due to COVID status; Renal fn improving- continue fluids at home; LN bx today; Pt does have hx lytic bone lesions at [facility]; d/w and . 8-5 f/u procedure; check labs d/c home stable f/u pcp 2 days, 1 week d/c>35mins Neftali Grullon MD, PhD.
[2019-12-07 07:20] LABS: BASOPHILS % 0.2 % (0.0-1.0); EOSINOPHILS # (AUTO) 0.1 (0.0-0.4); EOSINOPHILS % 1.6 % (0.0-6.0); HEMATOCRIT 28.6 % (34.2-44.1); HEMOGLOBIN 8.8 g/dL (12.0-16.0); LYMPHOCYTES # (AUTO) 1.8 (1.0-3.2); LYMPHOCYTES % 35.4 % (18.0-39.1); MEAN CORPUSCULAR HEMOGLOBIN 29.9 pg (28-32); MEAN CORPUSCULAR HGB CONC 30.8 g/dL (31-35); MEAN CORPUSCULAR VOLUME 97.3 fL (81-99); MONOCYTES # (AUTO) 0.2 (0.2-0.8); MONOCYTES % 3.4 % (4.4-11.3); NEUTROPHILS # (AUTO) 2.9 (2.1-6.9); NEUTROPHILS % 57.8 % (38.7-80.0); PLATELET COUNT 113 x10e3/uL (140-360); RED BLOOD COUNT 2.94 x10e6/uL (3.6-5.1); RED CELL DISTRIBUTION WIDTH 14.9 % (11.7-14.4)
[2019-12-07] MEDS: INSULIN REGULAR, HUMAN 100 UNIT/1 ML 3ML VIAL SQ SCH ×3 (07:30→16:43)
[2019-12-07 07:34] LABS: ANION GAP 11.6 mmol/L (8-16); CREATININE, SERUM 0.97 mg/dL (0.57-1.11); POTASSIUM 4.6 mmol/L (3.5-5.1)
[2019-12-07 08:22] VITALS: BP 160/67
[2019-12-07] MEDS: CYANOCOBALAMIN INJ 1,000 MCG/ML VIAL IM SCH (08:32)
[2019-12-07] MEDS: FERROUS SULFATE 325 MG TAB PO SCH ×2 (08:32→16:43)
[2019-12-07] MEDS: METOPROLOL TARTRATE 25 MG TAB PO SCH (08:32)
[2019-12-07] MEDS: MAGNESIUM OXIDE 400 MG TAB PO SCH (08:33)
[2019-12-07] MEDS: PANTOPRAZOLE SOD 40 MG TABEC PO SCH (08:33)
[2019-12-07] MEDS: SODIUM BICARBONATE 650 MG TAB PO SCH ×2 (08:33→16:43)
[2019-12-07] MEDS: BUPROPION HCL 150 MG TABCR PO SCH (08:33)
[2019-12-07] MEDS: HYDROCODONE/APAP 5MG-325MG TAB PO PRN ×2 (08:46→16:50)
[2019-12-07 09:29] VITALS: BP 160/67
--- NOTE | 2019-12-07 10:34 | NUR ---
Home O2 evaluation was done and pt does not meet criteria for oxygen. Oxygen saturation on exertion is 96%.
[2019-12-07 12:38] VITALS: BP 139/67
[2019-12-07 16:08] VITALS: BP 134/64
--- NOTE | 2019-12-07 16:09 | Progress Note ---
DATE: SUBJECTIVE: Ms. Ko is doing well. There are no new complaints. She is going to go home. There is no shortness of breath or cough. PHYSICAL EXAMINATION: GENERAL: She is currently alert, oriented. VITAL SIGNS: Stable, currently afebrile. HEENT: She is not icteric. NECK: Supple. CHEST: Clear. HEART: S1, S2. ABDOMEN: Soft. Bowel sounds present. No tenderness. EXTREMITIES: No edema. IMPRESSION: Colon mass, status post surgery. Coronavirus disease-19. Told the patient she can go off isolation in 10 days since diagnosis treatment. To see me back in four weeks. MD SAHRA Perez/FRANCES /[id number]
--- NOTE | 2019-12-07 18:15 | NUR ---
Discussed all discharge instructions with patient at this time. Pt verbalized understanding of all discharge instructions and follow up appointments. Denies any pain at this time. Breaths are even and unlabored on room air at this time.
--- NOTE | 2019-12-07 19:25 | NUR ---
Patient received sitting up in bed. AAO x 3. Patient had no complaints of pain. Respirations even and non-labored. Fall precautions implemented. Patient instructed to call for assistance when needed. Call light within reach.
--- NOTE | 2019-12-07 20:28 | NUR ---
Patient transported to cab via W/C. Patient in stable condition. Vital signs WNL.
--- NOTE | 2019-12-08 09:47 | Consultation ---
DATE OF CONSULTATION: 12/04/2019 HISTORY OF PRESENT ILLNESS: Ms. Ko is a 69-year-old female, who was referred to me for peritoneal metastases. The patient is COVID-19 positive. Subsequently all the interviews were done on FaceTime, her cell number being [phone]. The patient was not examined because of COVID-19 positivity and my age. I disclosed this very openly to her and she understood. The patient also had a colonoscopy by Dr. Charlie Olivares, which showed nodularity in the rectum. The biopsies have been done, however, is also not available at this time for review. HISTORY OF PAST ILLNESS: History of having had breast cancer, which was treated 6 years back. The patient has not kept up with the medical oncologist for many years now. Does not wish to go back. SOCIAL HISTORY: Noncontributory. FAMILY HISTORY: Noncontributory. ALLERGIES: REPORTED NONE. MEDICATIONS: At this time. 1. Tylenol. 2. Bupropion. 3. Metoprolol. 4. Carafate. 5. Cyanocobalamin. 6. Ferrous sulfate. 7. Protonix. 8. Zolpidem. 9. Insulin. 10. Simvastatin. 11. Ondansetron. 12. Magnesium oxide. 13. Sodium bicarbonate. 14. Meclizine. REVIEW OF SYSTEMS: HEENT: Normal. CARDIAC: History of hypertension. RESPIRATORY: Normal. GI: A rectal mass. Biopsies pending. : History of chronic renal failure. MUSCULOSKELETAL: Normal. SKIN AND BREAST: History of breast cancer in the past 6 years. PHYSICAL EXAMINATION: Could not be done as she is COVID-19 positive. Most of the interview was done on the video. LABORATORY DATA: Shows a sodium of 138, potassium 4.3, chloride 108, CO2 20, BUN 22, and creatinine 1.37, glucose 90, hemoglobin 9, hematocrit of 28.3, white count of 5450, platelets of 120,000. IMPRESSION: 1. Anemia of chronic disease. 2. Iron deficiency by indices. However, ferritin is more than 2000. 3. Chronic renal failure. 4. Hypoalbuminemia. 5. Hyperglobulinemia. 6. COVID-19 positive. 7. Right hydronephrosis by the CAT scan. 8. History of hypertension. 9. History of diabetes mellitus. 10. History of anxiety disorder. PLAN: Since suggestion of 8th biopsy results of the rectal lesion. Dr. Walter Collins after having seen the CAT scan, which showed ascites, omental fat metastases, possible osseous metastases and left adrenal metastases with history of breast cancer, had done a laparoscopy according to my personal communication with him. The patient has intraabdominal metastases. The CEA is 161. I am still awaiting pathology. I have spoken to her again every day including today prior to discharge. She is going to have a repeat COVID-19 by . , own primary care physician. If this is negative, I will give her an appointment as she wants to stay with me rather than her other medical oncologist, which she has refused to disclose on many occasions. I did tell her that I will await the pathology and it is only after I get the pathology, I will call her to get an appointment so that a thorough investigation of the extent of the disease could be obtained by doing a PET scan. The patient has shown great understanding. Most of the conversation has been done along with the nursing staff every day. Thank you very much for allowing me to participate in the management of this patient. MD ELIZABETH Brown/FRANCES /[id number] cc: MD Charlie Ball MD David W Gelber, MD Zaher Shebib, MD James Cleve
== END 2019-12-07 20:15 | disposition home or self-care (01) | DRG 356 ==
LOC: ER 15:49 → ERHOLD 16:56 → MED/SURG 17:44 → IMCU 12-02 06:06 → OBSVTOIN 12-03 09:26
PROVIDERS: ADMIT Internal Medicine; ATTEND Internal Medicine
PROC: 0DBP8ZX Excision of Rectum, Via Natural or Artificial Opening Endoscopic, Diagnostic (ICD-10-PCS; 2019-12-02)
PROC: 30233N1 Transfusion of Nonautologous Red Blood Cells into Peripheral Vein, Percutaneous Approach (ICD-10-PCS; 2019-12-03)
PROC: 07BC4ZX Excision of Pelvis Lymphatic, Percutaneous Endoscopic Approach, Diagnostic (ICD-10-PCS; 2019-12-06)
PROC: 0JBB3ZX Excision of Perineum Subcutaneous Tissue and Fascia, Percutaneous Approach, Diagnostic (ICD-10-PCS; 2019-12-06)
PROC: 07BJ4ZX Excision of Left Inguinal Lymphatic, Percutaneous Endoscopic Approach, Diagnostic (ICD-10-PCS; principal; 2019-12-06 12:30)
DX: C78.6 Secondary malignant neoplasm of retroperitoneum and peritoneum (principal); U07.1 COVID-19; C78.5 Secondary malignant neoplasm of large intestine and rectum; N17.9 Acute kidney failure, unspecified; E87.2 Acidosis; N13.30 Unspecified hydronephrosis; C79.72 Secondary malignant neoplasm of left adrenal gland; R18.0 Malignant ascites; D63.8 Anemia in other chronic diseases classified elsewhere; R77.1 Abnormality of globulin; D50.9 Iron deficiency anemia, unspecified; E88.09 Other disorders of plasma-protein metabolism, not elsewhere classified; E11.9 Type 2 diabetes mellitus without complications; F41.9 Anxiety disorder, unspecified; Z85.3 Personal history of malignant neoplasm of breast; I12.9 Hypertensive chronic kidney disease with stage 1 through stage 4 chronic kidney disease, or unspecified chronic kidney disease; N18.9 Chronic kidney disease, unspecified; F32.9 Major depressive disorder, single episode, unspecified; K62.4 Stenosis of anus and rectum; I50.9 Heart failure, unspecified; E11.22 Type 2 diabetes mellitus with diabetic chronic kidney disease; D50.0 Iron deficiency anemia secondary to blood loss (chronic)
CPT/HCPCS: 36415; 45380; 71045; 74176; 74470; 76770; 80048; 80053; 80061; 82378; 82550; 82553; 82607; 82728; 82746; 82948; 83036; 83540; 83880; 84466; 84484; 85014; 85018; 85025; 85045; 85610; 85730; 86850; 86900; 86920; 88304; 88305; 88342; 93005; 93306; 99284; G0378; J1817; J2001; J2405; J2543; J3420; J7030; J7050; P9016; Q0162; U0002

== ENCOUNTER 2019-12-16 19:37 | Inpatient (IN) | payer MEDICARE ==
[~2019-12-16] VITALS: Ht 152.4 cm; Wt 75.9 kg
[~2019-12-16 19:37] MED LIST: ALBUTEROL SULFATE INH; BUPROPION XL150 MG PO; CRESTOR10 MG PO; FERROUS SULFAT325 MG PO; LISINOPRIL10 MG PO; MAGNESIUM OXID400 MG PO; METFORMIN HCL500 MG PO; METOPROLOL TART25 MG PO; PANTOPRAZOLE SO40 MG PO; SUCRALFATE1 GM PO; ZOFRAN4 MG PO
[2019-12-16] MEDS ORDERED: ONDANSETRON HCL INJ 2MG/ML 2ML 2 MG/ML VIAL IV PRN (20:00)
--- NOTE | 2019-12-16 20:00 | Emergency Department Note ---
History of Present Illnes History of Present Illness Chief Complaint: COVID PUI History of Present Illness This is a 69 year old female Chief Complaint Comment pt brought in by [facility] for c/o shortness of breath, pt states that she was diagnosed COVID positive today, pt scheduled to have portacath placed on Thursday and start chemo for colon cancer, pt also states that she started having "black" vomitus and bowel last night. Historian: Patient Arrival Mode: [facility] Smoke Room Operator Required: No Onset (how long ago): day(s) (1) Location: lungs Quality: SoB Radiation: Reports non-radiation Severity: mild Onset quality: gradual Duration (how long): day(s) (1) Timing of current episode: constant Progression: unchanged Chronicity: new Context: Reports recent illness (COVID) Relieving factors: none Exacerbating factors: none Associated symptoms: Reports other (Vomiting) Treatments prior to arrival: none Past Medical/Family History Physician Review I have reviewed the patient's past medical and family history. Any updates have been documented here. Past Medical History Recent Fever: No Clinical Suspicion of Infectio: No New/Unexplained Change in Ment: No Past Medical History: Hypertension, Diabetes, Cancer, Anemia, Hyperlipedemia Other Medical History: colon cancer Past Surgical History: Hysterectomy Other Surgery: hemorrhoidectomy, cholecystectomy Social History Physically hurt or threatened: No Other Last Tetanus: OOD Review of Systems Review of Systems Constitutional: Reports no symptoms EENTM: Reports no symptoms Cardiovascular: Reports no symptoms Respiratory: Reports as per HPI, Reports cough, Reports dyspnea Gastrointestinal: Reports as per HPI, Reports nausea, Reports vomiting Genitourinary: Reports no symptoms Musculoskeletal: Reports no symptoms Integumentary: Reports no symptoms Neurological: Reports no symptoms Psychological: Reports no symptoms Endocrine: Reports no symptoms Hematological/Lymphatic: Reports no symptoms Physical Exam Related Data Allergies: Coded Allergies: No Known Allergies (Unverified , 08/25/18) Triage Vital Signs Vital Signs Date Time Temp Pulse Resp B/P (MAP) Pulse Ox O2 Delivery O2 Flow Rate FiO2 12/16/19 19:47 98.4 84 18 108/66 97 Vital signs reviewed: Yes Physical Exam CONSTITUTIONAL Constitutional: Present well-developed, Present well-nourished HENT HENT: Present normocephalic, Present atraumatic, Present oropharynx clear/moist, Present nose normal HENT L/R: Present left ext ear normal, Present right ext ear normal EYES Eyes: Reports PERRL, Reports conjunctivae normal NECK Neck: Present ROM normal PULMONARY Pulmonary: Present effort normal, Present breath sounds normal CARDIOVASCULAR Cardiovascular: Present regular rhythm, Present heart sounds normal, Present capillary refill normal, Present normal rate GASTROINTESTINAL Abdominal: Present soft, Present nontender, Present bowel sounds normal GENITOURINARY Genitourinary: Present exam deferred SKIN Skin: Present warm, Present dry MUSCULOSKELETAL Musculoskeletal: Present ROM normal NEUROLOGICAL Neurological: Present alert, Present oriented x 3, Present no gross motor or sensory deficits PSYCHOLOGICAL Psychological: Present mood/affect normal, Present judgement normal Assessment & Plan Medical Decision Making MDM 69-year-old female who presents with shortness of breath after being diagnosed with rotavirus. Initial exam shows an overall well-appearing female in no acute distress, vital signs stable, within normal limits. Workup shows acute kidney injury with creatinine of 2 which is up from her baseline. Additionally she has a urinary tract infection in this treated with Rocephin. CT scan does show multifocal pneumonia which is improving likely secondary to chronic virus. There is discussed with Dr. Danielle who has agreed to admit for acute kidney injury with urinary tract infection. Patient is appropriate for transfer to floor. Reassessment Reassessment time: 00:21 Reassessment Well appearing NAD Assessment & Plan Final Impression: (1) Acute kidney injury (2) UTI (urinary tract infection) Depart Disposition: ADMITTED Last Vital Signs Date Time Temp Pulse Resp B/P (MAP) Pulse Ox O2 Delivery O2 Flow Rate FiO2 12/16/19 19:47 98.4 84 18 108/66 97 Home Meds Reported Medications [Albuterol Sulfate] No Conflict Check, 90 MCG INH PRN 11/30/19 Magnesium Oxide (MAGNESIUM OXIDE) 400 Mg Tablet, 200 MG PO DAILY, TAB 11/30/19 Bupropion Hcl (BUPROPION XL) 150 Mg Tab.er.24h, 150 MG PO DAILY 11/30/19 Metoprolol Tartrate (METOPROLOL TARTRATE) 25 Mg Tablet, 25 MG PO DAILY, TAB 11/30/19 Pantoprazole Sodium* (PROTONIX) 40 Mg Tablet.dr, 40 MG PO DAILY, TAB 11/30/19 Ondansetron Hcl* (ZOFRAN*) 4 Mg Tablet, 4 MG PO PRN PRN for NAUSEA 11/30/19 Sucralfate (SUCRALFATE) 1 Gm Tablet, 1 GM PO QID PRN for MILD PAIN (1-3), TAB 11/30/19 Ferrous Sulfate (FERROUS SULFATE) 325 Mg Tablet, 325 MG PO BID WITH MEALS 11/30/19 Rosuvastatin Calcium (CRESTOR) 10 Mg Tab, 20 MG PO DAILY THERAPEUTICALLY SUBSTITUTED WITH SIMVASTATIN 40MG 11/30/19 Metformin Hcl (METFORMIN HCL) 500 Mg Tablet, 1000 MG PO DAILY, #60 TAB 11/30/19 JERROD ABDI MD Dec 16, 2019 20:00
[2019-12-16 20:38] LABS: BASOPHILS % 0.5 % (0.0-1.0); EOSINOPHILS # (AUTO) 0.3 (0.0-0.4); EOSINOPHILS % 2.9 % (0.0-6.0); HEMOGLOBIN 8.9 g/dL (12.0-16.0); LYMPHOCYTES # (AUTO) 3.3 (1.0-3.2); MEAN CORPUSCULAR HEMOGLOBIN 29.3 pg (28-32); MEAN CORPUSCULAR HGB CONC 30.7 g/dL (31-35); MEAN CORPUSCULAR VOLUME 95.4 fL (81-99); MONOCYTES # (AUTO) 0.5 (0.2-0.8); NEUTROPHILS # (AUTO) 4.6 (2.1-6.9); NEUTROPHILS % 52.2 % (38.7-80.0); PLATELET COUNT 219 x10e3/uL (140-360); RED BLOOD COUNT 3.04 x10e6/uL (3.6-5.1); RED CELL DISTRIBUTION WIDTH 14.9 % (11.7-14.4)
[2019-12-16 21:01] LABS: ALBUMIN 3.2 g/dL (3.5-5.0); ALBUMIN/GLOBULIN RATIO 0.8 (0.8-2.0); ANION GAP 17.9 mmol/L (8-16); CALCIUM 9.2 mg/dL (8.4-10.2); CREATININE, SERUM 2.11 mg/dL (0.57-1.11); POTASSIUM 4.9 mmol/L (3.5-5.1)
--- OUTSIDE RECORDS SUMMARY | 2019-12-16 21:26 | XMS REPORT | Continuity of Care Document ---
Author Author [facility] t Organization [facility] Address [address] [place] [address] Phone Unavailable Care Team Providers Care Floor Finisher Helper Name Role Phone NONSTAFF PCP Unavailable EWA MOE Attphys Unavailable MISAEL, P GIN Attphys Unavailable MANUEL, S AMBICA Attphys Unavailable EWA MOE Admphys Unavailable Payers Payer Name Policy Type Policy Number Effective Date Expiration Date [facility] [id number] 2019 00:00:00 [facility] [id number] [facility] Medicare A & B [id number] [facility] Problems Condition Name Condition Details Condition Category Status Onset Date Resolution Date Last Treatment Date Treating Clinician Comments Source Anemia Problem Active [facility] Dyspnea on exertion Problem Active [facility] Allergies, Adverse Reactions, Alerts Allergy Name Allergy Type Status Severity Reaction(s) Onset Date Inacti ve Date Treating Clinician Comments Source No Known Allergies DA Active U 2018-04-16 00:00:00 [facility] No Known Allergies DA Active U 2012-11-26 00:00:00 [facility] Social History Social Habit Start Date Stop Date Quantity Comments Source Sex Assigned At 1950 00:00:00 1950 00:00:00 Female [facility] Medications Ordered Medication Name Filled Medication Name Start Date Stop Da te Current Medication? Ordering Clinician Indication Dosage Frequency Signature (SIG) Comments Components Source Albuterol Sulfate Albuterol Sulfate Yes 90 As N eeded [facility] Bupropion Hcl (Bupropion Xl) 150 Mg TAB.ER.24H Bupropi on Hcl (Bupropion Xl) 150 Mg TAB.ER.24H Yes 150 Daily [facility] Ferrous Sulfate Ferrous Sulfate Yes 325 Twice A Day [facility] Magnesium Oxide Magnesium Oxide Yes 200 Daily [facility] Metformin Hcl Metformin Hcl Yes 1000 Daily [facility] Metoprolol Tartrate Metoprolol Tartrate Yes 25 Daily [facility] Ondansetron Hcl (Zofran*) 4 Mg TABLET Ondansetron Hcl (Zofran*) 4 M g TABLET Yes 4 As Needed as needed for Nausea [facility] Pantoprazole Sodium (Protonix) 40 Mg TABLET. Pantopr azole Sodium (Protonix) 40 Mg TABLET. Yes 40 Daily [facility] Rosuvastatin Calcium (Crestor) 10 Mg TAB Rosuvastatin Calcium (Crestor) 10 Mg TAB Yes 20 Daily [facility] Sucralfate Sucralfate Yes 1 Fo ur Times Daily as needed for Mild Pain (1-3) [facility] Lisinopril Lisinopril 2019-12-07 00:00:00 No Alaina ly [facility] Vital Signs Vital Name Observation Time Observation Value Comments Source Body Temperature 2019-12-07 16:08:00 99.3 [degF] [facility] BMI (Body Mass Index) 2019-11-30 18:00:00 34.2 kg/m2 [facility] Weight 2019-11-30 15:18:00 175 [lb_av] [facility] Procedures Procedure Date / Time Performed Performing Clinician Munir e CT of abdomen and pelvis without contrast 2019-12-04 00:00:00 [facility] Ultrasound, renal 2019-12-02 00:00:00 [facility] Plan of Care Planned Activity Planned Date Details Comments Source Instructions COVID-19: 07/18/2019 [facility] Instructions Post Operative Pain [facility] Encounters Start Date/Time End Date/Time Encounter Type Admission Type [facility] Care Department Encounter ID Source 2018-12-20 14:31:00 2018-12-20 16:40:00 Departed Emergency Room 1 GIN DOUGLAS [facility] [id number] [facility] 2018-08-25 01:33:00 2018-08-25 06:03:00 Departed Emergency Room 1 BYRON JACKSON [facility] [id number] [facility] Results Test Description Test Time Test Comments Results Result Comments Source Capillary blood glucose measurement by glucometer (mas s/volume) 2019-12-07 15:08:00 Test Item Bedside Glucose (test code = 97880-3) 133 70-120 Meter ID: [id number] ClinicBlood leukocytes automated count (number/volume)2019-12-07 07:10:00* Test Item Value Reference Range Interpretation Comments White Blood Count (test code = 6690-2) 4.94 4.8-10.8 [facility] erythrocytes automated count (number/volume)2019-12-07 07:10:00* Test Item Value Reference Range Interpretation Comments Red Blood Count (test code = 789-8) 2.94 3.6-5.1 [facility] hemoglobin measurement (moles/volume)2019-12-07 07:10:00* Test Item Value Reference Range Interpretation Comments Hemoglobin (test code = 73382-7) 8.8 12.0-16.0 [facility] Clinic[facility] blood hematocrit (volume fraction)2019-12-07 07:10:00* Test Item Value Reference Range Interpretation Comments Hematocrit (test code = 4544-3) 28.6 34.2-44.1 [facility] Clinic[facility] erythrocyte mean corpuscular trkjit7264-93-67 07:10:00* Test Item Value Reference Range Interpretation Comments Mean Corpuscular Volume (test code = 787-2) 97.3 81-99 [facility] Clinic[facility] erythrocyte mean corpuscular hemoglobin (mass per erythrocyte)2019-12-07 07:10:00* Test Item Value Reference Range Interpretation Comments Mean Corpuscular Hemoglobin (test code = 785-6) 29.9 28-32 [facility] ClinicAutom[facility] erythrocyte mean corpuscular hemoglobin concentration measurement (mass/volume)2019-12-07 07:10:00* Test Item Value Reference Range Interpretation Comments Mean Corpuscular Hemoglobin Concent (test code = 786-4) 30.8 31-35 [facility] ClinicRDW UjdCn-Rja7692-07-05 07:10:00* Test Item Value Reference Range Interpretation Comments Red Cell Distribution Width (test code = 31525-9) 14.9 11.7 -14.4 [facility] Clinic[facility] blood platelet count (count/volume)2019-12-07 07:10:00* Test Item Value Reference Range Interpretation Comments Platelet Count (test code = 777-3) 113 140-360 [facility] ClinicAutmaria parham healthed blood segmented neutrophil count as percentage of total jopuxrycrz7634-27-38 07:10:00* Test Item Value Reference Range Interpretation Comments Neutrophils (%) (Auto) (test code = 90791-8) 57.8 38.7-80.0 [facility] ClinicAutom[facility] blood lymphocyte count as percentage ot total xtujjosgpl6724-33-71 07:10:00* Test Item Value Reference Range Interpretation Comments Lymphocytes (%) (Auto) (test code = 736-9) 35.4 18.0-39.1 [facility] ClinicAutom[facility] blood monocyte count as percentage of total zgmjntxpix1226-47-27 07:10:00* Test Item Value Reference Range Interpretation Comments Monocytes (%) (Auto) (test code = 5905-5) 3.4 4.4-11.3 [facility] ClinicAutom[facility] blood eosinophil count as percentage of total ntxnbktoak2257-99-20 07:10:00* Test Item Value Reference Range Interpretation Comments Eosinophils (%) (Auto) (test code = 713-8) 1.6 0.0-6.0 [facility] ClinicAutom[facility] blood basophil count as percentage of total oifwlicmco1559-52-14 07:10:00* Test Item Value Reference Range Interpretation Comments Basophils (%) (Auto) (test code = 706-2) 0.2 0.0-1.0 [facility] ClinicFluoroscopic procedure less than one hour rtqufgmx0570-34-26 07:10:00* Test Item Value Reference Range Interpretation Comments IM GRANULOCYTES % (test code = IM GRANULOCYTES %) 1.6 0.0- 1.0 [facility] ClinicAutom[facility] blood neutrophil count 2019-12-07 07:10:00* Test Item Value Reference Range Interpretation Comments Neutrophils # (Auto) (test code = 751-8) 2.9 2.1-6.9 [facility] ClinicBlood lymphocytes count (number/volume) 2019-12-07 07:10:00* Test Item Value Reference Range Interpretation Comments Lymphocytes # (Auto) (test code = 57850-0) 1.8 1.0-3.2 [facility] ClinicBl[facility] monocytes automated count (number/volume)2019-12-07 07:10:00* Test Item Value Reference Range Interpretation Comments Monocytes # (Auto) (test code = 742-7) 0.2 0.2-0.8 [facility] ClinicAutomated blood eosinophil count 2019-12-07 07:10:00* Test Item Value Reference Range Interpretation Comments Eosinophils # (Auto) (test code = 711-2) 0.1 0.0-0.4 [facility] ClinicAutomated blood basophil count (count/volume)2019-12-07 07:10:00* Test Item Value Reference Range Interpretation Comments Basophils # (Auto) (test code = 704-7) 0.0 0.0-0.1 [facility] ClinicFluoroscopic procedure less than one hour bzsynzjv0343-08-57 07:10:00* Test Item Value Reference Range Interpretation Comments Absolute Immature Granulocyte (auto (jeff t code = Absolute Immature Granulocyte (auto) 0.08 0-0.1 [facility] sodium [facility] (moles/volume)2019-12-07 07:10:00* Test Item Value Reference Range Interpretation Comments Sodium Level (test code = 2951-2) 139 136-145 [facility] potassium measurement (moles/volume)2019-12-07 07:10:00* Test Item Value Reference Range Interpretation Comments Potassium Level (test code = 2823-3) 4.6 3.5-5.1 [facility] chloride measurement (moles/volume)2019-12-07 07:10:00* Test Item Value Reference Range Interpretation Comments Chloride Level (test code = 2075-0) 108 98-107 [facility] carbon dioxide, total measurement (moles/volume)2019-12-07 07:10:00* Test Item Value Reference Range Interpretation Comments Carbon Dioxide Level (test code = 2028-9) 24 22-29 [facility] anion hac3287-34-43 07:10:00* Test Item Value Reference Range Interpretation Comments Anion Gap (test code = 91967-6) 11.6 8-16 [facility] urea nitrogen measurement (mass/volume)2019-12-07 07:10:00* Test Item Value Reference Range Interpretation Comments Blood Urea Nitrogen (test code = 3094-0) 12 7-26 [facility] creatinine measurement (mass/volume)2019-12-07 07:10:00* Test Item Value Reference Range Interpretation Comments Creatinine (test code = 2160-0) 0.97 0.57-1.11 [facility] urea nitrogen/creatinine mass sujxw2810-14-66 07:10:00* Test Item Value Reference Range Interpretation Comments BUN/Creatinine Ratio (test code = 3097-3) 12 6-25 [facility] ClinicEstimated glomerular filtration rate (GFR) vnaimvgmcygyl1720-23-72 07:10:00* Test Item Value Reference Range Interpretation Comments Estimat Glomerular Filtration Rate (test code = 078357160) 57 >60 Ranges were taken from the National Kidney Disease Education Program and the [facility] [employer] literature.Reference ranges:60 or greater: Homdiw46-66 ( for 3 consecutive months): Chronic kidney disease 15 or less: Kidney failureCHI Baylor University Medical CenterGlucose lbhluuiqtrm9821-62-41 07:10:00* Test Item Value Reference Range Interpretation Comments Glucose Level (test code = THD8980) 99 74-118 [facility] calcium measurement (mass/volume)2019-12-07 07:10:00* Test Item Value Reference Range Interpretation Comments Calcium Level (test code = 28895-2) 8.0 8.4-10.2 [facility] ClinicBARIUM MOSRB7271-81-75 09:38:00 [facility] [address] [address] Patient Name: MINA DIAZ MR #: [id number] : 1950 Age/Sex: 69/F Req #: [id number] Adm Physician: EWA MOE MD Ordered by: DWIGHT COLLINS MD Report #: [id number] Location: [facility] Room/Bed: [place] [address] Procedure: [id number] DX/BARIUM ENEMA Exam Date: 12/05/19 Exam Time: 0900 REPORT STATUS: Signed Discussed procedural reque st with Dr. Collins 12/05/2019 at 0915AM. In brief, pt with provided history of b reast cancer w/ possible osseous metastatic disease now with episodes of recta l bleeding and presumed colon stricture following unsuccessful colonoscopy. Recent CT abdomen/pelvis of 12/04/2019 demonstrates rectal wall thickening and oral contrast opacification of the colon without focal stricture or obstruct ion. The patient is COVID+ at this time and asymptomatic. As this is not an urgent/emergent procedure and unlikely to add further significant information that would change clinical management due to the adequate CT A/P performed on e day prior, we will defer the procedure at this time. If clinically necessary at a time when the patient is no longer isolation status, please feel free to re-consult IR. Berta Rouse MD Signed by: Berta Rouse MD on 12/05/2019 9:47 AM Dictated By: BERTA ROUSE MD 5 Transcribed By: MIR on 12/05/19955 COPY TO: DWIGHT COLLINS MD IR [id number] 09:38:00 [address] [address] Patient Name: MINA DIAZ MR #: [id number] : 1950 Age/Sex: 69/F Req #: [id number] Adm Physician: EWA MOE MD Ordered by: DWIGHT COLLINS MD Report #: [id number] Location: [facility] Room/Bed: [place] [address] Procedure: [id number] DX/IR CONSULT E xam Date: Exam Time: REPORT STATUS: Signed Discussed procedural request with Dr. Tate bernstein 12/05/2019 at 0915AM. In brief, pt with provided history of breast cancer w / possible osseous metastatic disease now with episodes of rectal bleeding and presumed colon stricture following unsuccessful colonoscopy. Recent CT a bdomen/pelvis of 12/04/2019 demonstrates rectal wall thickening and oral contras t opacification of the colon without focal stricture or obstruction. The patient is COVID+ at this time and asymptomatic. As this is not an urgent/ludin gent procedure and unlikely to add further significant information that would change clinical management due to the adequate CT A/P performed one day prior, we will defer the procedure at this time. If clinically necessary at a time w hen the patient is no longer isolation status, please feel free to re-consult IR. Berta Rouse MD Signed by: Berta Rouse MD on 12/05/2019 9:47 AM Dictated By: BERTA ROUSE MD 0956 COPY TO: DWIGHT COLLINS Serum or plasma carcinoembryonic antigen measurement (mass/volume) 2019-12-04 16:15:00* Test Item Value Reference Range Interpretation Comments Carcinoembryonic Antigen (test code = 2039-6) 161.0 0.0-4.7 Nonsmokers <3.9 Smokers <5.6[employer] Electrochemiluminescence Immunoassay(ECLIA)Values obtained with different assay methods or kitscannot be used interchangeably. Results cannot beinterpreted as absolute evidence of the presence orabsence of malignant disease.Performed at: - [facility] [id number] Director: Heriberto Ham MD, Phone: [phone] [facility] CenterCT ABDOMEN/PELVIS [id number] 15:18:00 [address] [address] Patient Name: MINA DIAZ MR #: [id number] : 1950 Age/Sex: 69/F Req #: [id number] Adm Physician: EWA MOE MD Ordered by: LUZ SILVESTRE MD Report #: [id number] Location: [facility] Room/Bed: [place] [address] Procedure: [id number] CT/CT ABDOM EN/PELVIS WO Exam Date: 12/04/19 Exam Time: 1446 REPORT STATUS: Signed EXAM: CT Abdo men and Pelvis WITHOUT contrast INDICATION: Rectal cancer. COMPARISON: Non e. TECHNIQUE: Abdomen and pelvis were scanned utilizing a multidetector helica l scanner from the lung base to the pubic symphysis without administration of IV contrast. Absence of intravenous contrast decreases sensitivity for detecti on of focal lesions and vascular pathology. Coronal and sagittal reformations were obtained. Routine protocol was performed. IV CONTRAST: None ORAL CONTRAST: None COMPLICATIONS: None RADIATION DOSE: Total DLP: 686.32 mGy*cm Estimated effective dose: (DLP x 0.015 x size factor) mSv CTDIvol has been reviewed. It is below the limits set by the Radiation Protocol Committee (RPC). Dose modulation, iterative rec onstruction, and/or weight based adjustment of the mA/kV was utilized to reduc e the radiation dose to as low as reasonably achievable. FINDINGS: LINES and TUBES: None. LOWER THORAX: There is multifocal patchy groundglas s opacities at the bilateral lung bases which may represent developing pneumon ia. HEPATOBILIARY: No focal hepatic lesions. No biliary ductal dilatio n. GALLBLADDER: No radio-opaque stones or sludge. No wall thickening. SPLEEN: No splenomegaly. PANCREAS: No focal masses or ductal dilatation. ADRENALS: Diffuse thickening of the left adrenal gland. The right adrena l gland is normal. KIDNEYS/URETERS: There is nonspecific perinephric fat stranding bilaterally. No hydronephrosis. No cystic or solid mass lesions. No stones. GI TRACT: There is circumferential wall thickening of the rectum, likely related to known rectal cancer. The right colon is not present, likely surgically removed. There is mild gastric wall thickening which may be related to under-distention. No abnormal distention or evidence of bowel obstruction. The appendix is not visualized, likely surgically removed. PELVIC ORGANS /BLADDER: The urinary bladder is decompressed and not well assessed. Pelvic or harvinder are obscured by free fluid in the pelvis. LYMPH NODES: There are multi ple enlarged inguinal lymph nodes measuring up to 1.2 cm. VESSELS: Scattered mild arterial vascular calcifications. PERITONEUM / RETROPERITONEUM: There is small amount of ascites which extends into the paracolic gutters and the p desire. There is soft tissue infiltration of the omental fat. BONES: The e ntire bones are densely sclerotic. No acute fracture. SOFT TISSUES: Unremar kable. IMPRESSION: 1. Circumferential wall thickening of the rectum l ikely related to known history of rectal cancer. 2. Small ascites which ext ends into the paracolic gutters and the pelvis with soft tissue infiltration o f the omental fat. This constellation of findings are suggestive of peritoneal metastasis and malignant ascites. 3. Densely sclerotic bones suggestive of osseous metastasis. 4. Patchy groundglass opacities throughout the bilateral lung bases which may represent developing multifocal pneumonia. 5. Multiple enlarged inguinal lymph nodes may be reactive or metastatic lymph nodes. 6. Left adrenal hyperplasia versus metastasis. Signed by: Woo Nair MD o n 12/04/2019 3:50 PM Dictated By: WOO NAIR MD 1550 Transcribed By: MIR on 12/04/19 155 COPY TO: LUZ SILVESTRE MD RENAL RETROPERITONEAL COMP 2019-12-02 15:50:00 [place] [address] Patient Name: MINA DIAZ MR #: [id number] : 1950 Age/Sex: 69/F Req #: [id number] Adm Physician: EWA MOE MD Ordered by: EWA MOE MD Report #: [id number] Location: [facility] Room/Bed: [place] [address] Procedure: [id number] US/US RENAL RETRO PERITONEAL COMP Exam Date: 12/02/19 Exam Time: 1507 REPORT STATUS: Signed EXAM: Sariah l Ultrasound INDICATION: pamela vs ckd [id number] COMPARI SON: None TECHNIQUE: Transverse and longitudinal images of the kidneys and bl adder were obtained. FINDINGS: Right Kidney: Length: 10.4 cm Appearance: Normal echogenicity. Collecting system: Mild hydronephrosis Stones: None Cyst/Mass: None Left Kidney: Length: 10.8 cm Appeara nce: Normal echogenicity. Collecting system: No hydronephrosis Stones: Non e Cyst/Mass: None Bladder: No mass or calculi. Bilateral ureteral jets visualized. Prevoid volume estimate of 82 cc. IMPRESSION: Mild right h ydronephrosis. Signed by: Berta Rouse MD on 12/02/2019 3:52 PM Dictat ed By: BERTA ROUSE MD 51 Transcribed By: MIR on 12/02/191551 COPY TO: EWA MOE MD Automated reticulocyte count as percentage of total zcoogwkchmlg0356-88-07 04:35:00* Test Item Value Reference Range Interpretation Comments Percent Reticulocyte Count (test code = 44586-2) 1.6 0.8-2 .2 [facility] ClinicFluoroscopic procedure less than one hour fnihkluj7008-23-56 04:35:00* Test Item Value Reference Range Interpretation Comments Hemoglobin A1c Percent (test code = Hemoglobin A1c Percent) 6.3 4.0-7.0 [facility] iron measurement (mass/volume)2019-12-01 04:35:00* Test Item Value Reference Range Interpretation Comments Iron Level (test code = 2498-4) 87 50-170 [facility] iron binding capacity measurement (mass/volume)2019-12-01 04:35:00* Test Item Value Reference Range Interpretation Comments Total Iron Binding Capacity (test code = 2500-7) 291 261-4 78 [facility] iron saturation measurement (mass fraction)2019-12-01 04:35:00* Test Item Value Reference Range Interpretation Comments Percent Iron Saturation (test code = 2502-3) 30 15-50 [facility] plasma transferrin measurement (mass/volume)2019-12-01 04:35:00* Test Item Value Reference Range Interpretation Comments Transferrin (test code = 3034-6) 208 180-382 [facility] plasma ferritin measurement (mass/volume)2019-12-01 04:35:00* Test Item Value Reference Range Interpretation Comments Ferritin (test code = 2276-4) > 2000.00 4.63-204.00 [facility] total bilirubin measurement (mass/volume)2019-12-01 04:35:00* Test Item Value Reference Range Interpretation Comments Total Bilirubin (test code = 1975-2) 0.3 0.2-1.2 [facility] ClinicFluor[facility] procedure less than one hour valwgnrp9956-06-43 04:35:00* Test Item Value Reference Range Interpretation Comments Aspartate Amino Transf (AST/SGOT) (test code = Aspartate Amino Transf (AST/SGOT)) 26 5-34 [facility] plasma alanine aminotransferase measurement (enzymatic activity/volume)2019-12-01 04:35:00* Test Item Value Reference Range Interpretation Comments Alanine Aminotransferase (ALT/SGPT) (test code = 1742-6) 14 0-55 [facility] protein measurement (mass/volume)2019-12-01 04:35:00* Test Item Value Reference Range Interpretation Comments Total Protein (test code = 2885-2) 6.5 6.5-8.1 [facility] albumin measurement (mass/volume)2019-12-01 04:35:00* Test Item Value Reference Range Interpretation Comments Albumin (test code = 1751-7) 2.9 3.5-5.0 [facility] Clinic[facility] globulin measurement (mass/volume) 2019-12-01 04:35:00* Test Item Value Reference Range Interpretation Comments Globulin (test code = 59890-0) 3.6 2.3-3.5 [facility] albumin/globulin mass ogskv7201-87-74 04:35:00* Test Item Value Reference Range Interpretation Comments Albumin/Globulin Ratio (test code = 1759-0) 0.8 0.8-2.0 [facility] alkaline phosphatase measurement (enzymatic activity/volume)2019-12-01 04:35:00* Test Item Value Reference Range Interpretation Comments Alkaline Phosphatase (test code = 6768-6) 95 40-150 [facility] triglyceride measurement (mass/volume)2019-12-01 04:35:00* Test Item Value Reference Range Interpretation Comments Triglycerides Level (test code = 2571-8) 205 0-149 [facility] cholesterol measurement (mass/volume)2019-12-01 04:35:00* Test Item Value Reference Range Interpretation Comments Cholesterol Level (test code = 2093-3) 103 0-199 Less than 200 mg/dL Low Wjpu900 - 239 mg/dL Borderline Sivf652 m g/dl and greater High Risk [facility] cholesterol in LDL measurement (mass/volume) 2019-12-01 04:35:00* Test Item Value Reference Range Interpretation Comments LDL Cholesterol (test code = 2089-1) 36 60-130 [facility] cholesterol in HDL measurement (mass/volume)2019-12-01 04:35:00* Test Item Value Reference Range Interpretation Comments HDL Cholesterol (test code = 2085-9) 26 40-60 [facility] plasma total cholesterol/cholesterol in HDL mass jfpwp5554-64-58 04:35:00* Test Item Value Reference Range Interpretation Comments Cholesterol/HDL Ratio (test code = 9830-1) 4.0 3.0-3.6 [facility] or plasma creatine kinase measurement (enzymatic activity/volume)2019-12-01 04:35:00* Test Item Value Reference Range Interpretation Comments Creatine Kinase (test code = 2157-6) 27 29-168 [facility] plasma creatine kinase MB measurement (mass/volume)2019-12-01 04:35:00* Test Item Value Reference Range Interpretation Comments Creatine Kinase MB (test code = 63558-7) 0.50 0-5.0 [facility] ClinicTroponin I measurement by highly sensitive enzyme rezlbipdbzo2666-99-20 04:35:00* Test Item Value Reference Range Interpretation Comments Troponin I (test code = 35760-5) 0.010 0-0.300 [facility] ClinicBlood cobalamin (vitamin B12) measurement (mass/volume)2019-12-01 04:35:00* Test Item Value Reference Range Interpretation Comments Vitamin B12 Level (test code = 63141-1) 265 213-166 [facility] or plasma folate measurement (mass/volume)2019-12-01 04:35:00* Test Item Value Reference Range Interpretation Comments Folate (test code = 2284-8) 10.8 >3.0 A serum folate concentration of less than 3.1 ng/mL isconsidered to represent cl inical deficiency.Performed at: - [facility] [id number] Director: Heriberto Ham MD, Phone: [phone] Community Hospital and ClinicCHEST SINGLE (PORTABLE)2019-11-30 16:03:00 [facility] [address] [place] [address] Patient Name: MINA DIAZ MR #: [id number] : 1950 Age/Sex: 69/F Req #: [id number] Adm Physician: Ordered by: ALEXEY BUTT MD Report #: [id number] Location: ER Room/Bed: Procedure: [id number] DX/CHEST SINGLE (PORTABLE) Exam Date: 11/30/19 Exam Time: 1545 REPORT STATUS: Signed EXAM: CHEST S TA (PORTABLE) DATE: 11/30/2019 3:45 PM INDICATION: Shortness of br eath, anemia COMPARISON: None FINDINGS: The trachea is midline. The lungs are symmetrically expanded without evidence for large focal consolidati on, pneumothorax, or significant pleural effusion. The cardiomediastinal si lhouette and pulmonary vasculature are within normal limits. Tortuosity and va scular calcifications noted of the thoracic aorta. No acute osseous abnormalit y is identified. The surrounding soft tissues are unremarkable. IMPRES JOHANN: No acute cardiopulmonary process identified. Signed by: Dr. Boo Ferrer MD on 11/30/2019 4:03 PM Dictated By: BOO quiroga Signed By: BOO FERRER MD on 11/30/191602 Transcribed By: MIR on 1602 COPY TO: ALEXEY BUTT MD Prothrombin time (PT) in platelet poor plasma by coagulation wdhmr0275-84-47 15:29:00* Test Item Value Reference Range Interpretation Comments Prothrombin Time (test code = 5902-2) 12.5 11.9-14.5 [facility] ClinicINR in Platelet poor plasma by Coagulation tlaae3484-41-38 15:29:00* Test Item Value Reference Range Interpretation Comments Prothromb Time International Ratio (test code = 6301-6) 0.89 Oral Anticoagulant Therapy INR Values:1. Low Intensity Therapy 1.5 - 2.02 . Moderate Intensity Therapy 2.0 - 3.03. High Intensity Therapy(1) 2.5 - 3. 54. High Intensity Therapy(2) 3.0 - 4.05. Panic Value INR > 5.0 [facility] ClinicActivated partial thromboplastin time (aPTT) in platelet poor plasma by coagulation ugosl1488-77-22 15:29:00* Test Item Value Reference Range Interpretation Comments Activated Partial Thromboplast Time (test code = 64342-8) 30.6 23.8-35.5 [facility] ClinicBNP Nef-xJqi1811-37-29 15:29:00* Test Item Value Reference Range Interpretation Comments B-Type Natriuretic Peptide (test code = 22938-5) < 10.0 0-100 [facility] ClinicFluoroscopic procedure less than one hour nytqvzex0282-93-87 13:00:00* Test Item Value Reference Range Interpretation Comments Coronavirus (PCR) (test code = Coronavirus (PCR)) DETECTED NOTD ETECTED SARS-COV2/RT-PCRResults are for the detection of SARS-COV-2 RNA. The SARS-COV-2 RNA is generally detectable in nasopharyngeal swab specimens during the acute ph ase of infection. Positive results are indicitive of active infection with SARS- COV-2; clinical correlation with patient history and other diagnostic informatio n is necessary to determine patient infection status. Positive results do not ru le out bacterial infection or co-infection with other viruses. The agent detecte d may not be the definite cause of the disease.The limit of detection for this a ssay is 250 copies/mLThe SARS-CoV-2 test is a rapid, real-time RT-PCR test inten ded for the qualitative detection of nucleic acid from SARS-CoV-2 in nasopharyng eal swab specimen collected from individuals suspected of COVID-19 by their [facility] provider. This test has not been Food and Drug Administration (FDA) clear ed or approved and has been authorized by FDA under an Emergency Use Authorizati on (EUA). This EUA will be effective until the declaration that circumstances ex ist justifying the authorization of the emergency use of in vitro diagnostic jeff t for detection and or diagnosis of COVID-19 is terminated under section 564(b) of the Act, or the the EUA is revoked under 564(g) of the ACT.Testing performed by [address] [place] [address] BRAIN HF3898-51-01 15:48:00 [place] [address] Patient Name: MINA DIAZ MR #: [id number] : 1950 Age/Sex: 68/F Req #: [id number] Adm Physician: Ordered by: FILEMON KUNZ NP Report #: [id number] Location: ER Room/Bed: Procedure: [id number] CT/C T BRAIN WO Exam Date: 12/20/18 Exam Time: 1530 REPORT STATUS: Signed History:Headach es Comparison studies:CT head 08/25/2018 Technique: Axial images wer e obtained from the skull base to the vertex. Coronal and sagittal reconstru ctions obtained from the axial data. Dose modulation, iterative reconstruction , and/or weight based adjustment of the mA/kV was utilized to reduce the radia tion dose to as low as reasonably achievable. Findings: Scalp/skull: No abnormalities. No fractures, blastic or lytic lesions. Extra-axial s paces: No masses. No fluid collections. Brain sulci: Appropriate for ag e. Ventricles: Normal in size and configuration. No hydrocephalus. Parenc hyma: No abnormal densities. No masses, hemorrhage, acute or chronic corti jos vascular insults. Sellar/suprasellar region: No abnormalities Cranioc ervical junction: Patent foramen magnum. No Chiari one malformation. Mild atherosclerotic changes of the carotid siphons. IMPRESSION: No acute a bnormalities . Stable examination. Signed by: DR Shane Wilson M.D. on 12/20/2018 3:51 PM Dictated By: SHANE CARTER MD 1551 Transcribed By: MIR on 1551 COPY TO: FILEMON KUNZ NP Sodium Zukyx4950-44-28 15:19:00* Test Item Value Reference Range Interpretation Comments Sodium Level (test code = 2951-2) 139 136-145 [facility] ClinicPotassium Ybdtb7900-26-54 15:19:00* Test Item Value Reference Range Interpretation Comments Potassium Level (test code = 2823-3) 3.8 3.5-5.1 [facility] ClinicChloride Tvzcm1024-38-32 15:19:00* Test Item Value Reference Range Interpretation Comments Chloride Level (test code = 2075-0) 104 98-107 [facility] ClinicCarbon Dioxide Pyhum0466-22-03 15:19:00* Test Item Value Reference Range Interpretation Comments Carbon Dioxide Level (test code = 2028-9) 24 -29 [facility] ClinicAnion Kuf7047-65-75 15:19:00* Test Item Value Reference Range Interpretation Comments Anion Gap (test code = 10902-3) 14.8 8-16 [facility] ClinicBlood Urea Aqzbhpkp2872-32-43 15:19:00* Test Item Value Reference Range Interpretation Comments Blood Urea Nitrogen (test code = 3094-0) 15 7-26 [facility] ClinicCreatinine2019-08-19 15:19:00* Test Item Value Reference Range Interpretation Comments Creatinine (test code = 2160-0) 0.88 0.57-1.11 [facility] ClinicBUN/Creatinine Sqioo5761-77-03 15:19:00* Test Item Value Reference Range Interpretation Comments BUN/Creatinine Ratio (test code = 3097-3) 17 - [facility] ClinicEstimat Glomerular Filtration Rate 2018-12-20 15:19:00* Test Item Value Reference Range Interpretation Comments Estimat Glomerular Filtration Rate (test code = 408343005) > 60 >60 Ranges were taken from the National Kidney Disease Education Program and the [facility] [employer] literature.Reference ranges:60 or greater: Vgyrhd43-15 ( for 3 consecutive months): Chronic kidney disease 15 or less: Kidney failureFalls Community Hospital and ClinicGlucose Kmnji4301-26-68 15:19:00* Test Item Value Reference Range Interpretation Comments Glucose Level (test code = WWY0047) 129 74-118 H [facility] ClinicCalcium Kdmpf8667-39-33 15:19:00* Test Item Value Reference Range Interpretation Comments Calcium Level (test code = 15917-0) 9.4 8.4-10.2 [facility] ClinicTotal Jssduvwjx5451-22-89 15:19:00* Test Item Value Reference Range Interpretation Comments Total Bilirubin (test code = 1975-2) 0.5 0.2-1.2 [facility] ClinicAspartate Amino Transf (AST/SGOT) 2018-12-20 15:19:00* Test Item Value Reference Range Interpretation Comments Aspartate Amino Transf (AST/SGOT) (test code = Aspartate Amino Transf (AST/SGOT)) 14 5-34 [facility] ClinicAlanine Aminotransferase (ALT/SGPT) 2018-12-20 15:19:00* Test Item Value Reference Range Interpretation Comments Alanine Aminotransferase (ALT/SGPT) (test code = 1742-6) 14 0-55 [facility] ClinicTotal Zycjgsg3941-92-88 15:19:00* Test Item Value Reference Range Interpretation Comments Total Protein (test code = 2885-2) 7.3 6.5-8.1 [facility] ClinicAlbumin2019-08-19 15:19:00* Test Item Value Reference Range Interpretation Comments Albumin (test code = 1751-7) 3.4 3.5-5.0 L [facility] ClinicGlobulin2019-08-19 15:19:00* Test Item Value Reference Range Interpretation Comments Globulin (test code = 67593-5) 3.9 2.3-3.5 H [facility] ClinicAlbumin/Globulin Nezsy3005-13-77 15:19:00 * Test Item Value Reference Range Interpretation Comments Albumin/Globulin Ratio (test code = 1759-0) 0.9 0.8-2.0 [facility] ClinicAlkaline Qexwbzrapkf8047-69-25 15:19:00* Test Item Value Reference Range Interpretation Comments Alkaline Phosphatase (test code = 6768-6) 143 40-150 [facility] ClinicUrine RYB4348-88-57 15:12:00* Test Item Value Reference Range Interpretation Comments Urine WBC (test code = 5821-4) 0-5 0-5 [facility] ClinicUrine IXU2366-17-70 15:12:00* Test Item Value Reference Range Interpretation Comments Urine RBC (test code = 26617-1) NONE 0-5 [facility] ClinicUrine Ruxcylll3605-27-62 15:12:00* Test Item Value Reference Range Interpretation Comments Urine Bacteria (test code = 10296-7) MODERATE NONE H [facility] ClinicUrine Epithelial Faunh7308-97-17 15:12:00 * Test Item Value Reference Range Interpretation Comments Urine Epithelial Cells (test code = 34796-2) FEW NONE [facility] ClinicUrine Wuttv6239-10-80 15:00:00* Test Item Value Reference Range Interpretation Comments Urine Color (test code = 5778-6) YELLOW YELLOW [facility] ClinicUrine Qdytsql8302-32-47 15:00:00* Test Item Value Reference Range Interpretation Comments Urine Clarity (test code = 81422-3) CLEAR CLEAR [facility] ClinicUrine Specific Huiszkz0153-46-66 15:00:00 * Test Item Value Reference Range Interpretation Comments Urine Specific [place] (test code = 5811-5) 1.025 1.010-1.02 5 [facility] ClinicUrine uE4735-12-60 15:00:00* Test Item Value Reference Range Interpretation Comments Urine pH (test code = 55220-5) 6 5-7 [facility] ClinicUrine Leukocyte Yupuwltm5976-55-73 15:00:00* Test Item Value Reference Range Interpretation Comments Urine Leukocyte Esterase (test code = 01628-9) TRACE NEGATIV E H [facility] ClinicUrine Jshjdcz1313-32-99 15:00:00* Test Item Value Reference Range Interpretation Comments Urine Nitrite (test code = 37885-1) NEGATIVE NEGATIVE [facility] ClinicUrine Jcwouof9902-25-68 15:00:00* Test Item Value Reference Range Interpretation Comments Urine Protein (test code = 08691-7) TRACE NEGATIVE H [facility] ClinicUrine Glucose (UA)2018-12-20 15:00:00* Test Item Value Reference Range Interpretation Comments Urine Glucose (UA) (test code = 88587-5) NEGATIVE NEGATIVE [facility] ClinicUrine Gnujnwm0759-35-21 15:00:00* Test Item Value Reference Range Interpretation Comments Urine Ketones (test code = 02295-2) NEGATIVE NEGATIVE [facility] ClinicUrine Pbsatdosorvf1150-68-95 15:00:00* Test Item Value Reference Range Interpretation Comments Urine Urobilinogen (test code = 13988-0) 0.2 0.2-1 [facility] ClinicUrine Fvhmskfyl8214-48-84 15:00:00* Test Item Value Reference Range Interpretation Comments Urine Bilirubin (test code = 1977-8) NEGATIVE NEGATIVE [facility] ClinicUrine Ltvps0271-23-21 15:00:00* Test Item Value Reference Range Interpretation Comments Urine Blood (test code = 73178-4) NEGATIVE NEGATIVE [facility] ClinicWhite Blood Cexai3734-64-22 14:59:00* Test Item Value Reference Range Interpretation Comments White Blood Count (test code = 6690-2) 11.06 4.8-10.8 H [facility] ClinicRed Blood Chkrl5418-69-14 14:59:00* Test Item Value Reference Range Interpretation Comments Red Blood Count (test code = 789-8) 3.36 3.6-5.1 L [facility] ClinicHemoglobin2019-08-19 14:59:00* Test Item Value Reference Range Interpretation Comments Hemoglobin (test code = 16178-0) 9.9 12.0-16.0 L [facility] ClinicHematocrit2019-08-19 14:59:00* Test Item Value Reference Range Interpretation Comments Hematocrit (test code = 4544-3) 31.3 34.2-44.1 L [facility] ClinicMean Corpuscular Knpoyv4335-83-74 14:59:00* Test Item Value Reference Range Interpretation Comments Mean Corpuscular Volume (test code = 787-2) 93.2 81-99 [facility] ClinicMean Corpuscular Jaehfmelul6243-53-84 14:59:00* Test Item Value Reference Range Interpretation Comments Mean Corpuscular Hemoglobin (test code = 785-6) 29.5 28-32 [facility] ClinicMean Corpuscular Hemoglobin Concent 2018-12-20 14:59:00* Test Item Value Reference Range Interpretation Comments Mean Corpuscular Hemoglobin Concent (test code = 786-4) 31.6 31-35 [facility] ClinicRed Cell Distribution Upwlm6396-30-68 14:59:00* Test Item Value Reference Range Interpretation Comments Red Cell Distribution Width (test code = 14335-4) 15.1 11.7 -14.4 H [facility] and ClinicPlatelet Qclzz2855-12-92 14:59:00* Test Item Value Reference Range Interpretation Comments Platelet Count (test code = 777-3) 204 140-360 [facility] ClinicNeutrophils (%) (Auto)2018-12-20 14:59:00 * Test Item Value Reference Range Interpretation Comments Neutrophils (%) (Auto) (test code = 77768-6) 66.2 38.7-80.0 [facility] ClinicLymphocytes (%) (Auto)2018-12-20 14:59:00 * Test Item Value Reference Range Interpretation Comments Lymphocytes (%) (Auto) (test code = 736-9) 25.4 18.0-39.1 [facility] ClinicMonocytes (%) (Auto)2018-12-20 14:59:00* Test Item Value Reference Range Interpretation Comments Monocytes (%) (Auto) (test code = 5905-5) 5.1 4.4-11.3 [facility] ClinicEosinophils (%) (Auto)2018-12-20 14:59:00 * Test Item Value Reference Range Interpretation Comments Eosinophils (%) (Auto) (test code = 713-8) 2.4 0.0-6.0 [facility] ClinicBasophils (%) (Auto)2018-12-20 14:59:00* Test Item Value Reference Range Interpretation Comments Basophils (%) (Auto) (test code = 706-2) 0.5 0.0-1.0 [facility] ClinicIM GRANULOCYTES %2018-12-20 14:59:00* Test Item Value Reference Range Interpretation Comments IM GRANULOCYTES % (test code = IM GRANULOCYTES %) 0.4 0.0- 1.0 [facility] ClinicNeutrophils # (Auto)2018-12-20 14:59:00* Test Item Value Reference Range Interpretation Comments Neutrophils # (Auto) (test code = 751-8) 7.3 2.1-6.9 H [facility] ClinicLymphocytes # (Auto)2018-12-20 14:59:00* Test Item Value Reference Range Interpretation Comments Lymphocytes # (Auto) (test code = 77677-3) 2.8 1.0-3.2 [facility] ClinicMonocytes # (Auto)2018-12-20 14:59:00* Test Item Value Reference Range Interpretation Comments Monocytes # (Auto) (test code = 742-7) 0.6 0.2-0.8 [facility] ClinicEosinophils # (Auto)2018-12-20 14:59:00* Test Item Value Reference Range Interpretation Comments Eosinophils # (Auto) (test code = 711-2) 0.3 0.0-0.4 [facility] ClinicBasophils # (Auto)2018-12-20 14:59:00* Test Item Value Reference Range Interpretation Comments Basophils # (Auto) (test code = 704-7) 0.1 0.0-0.1 [facility] ClinicAbsolute Immature Granulocyte (auto 2018-12-20 14:59:00* Test Item Value Reference Range Interpretation Comments Absolute Immature Granulocyte (auto (jeff t code = Absolute Immature Granulocyte (auto) 0.04 0-0.1 [facility] ClinicCT BRAIN [id number] 02:40:00 [place] [address] Patient Name: MINA DIAZ MR #: [id number] : 1950 Age/Sex: 68/F Req #: [id number] Adm Physician: Ordered by: BYRON JACKSON MD Report #: [id number] Location: ER Room/Bed: Procedure: [id number] CT /CT BRAIN WO Exam Date: 08/25/18 [...] of the bilateral TMJs. Signed by: Dr. Shanelle Lawson M.D. on 08/25/2018 2:44 AM Dictated B y: SHANELLE LAWSON MD 3 Tr anscribed By: MIR on 08/25/18243 COPY TO: BYRON JACKSON MD CT MAXIO FAC/PARANAS [id number] 02:40:00 [place] [address] Patient Name: MINA DIAZ MR #: [id number] : 1950 Age/Sex: 68/F Req #: [id number] Adm Physician: Ordered by: BYRON JACKSON MD Report #: [id number] Location: ER Room/Bed: Procedure: [id number] CT /CT MAXIO FAC/PARANAS WO Exam Date: [...] mass, hemorrhage or CT evidence of acute vascula r insult. Brain volume: Normal for age. Ventricles: [...] the treasure ateral TMJs. Signed by: Dr. Shanelle Lawson M.D. on 08/25/2018 2:44 AM Dictated By: SHANELLE LAWSON MD 3 COPY TO: ANT JACKSON MD BREAST,TBCODB5681-80-96 17:12:00 RUN DATE: 08/20/18 [facility] PAGE 1 RUN TIME: 1713 Specimen Inqui ry RUN USER: INTERFACE PATIENT: MINA DIAZ ACCT #: V [id number] LOC: MOISE #: [id number] AGE/SX: 68/F ROOM: RE08/18/18REG DR: Javier Dimas DO : [birth year] BED: DIS: STATUS: PRE REF TLOC: SPEC #: [id number] RECD: 08/18/18 STATUS: SARAH REVeto #: [id number] REG: 08/18/[address]: Racquel Rocha MD ENTERED: 08/18/18 SP TYPE: BX BREAST OTHR DR: TUMOR REGISTRY ORDERED: GROSS COPIES TO: Racquel Rocha MD [address], [address] [place] [address] TUMOR REGISTRY JAZMYN ERS: MALIGNANCY PROCEDURES: GROSS (08/20/18) TISSUES: 1. BREAST C ORE BIOPSY - [...] immunoperoxidase stains. The slides are reviewed at [facility]. The controls stain appropriately. The malignant cells are shown to be strongly and diffusely positive for pancytokeratin confi rming epithelial origin. No reactivity for E-Cadherin is present compatible wi th lobular differentiation. The tumor is seen extending through fibrous tissue and skeletal muscle fibers. No lymphovascular invasion is identified. CONTINUED ON NEXT PAGE RUN DATE: 08/20 [place] - Lab PAGE 2 RUN TIME: 3 Specimen Inquiry RUN U SER: INTERFACE ------- -----SPEC #: [id number] PATIENT: MINA DIAZ #[id number] (Continued) COMMENT (Continued) Pr ognostic studies [...] FIBERS NO LYMPHOVASCULAR INVASION IDENTIFIED RRB/sm D [phone] MACROSCOPIC The first specimen is received in [...] placed on the biopsies. GROSS PERFORMED AT [facility] [address] [place] [address], [place] [address] ([phone] C ONTINUED ON NEXT PAGE RUN DATE: 08/20/18 [facility] PAGE 3 RUN TIME: 1713 Specimen Inquiry RUN USER: INTERFACE SPEC #: [id number] PATIENT: MINA DIAZ #[id number] (Continued) - MICROSCOPIC All of the stains, including any controls performed, stain appropriately. MICROSCOPIC PERFORMED AT [facility] [address] [place] [address] (P) PERFORMING SITE Diagnosis performed at: [facility], [place] [address] [place], [place] [address] Signed PEYMAN GREEN ON FILE Chris Watson MD 08/20/18 1712 --------- --- END OF REPOR T KGKCCNVILIH9084-58-67 17:15:00 RUN DATE: 04/13/18 [facility] PAGE 1 RUN TIME: 1716 Specimen Inqui ry RUN USER: INTERFACE PATIENT: MINA DIAZ ACCT #: V [id number] LOC: PBU U #: [id number] AGE/SX: 67/F ROOM: RE04/09/18REG DR: Dwight Carmona MD : 50 BED: DIS: STATUS: [facility] [place]: SPEC #: [id number] RECD: 04/12/18 STATUS: SARAH MCMAHON #: [id number] REG: 04/09/18- [facility] DR: Dwight Carmona MD ENTERED: 04/12/18 SP TYPE: HEMORRHOID OTHR DR: Javier Neff od, DO ORDERED: NASIMA COPIES TO: Javier Dimas DO [address] [place], [place] [id number] Dwight Carmona MD [address] [place], [place] [id number] PROCEDURES: NASIMA (04/13/18-1513) TI SSUES: HEMORRHOIDS CLINICAL HISTORY COLLECTION DATE: 2017 HEMORRHOIDS FINAL DIAGNOSIS Hemorrhoids, hemorrhoidectomy: ANORECTAL HEMORRHOIDS NEGATIVE FOR MALIGNANCY W/ D [address]08 MACROSCOPIC The specimen is received in formalin, labeled with the patient's name and identified as "hemorrhoids". It consists of a ta n white and pink soft tissue measuring 4.0 X 2.2 X 1.8 cm. Sectioning reveals a espinoza soft cut surface with areas of hemorrhage. Lever Tender sections is submitted as (1). GROSS PERFORMED AT [facility] CONTINUED ON NEXT PAGE RUN DATE: 04/13/18 [facility] PAGE 2 RUN TIME: 1716 Specimen Inquiry RUN USER: IN TERFACE SP EC #: [id number] PATIENT: EMILYMINAEMILY EUCEDA #[id number] ( Continued) MACROSCOPIC (Continued) [facility] [address] [place] [address], [place] [address] (p)[phone] MICROSCOPIC MICROSCOPIC PERFORMED AT [facility] All of the stains, including any controls performed, stain appropriately. [facility] [address] [facility], [place] [address] (p)[phone] PERFORMING SITE Diagnosis performed at: [facility] KRISTIAN osorio [address] [place] [address] Signed SIGNATURE ON FILE Steffany Gardner 04/13/18 0935 END OF REPORT
--- NOTE | 2019-12-16 22:38 | Diagnostic Imaging Report ---
EXAM: CT Abdomen chest, and Pelvis WITHOUT contrast INDICATION: ^Y ^SoB COMPARISON: CT abdomen/pelvis dated 12/04/2019 TECHNIQUE: Chest, Abdomen and pelvis were scanned utilizing a multidetector helical scanner from the lung apices to the pubic symphysis without administration of IV contrast. Absence of intravenous contrast decreases sensitivity for detection of focal lesions and vascular pathology. Coronal and sagittal reformations were obtained. Routine protocol was performed. IV CONTRAST: None ORAL CONTRAST: Water COMPLICATIONS: None RADIATION DOSE: Total DLP: 927.62 mGy*cm Estimated effective dose: (DLP x 0.015 x size factor) mSv CTDIvol has been reviewed. It is below the limits set by the Radiation Protocol Committee (RPC). FINDINGS: LINES and TUBES: None. LUNGS: Bilateral lower lung field mild scattered groundglass opacities, less conspicuous from prior exam. Stable 5 mm right middle lobe nodule. MEDIASTINUM: No mediastinal lymphadenopathy. Normal heart size. No pericardial effusion. After study constellation of coronary arteries. Prominent axillary lymph nodes, measuring up to 1.2 cm. HEPATOBILIARY: Unenhanced liver is unremarkable. No biliary ductal dilation. GALLBLADDER: Not visualized. SPLEEN: No splenomegaly. PANCREAS: No focal masses or ductal dilatation. ADRENALS: Persistent 1.8 cm left adrenal nodule. No right adrenal nodules. KIDNEYS/URETERS: No hydronephrosis. Limited for evaluation of renal parenchyma without intravenous contrast. No stones. GI TRACT: Right hemicolectomy. Unchanged appearance of multiple small bowel loops in right lower quadrant with some mesenteric swirling. No abnormal dilatation to suggest bowel obstruction. PELVIC ORGANS/BLADDER: Unremarkable. LYMPH NODES: Unchanged prominent inguinal lymph nodes. VESSELS: Limited evaluation without intravenous contrast. Collapsed IVC. PERITONEUM / RETROPERITONEUM: No free air. Unchanged small volume ascites. BONES: Diffuse osseous metastasis. SOFT TISSUES: New 2.6 x 4.8 cm left inguinal collection. Abdominal wall postsurgical changes. IMPRESSION: 1. Very limited study without intravenous contrast. 2. Bilateral lower lung field mild scattered groundglass opacities, less conspicuous from prior exam, likely improving multifocal pneumonia. 3. Prominent axillary lymph nodes, measuring up to 1.2. There are also few prominent inguinal lymph nodes. These are indeterminate and could be metastatic. 4. Unchanged appearance of multiple small bowel loops in right lower quadrant with some mesenteric swirling, suspicious for internal hernia. No abnormal dilatation to suggest bowel obstruction. 5. New 2.6 x 4.8 cm left inguinal collection, could represent an abscess or hematoma. 6. Diffuse osseous metastatic disease. 7. Unchanged left adrenal nodule. Signed by: Dr. Sajan Norris MD on 12/16/2019 10:35 PM
[2019-12-16] MEDS ORDERED: SODIUM CHLORIDE 0.9% 1000ML 1,000 ML IV SCH ×2 (23:45)
[2019-12-17] VITALS (12 sets, daily range): BP systolic 87–132; BP diastolic 50–68
[2019-12-17 00:07] LABS: CLARITY,URINE SL CLOUDY (CLEAR); COLOR,URINE YELLOW (YELLOW); KETONES,URINE 1+ (NEGATIVE); LEUKOCYTE ESTERASE ,URINE TRACE (NEGATIVE); NITRITE,URINE NEGATIVE (NEGATIVE); PROTEIN,URINE DIPSTICK 2+ (NEGATIVE)
[2019-12-17 00:08] LABS: BILIRUBIN,URINE LARGE (NEGATIVE); URINE UROBILINOGEN 0.2 mg/dL (0.2 - 1)
[2019-12-17 00:16] LABS: BACTERIA,URINE MODERATE /HPF; EPITHELIAL CELLS,URINE MODERATE /LPF; WBC,URINE (MAN) 21-50 /HPF (0-5)
[2019-12-17] MEDS ORDERED: CEFTRIAXONE SOD 1 GM/NS 50 ML 50 ML IV ONE (00:30)
[2019-12-17] MEDS ORDERED: SODIUM CHLORIDE 0.9% 1000ML 1,000 ML IV ONE (01:00)
--- OUTSIDE RECORDS SUMMARY | 2019-12-17 01:41 | XMS REPORT | Continuity of Care Document ---
Author Author [facility] t Organization [facility] Address [address] [place] [address] Phone Unavailable Care Team Providers Care [employer]er Name Role Phone NONSTAFF PCP Unavailable Dmitriy Gurrola Attphys Unavailable EWA MOE Attphys Unavailable MISAEL, Daisy GREENFIELD Attphys Unavailable MANUEL, S AMBICA Attphys Unavailable EWA MOE Admphys Unavailable Payers Payer Name Policy Type Policy Number Effective Date Expiration Date Tahira morales [facility] [id number] 2019 00:00:00 [facility] [employer] [id number] [facility] Medicare A & B [id number] [facility] Problems Condition Name Condition Details Condition Category Status Onset Date Resolution Date Last Treatment Date Treating Clinician Comments Source Anemia Problem Active [facility] Dyspnea on exertion Problem Active [facility] Allergies, Adverse Reactions, Alerts Allergy Name Allergy Type Status Severity Reaction(s) Onset Date Inacti ve Date Treating Clinician Comments Source No Known Allergies DA Active U 2018-04-16 00:00:00 [facility] No Known Allergies DA Active U 2012-11-26 00:00:00 [facility] Social History Social Habit Start Date Stop Date Quantity Comments Source Sex Assigned At 1950 00:00:00 1950 00:00:00 Female [facility] Medications Ordered Medication Name Filled Medication Name Start Date Stop Da te Current Medication? Ordering Clinician Indication Dosage Frequency Signature (SIG) Comments Components Source Albuterol Sulfate Albuterol Sulfate Yes 90 As N eeded [facility] Bupropion Hcl (Bupropion Xl) 150 Mg TAB.ER.24H Bupropi on Hcl (Bupropion Xl) 150 Mg TAB.ER.24H Yes 150 Daily [facility] Ferrous Sulfate Ferrous Sulfate Yes 325 Twice A Day [facility] Magnesium Oxide Magnesium Oxide Yes 200 Daily [facility] Metformin Hcl Metformin Hcl Yes 1000 Daily [facility] Metoprolol Tartrate Metoprolol Tartrate Yes 25 Daily [facility] Ondansetron Hcl (Zofran*) 4 Mg TABLET Ondansetron Hcl (Zofran*) 4 M g TABLET Yes 4 As Needed as needed for Nausea [facility] Pantoprazole Sodium (Protonix) 40 Mg TABLET. Pantopr azole Sodium (Protonix) 40 Mg TABLET. Yes 40 Daily [facility] Rosuvastatin Calcium (Crestor) 10 Mg TAB Rosuvastatin Calcium (Crestor) 10 Mg TAB Yes 20 Daily [facility] Sucralfate Sucralfate Yes 1 Fo ur Times Daily as needed for Mild Pain (1-3) [facility] Lisinopril Lisinopril 2019-12-07 00:00:00 No Alaina ly [facility] Vital Signs Vital Name Observation Time Observation Value Comments Source Body Temperature 2019-12-07 16:08:00 99.3 [degF] [facility] BMI (Body Mass Index) 2019-11-30 18:00:00 34.2 kg/m2 [facility] Weight 2019-11-30 15:18:00 175 [lb_av] [facility] Procedures Procedure Date / Time Performed Performing Clinician Jacy olivera CT of abdomen and pelvis without contrast 2019-12-04 00:00:00 [facility] Ultrasound, renal 2019-12-02 00:00:00 [facility] Plan of Care Planned Activity Planned Date Details Comments Source Instructions COVID-19: 07/18/2019 [facility] Instructions Post Operative Pain [facility] Encounters Start Date/Time End Date/Time Encounter Type Admission Type Attendi [facility] Care Department Encounter ID Source 2018-12-20 14:31:00 2018-12-20 16:40:00 Departed Emergency Room 1 GIN DOUGLAS [facility] [id number] [facility] 2018-08-25 01:33:00 2018-08-25 06:03:00 Departed Emergency Room 1 BYRON JACKSON [facility] [id number] [facility] Results Test Description Test Time Test Comments Results Result Comments Source CT CHEST WO 2019-12-16 22:16:00 [place] [address] Patient Name: MINA DIAZ MR #: [id number] : 1950 Age/Sex: 69/F Req #: [id number] Adm Physician: Ordered by: Jerrod Gurrola MD Report #: [id number] Location: ER Room/Bed: Procedure: [id number] CT/CT CHEST WO Exam Date: Exam Time: REPORT STATUS: Signed EXAM: CT Abdomen chest, and Pelvis WITHOUT contrast INDICATION: Y SoB COMPARISON: CT abdomen/pelvis dated 12/04/2019 TECHNIQUE: Chest, Abdomen and pelvis were scanned utilizing a multidetector helical scanner from the lung apices to the pubic symphysis without a dministration of IV contrast. Absence of intravenous contrast decreases sensitivity for detection of focal lesions and vascular pathology. Coronal and sagittal reformations were obtained. Routine protocol was performed. IV CONTRAST: None ORAL CONTRAST: Water COMPLICATIONS: None RADIATION DOSE: Total DLP: 927.62 mGy*cm Estimated effective dose: (DLP x 0.015 x size factor) mSv CTDIvol has been reviewed. It is below the limits set by the Radiation Protocol Committee (RPC). FINDINGS: LINES and TUBES: None. LUNGS: Bilateral lower lung field mild scattered groundglass opacities, less conspicuous from prior exam. Stable 5 mm right middle lobe nodule. MEDIASTINUM: No mediastinal lymphadenopathy. Normal heart size. No pericardial effusion. After study constellation of coronary arteries. Prominent axillary lymph nodes, measuring up to 1.2 cm. HEPATOBILIARY: Unenhanced liver is unremarkable. No biliary ductal dilation. GALLBLADDER: Not visualized. SPLEEN: No splenomegaly. PANCREAS: No focal masses or ductal dilatation. ADRENALS: Persistent 1.8 cm left adrenal nodule. No right adrenal nodules. KIDNEYS/URETERS: No hydronephrosis. Limited for evaluation of renal parenchyma without intravenous contrast. No stones. GI TRACT: Right hemicolectomy. Unchanged appearance of multiple small bowel loops in right lower quadrant with some mesenteric swirling. No abnormal dilatation to suggest bowel obstruction. PELVIC ORGANS/BLADDER: Unremarkable. LYMPH NODES: Unchanged prominent inguinal lymph nodes. VESSELS: Limited evaluation without intravenous contrast. Collapsed IVC. PERITONEUM / RETROPERITONEUM: No free air. Unchanged small volume ascites. BONES: Diffuse osseous metastasis. SOFT TISSUES: New 2.6 x 4.8 cm left inguinal collection. Abdominal wall postsurgical changes. IMPRESSION: 1. Very limited study without intravenous contrast. 2. Bilateral lower lung field mild scattered groundglass opacities, less conspicuous from prior exam, likely improving multifocal pneumonia. 3. Prominent axillary lymph nodes, measuring up to 1.2. There are also few prominent inguinal lymph nodes. These are indeterminate and could be metastatic. 4. Unchanged appearance of multiple small bowel loops in right lower quadrant with some mesenteric swirling, suspicious for internal hernia. No abnormal dilatation to suggest bowel obstruction. 5. New 2.6 x 4.8 cm left inguinal collection, could represent an abscess or hematoma. 6. Diffuse osseous metastatic disease. 7. Unchanged left adrenal nodule. Signed by: Dr. Gaston Alejandre MD on 12/16/2019 10:35 PM Dictated By: GASTON ALEJANDRE MD 34 Transcribed By: MIR on 12/16/192234 COPY TO: JERROD GURROLA MD CT ABDOMEN/PELVIS WO 2019-12-16 22:16:00 [place] [address] Patient Name: MINA DIAZ MR #: [id number] : 1950 Age/Sex: 69/F Req #: [id number] [facility] Physician: Ordered by: Jerrod Gurrola MD Report #: [id number] Location: ER Room/Bed: Procedure: [id number] CT/CT ABDOMEN/PELVIS WO Exam Date: Exam Time: REPORT STATUS: Signed EXAM: CT Abdomen chest, and Pelvis WITHOUT contrast INDICATION: Y SoB COMPARISON: CT abdomen/pelvis dated 12/04/2019 TECHNIQUE: Chest, Abdomen and pelvis were scanned utilizing a multidetector helical scanner from the lung apices to the pubic symphysis wi thout administration of IV contrast. Absence of intravenous contrast decreases sensitivity for detection of focal lesions and vascular pathology. Coronal and sagittal reformations were obtained. Routine protocol was performed. IV CONTRAST: None ORAL CONTRAST: Water COMPLICATIONS: None RADIATION DOSE: Total DLP: 927.62 mGy*cm Estimated effective dose: (DLP x 0.015 x size factor) mSv CTDIvol has been reviewed. It is below the limits set by the Radiation Protocol Committee (RPC). FINDINGS: LINES and TUBES: None. LUNGS: Bilateral lower lung field mild scattered groundglass opacities, less conspicuous from prior exam. Stable 5 mm right middle lobe nodule. MEDIASTINUM: No mediastinal lymphadenopathy. Normal heart size. No pericardial effusion. After study constellation of coronary arteries. Prominent axillary lymph nodes, measuring up to 1.2 cm. HEPATOBILIARY: Unenhanced liver is unremarkable. No biliary d uctal dilation. GALLBLADDER: Not visualized. SPLEEN: No splenomegaly. PANCREAS: No focal masses or ductal dilatation. ADRENALS: Persistent 1.8 cm left adrenal nodule. No right adrenal nodules. KIDNEYS/URETERS: No hydronephrosis. Limited for evaluation of renal parenchyma without intravenous contrast. No stones. GI TRACT: Right hemicolectomy. Unchanged appearance of multiple small bowel loops in right lower quadrant with some mesenteric swirling. No abnormal dilatation to suggest bowel obstruction. PELVIC ORGANS/BLADDER: Unremarkable. LYMPH NODES: Unchanged prominent inguinal lymph nodes. VESSELS: Limited evaluation without intravenous contrast. Collapsed IVC. PERITONEUM / RETROPERITONEUM: No free air. Unchanged small volume ascites. BONES: Diffuse osseous metastasis. SOFT TISSUES: New 2.6 x 4.8 cm left inguinal collection. Abdominal wall postsurgical changes. IMPRESSION: 1. Very limited study without intravenous contrast. 2. Bilateral lower lung field mild scattered groundglass opacities, less conspicuous from prior exam, likely improving multifocal pneumonia. 3. Prominent axillary lymph nodes, measuring up to 1.2. There are also few prominent inguinal lymph nodes. These are indeterminate and could be metastatic. 4. Unchanged appearance of multiple small bowel loops in right lower quadrant with some mesenteric swirling, suspicious for internal hernia. No abnormal dilatation to suggest bowel obstruction. 5. New 2.6 x 4.8 cm left inguinal collection, could represent an abscess or hematoma. 6. Diffuse osseous metastatic disease. 7. Unchanged left adrenal nodule. Signed by: Dr. Gaston Alejnadre MD on 12/16/2019 10:35 PM Dictated By: GASTON ALEJANDRE MD 34 Transcribed By: MIR on 12/16/192234 COPY TO: JERROD GURROLA MD Capillary blood glucose measurement by glucometer (mas s/volume) 2019-12-07 15:08:00 Test Item Bedside Glucose (test code = 01810-7) 133 70-120 Meter ID: [id number] [facility] automated count (number/volume)2019-12-07 07:10:00* Test Item Value Reference Range Interpretation Comments White Blood Count (test code = 6690-2) 4.94 4.8-10.8 [facility] erythrocytes automated count (number/volume)2019-12-07 07:10:00* Test Item Value Reference Range Interpretation Comments Red Blood Count (test code = 789-8) 2.94 3.6-5.1 [facility] hemoglobin measurement (moles/volume)2019-12-07 07:10:00* Test Item Value Reference Range Interpretation Comments Hemoglobin (test code = 19024-7) 8.8 12.0-16.0 [facility] CenterAutomated blood hematocrit (volume fraction)2019-12-07 07:10:00* Test Item Value Reference Range Interpretation Comments Hematocrit (test code = 4544-3) 28.6 34.2-44.1 [facility] CenterAutomated erythrocyte mean corpuscular acvktv2102-43-99 07:10:00* Test Item Value Reference Range Interpretation Comments Mean Corpuscular Volume (test code = 787-2) 97.3 81-99 [facility] CenterAutomated erythrocyte mean corpuscular hemoglobin (mass per erythrocyte)2019-12-07 07:10:00* Test Item Value Reference Range Interpretation Comments Mean Corpuscular Hemoglobin (test code = 785-6) 29.9 28-32 [facility] CenterAutomated erythrocyte mean corpuscular hemoglobin concentration measurement (mass/volume)2019-12-07 07:10:00* Test Item Value Reference Range Interpretation Comments Mean Corpuscular Hemoglobin Concent (test code = 786-4) 30.8 31-35 [facility] CenterRDW ExwJq-Uld9408-16-05 07:10:00* Test Item Value Reference Range Interpretation Comments Red Cell Distribution Width (test code = 52795-0) 14.9 11.7 -14.4 [facility] CenterAutomated blood platelet count (count/volume)2019-12-07 07:10:00* Test Item Value Reference Range Interpretation Comments Platelet Count (test code = 777-3) 113 140-360 [facility] CenterAutomated blood segmented neutrophil count as percentage of total mdftmksuny7566-01-53 07:10:00* Test Item Value Reference Range Interpretation Comments Neutrophils (%) (Auto) (test code = 98490-7) 57.8 38.7-80.0 [facility] CenterAutomated blood lymphocyte count as percentage ot total uqmtyygfpj7695-20-88 07:10:00* Test Item Value Reference Range Interpretation Comments Lymphocytes (%) (Auto) (test code = 736-9) 35.4 18.0-39.1 [facility] CenterAutomated blood monocyte count as percentage of total gpcmeclgmr9381-86-81 07:10:00* Test Item Value Reference Range Interpretation Comments Monocytes (%) (Auto) (test code = 5905-5) 3.4 4.4-11.3 [facility] CenterAutomated blood eosinophil count as percentage of total xmnymxmwov5920-25-55 07:10:00* Test Item Value Reference Range Interpretation Comments Eosinophils (%) (Auto) (test code = 713-8) 1.6 0.0-6.0 [facility] CenterAutomated blood basophil count as percentage of total metmswyuet1302-24-98 07:10:00* Test Item Value Reference Range Interpretation Comments Basophils (%) (Auto) (test code = 706-2) 0.2 0.0-1.0 [facility] CenterFluoroscopic procedure less than one hour yhllgcjx0966-84-28 07:10:00* Test Item Value Reference Range Interpretation Comments IM GRANULOCYTES % (test code = IM GRANULOCYTES %) 1.6 0.0- 1.0 [facility] CenterAutomated blood neutrophil count 2019-12-07 07:10:00* Test Item Value Reference Range Interpretation Comments Neutrophils # (Auto) (test code = 751-8) 2.9 2.1-6.9 [facility] CenterBlood lymphocytes count (number/volume) 2019-12-07 07:10:00* Test Item Value Reference Range Interpretation Comments Lymphocytes # (Auto) (test code = 52764-9) 1.8 1.0-3.2 [facility] CenterBlood monocytes automated count (number/volume)2019-12-07 07:10:00* Test Item Value Reference Range Interpretation Comments Monocytes # (Auto) (test code = 742-7) 0.2 0.2-0.8 [facility] CenterAutomated blood eosinophil count 2019-12-07 07:10:00* Test Item Value Reference Range Interpretation Comments Eosinophils # (Auto) (test code = 711-2) 0.1 0.0-0.4 [facility] CenterAutomated blood basophil count (count/volume)2019-12-07 07:10:00* Test Item Value Reference Range Interpretation Comments Basophils # (Auto) (test code = 704-7) 0.0 0.0-0.1 [facility] CenterFluoroscopic procedure less than one hour bvqcrpnh2544-98-50 07:10:00* Test Item Value Reference Range Interpretation Comments Absolute Immature Granulocyte (auto (jeff t code = Absolute Immature Granulocyte (auto) 0.08 0-0.1 [facility] sodium measurement (moles/volume)2019-12-07 07:10:00* Test Item Value Reference Range Interpretation Comments Sodium Level (test code = 2951-2) 139 136-145 [facility] potassium measurement (moles/volume)2019-12-07 07:10:00* Test Item Value Reference Range Interpretation Comments Potassium Level (test code = 2823-3) 4.6 3.5-5.1 [facility] chloride measurement (moles/volume)2019-12-07 07:10:00* Test Item Value Reference Range Interpretation Comments Chloride Level (test code = 2075-0) 108 98-107 [facility] plasma carbon dioxide, total measurement (moles/volume)2019-12-07 07:10:00* Test Item Value Reference Range Interpretation Comments Carbon Dioxide Level (test code = 2028-9) 24 22-29 [facility] plasma anion pbq9044-01-06 07:10:00* Test Item Value Reference Range Interpretation Comments Anion Gap (test code = 65553-5) 11.6 8-16 [facility] urea nitrogen measurement (mass/volume)2019-12-07 07:10:00* Test Item Value Reference Range Interpretation Comments Blood Urea Nitrogen (test code = 3094-0) 12 -26 [facility] creatinine measurement (mass/volume)2019-12-07 07:10:00* Test Item Value Reference Range Interpretation Comments Creatinine (test code = 2160-0) 0.97 0.57-1.11 [facility] plasma urea nitrogen/creatinine mass vlvrq2525-26-68 07:10:00* Test Item Value Reference Range Interpretation Comments BUN/Creatinine Ratio (test code = 3097-3) 12 10-26 [facility] CenterEstimated glomerular filtration rate (GFR) tzdgfdzbtqrxw5749-72-79 07:10:00* Test Item Value Reference Range Interpretation Comments Estimat Glomerular Filtration Rate (test code = 976315136) 57 >60 Ranges were taken from the National Kidney Disease Education Program and the [facility] Kidney Foundation literature.Reference ranges:60 or greater: Oatmfd27-14 ( for 3 consecutive months): Chronic kidney disease 15 or less: Kidney failureCarl [facility]. [facility]arn[facility] Medical CenterGlucose buwbumfmoen4769-88-41 07:10:00* Test Item Value Reference Range Interpretation Comments Glucose Level (test code = IUY7476) 99 74-118 [facility] calcium measurement (mass/volume)2019-12-07 07:10:00* Test Item Value Reference Range Interpretation Comments Calcium Level (test code = 22591-7) 8.0 8.4-10.2 [facility] CenterBARIUM FSIVL4768-71-54 09:38:00 [facility] [address] [place] [address] Patient Name: MINA DIAZ MR #: [id number] : 1950 Age/Sex: 69/F Req #: [id number] Adm Physician: EWA MOE MD Ordered by: DWIGHT COLLINS MD Report #: [id number] Location: [facility] Room/Bed: [address] Procedure: [id number] DX/BARIUM ENEMA Exam Date: 12/05/19 Exam Time: [...] 12/05/19955 COPY TO: DWIGHT COLLINS MD IR OJQFKMS7789-31-24 09:38:00 [place] [address] Patient Name: MINA DIAZ MR #: [id number] : 1950 Age/Sex: 69/F Req #: [id number] Adm Physician: EWA MOE MD Ordered by: DWIGHT COLLINS MD Report #: [id number] Location: [facility] Room/Bed: [address] Procedure: [id number] DX/IR CONSULT E xaeliza Date: Exam Time: REPORT STATUS: Signed Discussed [...] the presence orabsence of malignant disease.Performed at: [address] [place], [place], [place] [id number] Director: Heriberto Ham MD, Phone: [phone] [facility]CT [facility]PELVIS PF9023-49-47 15:18:00 [facility] [address] [place], [place] [address] Patient Name: MINA DIAZ MR #: [id number] : 1950 Age/Sex: 69/F Req #: [id number] Adm Physician: EWA MOE MD Ordered by: LUZ SILVESTRE MD Report #: [id number] Location: [facility] Room/Bed: [place] [address] Procedure: [id number] CT/CT ABDOM EN/PELVIS WO Exam Date: 12/04/19 [...] Left adrenal hyperplasia versus metastasis. Signed by: Mike Nair MD o n 12/04/2019 3:50 PM Dictated By: MIKE NAIR MD 49 Transcribed By: MIR on 12/04/191549 COPY TO: LUZ SILVESTRE MD RENAL RETROPERITONEAL COMP 2019-12-02 15:50:00 [place] [address] Patient Name: MINA DIAZ MR #: [id number] : 1950 Age/Sex: 69/F Req #: [id number] Adm Physician: EWA MOE MD Ordered by: EWA MOE MD Report #: [id number] Location: [facility] Room/Bed: [place] [address] Procedure: [id number] US/US RENAL RETRO PERITONEAL COMP Exam Date: 12/02/19 Exam Time: 1506 REPORT STATUS: Signed EXAM: Sariah l Ultrasound INDICATION: pamela vs ckd [id number] COMPARI SON: None TECHNIQUE: Transverse and longitudinal [...] Automated reticulocyte count as percentage of total jfkomghuyrmr2099-84-25 04:35:00* Test Item Value Reference Range Interpretation Comments Percent Reticulocyte Count (test code = 43507-6) 1.6 0.8-2 .2 [facility] CenterFluoroscopic procedure less than one hour vtkcyrdf2472-34-49 04:35:00* Test Item Value Reference Range Interpretation Comments Hemoglobin A1c Percent (test code = Hemoglobin A1c Percent) 6.3 4.0-7.0 [facility] iron measurement (mass/volume)2019-12-01 04:35:00* Test Item Value Reference Range Interpretation Comments Iron Level (test code = 2498-4) 87 50-170 [facility] iron binding capacity measurement (mass/volume)2019-12-01 04:35:00* Test Item Value Reference Range Interpretation Comments Total Iron Binding Capacity (test code = 2500-7) 291 261-4 78 [facility] iron saturation measurement (mass fraction)2019-12-01 04:35:00* Test Item Value Reference Range Interpretation Comments Percent Iron Saturation (test code = 2502-3) 30 15-50 [facility] plasma transferrin measurement (mass/volume)2019-12-01 04:35:00* Test Item Value Reference Range Interpretation Comments Transferrin (test code = 3034-6) 208 180-382 [facility] plasma ferritin measurement (mass/volume)2019-12-01 04:35:00* Test Item Value Reference Range Interpretation Comments Ferritin (test code = 2276-4) > 2000.00 4.63-204.00 [facility] plasma total bilirubin measurement (mass/volume)2019-12-01 04:35:00* Test Item Value Reference Range Interpretation Comments Total Bilirubin (test code = 1975-2) 0.3 0.2-1.2 [facility] CenterFluoroscopic procedure less than one hour slalxhlb5067-77-53 04:35:00* Test Item Value Reference Range Interpretation Comments Aspartate Amino Transf (AST/SGOT) (test code = Aspartate Amino Transf (AST/SGOT)) 26 5-34 [facility] plasma alanine aminotransferase measurement (enzymatic activity/volume)2019-12-01 04:35:00* Test Item Value Reference Range Interpretation Comments Alanine Aminotransferase (ALT/SGPT) (test code = 1742-6) 14 0-55 [facility] protein measurement (mass/volume)2019-12-01 04:35:00* Test Item Value Reference Range Interpretation Comments Total Protein (test code = 2885-2) 6.5 6.5-8.1 [facility] albumin measurement (mass/volume)2019-12-01 04:35:00* Test Item Value Reference Range Interpretation Comments Albumin (test code = 1751-7) 2.9 3.5-5.0 [facility] CenterPlasma globulin measurement (mass/volume) 2019-12-01 04:35:00* Test Item Value Reference Range Interpretation Comments Globulin (test code = 74634-1) 3.6 2.3-3.5 [facility] albumin/globulin mass iinbx3812-61-05 04:35:00* Test Item Value Reference Range Interpretation Comments Albumin/Globulin Ratio (test code = 1759-0) 0.8 0.8-2.0 [facility] alkaline phosphatase measurement (enzymatic activity/volume)2019-12-01 04:35:00* Test Item Value Reference Range Interpretation Comments Alkaline Phosphatase (test code = 6768-6) 95 40-150 [facility] triglyceride measurement (mass/volume)2019-12-01 04:35:00* Test Item Value Reference Range Interpretation Comments Triglycerides Level (test code = 2571-8) 205 0-149 [facility] plasma cholesterol measurement (mass/volume)2019-12-01 04:35:00* Test Item Value Reference Range Interpretation Comments Cholesterol Level (test code = 2093-3) 103 0-199 Less than 200 mg/dL Low Yhxo394 - 239 mg/dL Borderline Wvgh626 m g/dl and greater High Risk [facility] plasma cholesterol in LDL measurement (mass/volume) 2019-12-01 04:35:00* Test Item Value Reference Range Interpretation Comments LDL Cholesterol (test code = 2089-1) 36 60-130 [facility] or plasma cholesterol in HDL measurement (mass/volume)2019-12-01 04:35:00* Test Item Value Reference Range Interpretation Comments HDL Cholesterol (test code = 2085-9) 26 40-60 [facility] or plasma total cholesterol/cholesterol in HDL mass fzfff3860-04-45 04:35:00* Test Item Value Reference Range Interpretation Comments Cholesterol/HDL Ratio (test code = 9830-1) 4.0 3.0-3.6 [facility] or plasma creatine kinase measurement (enzymatic activity/volume)2019-12-01 04:35:00* Test Item Value Reference Range Interpretation Comments Creatine Kinase (test code = 2157-6) 27 29-168 [facility] or plasma creatine kinase MB measurement (mass/volume)2019-12-01 04:35:00* Test Item Value Reference Range Interpretation Comments Creatine Kinase MB (test code = 81636-4) 0.50 0-5.0 [facility] CenterTroponin I measurement by highly sensitive enzyme idjurlxyqlf3902-91-77 04:35:00* Test Item Value Reference Range Interpretation Comments Troponin I (test code = 25947-8) 0.010 0-0.300 [facility] CenterBlood cobalamin (vitamin B12) measurement (mass/volume)2019-12-01 04:35:00* Test Item Value Reference Range Interpretation Comments Vitamin B12 Level (test code = 68821-4) 265 213-816 [facility] or plasma folate measurement (mass/volume)2019-12-01 04:35:00* Test Item Value Reference Range Interpretation Comments Folate (test code = 2284-8) 10.8 >3.0 A serum folate concentration of less than 3.1 ng/mL isconsidered to represent cl inical deficiency.Performed at: - [facility] [id number] Director: Heriberto Ham MD, Phone: [phone] R. Darnall Army Medical CenterCHEST SINGLE (PORTABLE)2019-11-30 16:03:00 [place] [id number] Patient Name: MINA DIAZ MR #: [id number] : 1950 Age/Sex: 69/F Req #: [id number] Adm Physician: Ordered by: ALEXEY BUTT MD Report #: [id number] Location: ER Room/Bed: Procedure: [id number] DX/CHEST SINGLE (PORTABLE) Exam Date: 11/30/19 Exam [...] 4:03 PM Dictated By: BOO FERRER MD [facility] Signed By: BOO FERRER MD on 11/30/191602 Transcribed By: MIR on 160 COPY TO: ALEXEY BUTT MD Prothrombin time (PT) in platelet poor plasma by coagulation cnkpw0921-42-65 15:29:00* Test Item Value Reference Range Interpretation Comments Prothrombin Time (test code = 5902-2) 12.5 11.9-14.5 [facility] CenterINR in Platelet poor plasma by Coagulation hphnx4772-04-95 15:29:00* Test Item Value Reference Range Interpretation Comments Prothromb Time International Ratio (test code = 6301-6) 0.89 Oral Anticoagulant Therapy INR Values:1. Low Intensity Therapy 1.5 - 2.02 . Moderate Intensity Therapy 2.0 - 3.03. High Intensity Therapy(1) 2.5 - 3. 54. High Intensity Therapy(2) 3.0 - 4.05. Panic Value INR > 5.0 [facility] CenterActivated partial thromboplastin time (aPTT) in platelet poor plasma by coagulation hzehf0287-76-44 15:29:00* Test Item Value Reference Range Interpretation Comments Activated Partial Thromboplast Time (test code = 87058-4) 30.6 23.8-35.5 [facility] CenterBNP Ngc-wObp1779-35-29 15:29:00* Test Item Value Reference Range Interpretation Comments B-Type Natriuretic Peptide (test code = 22336-6) < 10.0 0-100 [facility] CenterFluoroscopic procedure less than one hour yzoguetu8736-09-54 13:00:00* Test Item Value Reference Range Interpretation [...] from individuals suspected of COVID-19 by their [facility] provider. This test has not been Food [...] under 564(g) of the ACT.Testing performed by [facility] [place] [id number] R. Darnall Army Medical CenterCT BRAIN LU5703-56-41 15:48:00 [facility] [address] [address] Patient Name: MINA DIAZ MR #: [id number] : 1950 Age/Sex: 68/F Req #: [id number] Adm Physician: Ordered by: FILEMON KUNZ NP Report #: [id number] Location: ER Room/Bed: Procedure: [id number] CT/C T BRAIN WO Exam Date: 12/20/18 [...] CARTER MD 50 Transcribed By: MIR on 1550 COPY TO: FILEMON KUNZ NP Sodium Uvnte6928-79-85 15:19:00* Test Item Value Reference Range Interpretation Comments Sodium Level (test code = 2951-2) 139 136-145 [facility] CenterPotassium Xepbp5384-54-41 15:19:00* Test Item Value Reference Range Interpretation Comments Potassium Level (test code = 2823-3) 3.8 3.5-5.1 [facility] CenterChloride Wituw2788-58-15 15:19:00* Test Item Value Reference Range Interpretation Comments Chloride Level (test code = 2075-0) 104 98-107 [facility] CenterCarbon Dioxide Giezk5494-40-97 15:19:00* Test Item Value Reference Range Interpretation Comments Carbon Dioxide Level (test code = 2028-9) 24 22-29 [facility] CenterAnion Uwj2632-42-94 15:19:00* Test Item Value Reference Range Interpretation Comments Anion Gap (test code = 98352-7) 14.8 8-16 [facility] CenterBlood Urea Rmvuvdfr5227-06-97 15:19:00* Test Item Value Reference Range Interpretation Comments Blood Urea Nitrogen (test code = 3094-0) 15 7-26 [facility] CenterCreatinine2019-08-19 15:19:00* Test Item Value Reference Range Interpretation Comments Creatinine (test code = 2160-0) 0.88 0.57-1.11 [facility] CenterBUN/Creatinine Pyfzt8562-88-62 15:19:00* Test Item Value Reference Range Interpretation Comments BUN/Creatinine Ratio (test code = 3097-3) 17 6-25 [facility] CenterEstimat Glomerular Filtration Rate 2018-12-20 15:19:00* Test Item Value Reference Range Interpretation Comments Estimat Glomerular Filtration Rate (test code = 353043370) > 60 >60 Ranges were taken from the National Kidney Disease Education Program and the [facility] [employer] literature.Reference ranges:60 or greater: Mdmikc83-91 ( for 3 consecutive months): Chronic kidney disease 15 or less: Kidney failureCarl R. Darnall Army Medical CenterGlucose Kkkpm0653-33-58 15:19:00* Test Item Value Reference Range Interpretation Comments Glucose Level (test code = PAK7086) 129 74-118 H [facility] CenterCalcium Ocukf0758-55-62 15:19:00* Test Item Value Reference Range Interpretation Comments Calcium Level (test code = 44141-1) 9.4 8.4-10.2 [facility] CenterTotal Cbwvasqxo0713-28-48 15:19:00* Test Item Value Reference Range Interpretation Comments Total Bilirubin (test code = 1975-2) 0.5 0.2-1.2 [facility] CenterAspartate Amino Transf (AST/SGOT) 2018-12-20 15:19:00* Test Item Value Reference Range Interpretation Comments Aspartate Amino Transf (AST/SGOT) (test code = Aspartate Amino Transf (AST/SGOT)) 14 5-34 [facility] CenterAlanine Aminotransferase (ALT/SGPT) 2018-12-20 15:19:00* Test Item Value Reference Range Interpretation Comments Alanine Aminotransferase (ALT/SGPT) (test code = 1742-6) 14 0-55 [facility] CenterTotal Alkzfte2231-99-35 15:19:00* Test Item Value Reference Range Interpretation Comments Total Protein (test code = 2885-2) 7.3 6.5-8.1 [facility] CenterAlbumin2019-08-19 15:19:00* Test Item Value Reference Range Interpretation Comments Albumin (test code = 1751-7) 3.4 3.5-5.0 L [facility] CenterGlobulin2019-08-19 15:19:00* Test Item Value Reference Range Interpretation Comments Globulin (test code = 71906-5) 3.9 2.3-3.5 H [facility] CenterAlbumin/Globulin Zrgia5703-07-62 15:19:00 * Test Item Value Reference Range Interpretation Comments Albumin/Globulin Ratio (test code = 1759-0) 0.9 0.8-2.0 [facility] CenterAlkaline Ombkvuaehyn7178-94-77 15:19:00* Test Item Value Reference Range Interpretation Comments Alkaline Phosphatase (test code = 6768-6) 143 40-150 [facility] CenterUrine NUE6371-51-25 15:12:00* Test Item Value Reference Range Interpretation Comments Urine WBC (test code = 5821-4) 0-5 0-5 [facility] CenterUrine UCG0480-62-16 15:12:00* Test Item Value Reference Range Interpretation Comments Urine RBC (test code = 81038-9) NONE 0-5 [facility] CenterUrine Moiyylye9151-52-39 15:12:00* Test Item Value Reference Range Interpretation Comments Urine Bacteria (test code = 60408-1) MODERATE NONE H [facility] CenterUrine Epithelial Jooqw6928-41-60 15:12:00 * Test Item Value Reference Range Interpretation Comments Urine Epithelial Cells (test code = 40432-9) FEW NONE [facility] CenterUrine Pyjvh1841-10-54 15:00:00* Test Item Value Reference Range Interpretation Comments Urine Color (test code = 5778-6) YELLOW YELLOW [facility] CenterUrine Psbpxvw9544-52-79 15:00:00* Test Item Value Reference Range Interpretation Comments Urine Clarity (test code = 38263-9) CLEAR CLEAR [facility] CenterUrine Specific Tfsnrmu6124-11-86 15:00:00 * Test Item Value Reference Range Interpretation Comments Urine Specific [place] (test code = 5811-5) 1.025 1.010-1.02 5 [facility] CenterUrine qD9939-01-15 15:00:00* Test Item Value Reference Range Interpretation Comments Urine pH (test code = 63888-2) 6 5-7 [facility] CenterUrine Leukocyte Xqckmaoi8879-82-60 15:00:00* Test Item Value Reference Range Interpretation Comments Urine Leukocyte Esterase (test code = 40455-8) TRACE NEGATIV E H [facility] CenterUrine Hpaplpi1403-89-07 15:00:00* Test Item Value Reference Range Interpretation Comments Urine Nitrite (test code = 19303-7) NEGATIVE NEGATIVE [facility] CenterUrine Sqmgnaj3508-35-27 15:00:00* Test Item Value Reference Range Interpretation Comments Urine Protein (test code = 12121-7) TRACE NEGATIVE H [facility] CenterUrine Glucose (UA)2018-12-20 15:00:00* Test Item Value Reference Range Interpretation Comments Urine Glucose (UA) (test code = 70118-3) NEGATIVE NEGATIVE [facility] CenterUrine Vpgkeig3987-75-74 15:00:00* Test Item Value Reference Range Interpretation Comments Urine Ketones (test code = 77965-9) NEGATIVE NEGATIVE [facility] CenterUrine Tnlyhztpuugq3301-50-81 15:00:00* Test Item Value Reference Range Interpretation Comments Urine Urobilinogen (test code = 11182-5) 0.2 0.2-1 [facility] CenterUrine Aurgvndyz3497-34-32 15:00:00* Test Item Value Reference Range Interpretation Comments Urine Bilirubin (test code = 1977-8) NEGATIVE NEGATIVE [facility] CenterUrine Rltty9978-91-17 15:00:00* Test Item Value Reference Range Interpretation Comments Urine Blood (test code = 51749-0) NEGATIVE NEGATIVE [facility] CenterWhite Blood Rcagi0840-73-51 14:59:00* Test Item Value Reference Range Interpretation Comments White Blood Count (test code = 6690-2) 11.06 4.8-10.8 H [facility] CenterRed Blood Odzkt9639-53-58 14:59:00* Test Item Value Reference Range Interpretation Comments Red Blood Count (test code = 789-8) 3.36 3.6-5.1 L [facility] CenterHemoglobin2019-08-19 14:59:00* Test Item Value Reference Range Interpretation Comments Hemoglobin (test code = 75249-0) 9.9 12.0-16.0 L [facility] CenterHematocrit2019-08-19 14:59:00* Test Item Value Reference Range Interpretation Comments Hematocrit (test code = 4544-3) 31.3 34.2-44.1 L [facility] CenterMean Corpuscular Yorcuz9041-43-85 14:59:00* Test Item Value Reference Range Interpretation Comments Mean Corpuscular Volume (test code = 787-2) 93.2 81-99 [facility] CenterMean Corpuscular Ubwucotloy3936-57-14 14:59:00* Test Item Value Reference Range Interpretation Comments Mean Corpuscular Hemoglobin (test code = 785-6) 29.5 28-32 [facility] CenterMean Corpuscular Hemoglobin Concent 2018-12-20 14:59:00* Test Item Value Reference Range Interpretation Comments Mean Corpuscular Hemoglobin Concent (test code = 786-4) 31.6 31-35 [facility] CenterRed Cell Distribution Sktgq2746-88-97 14:59:00* Test Item Value Reference Range Interpretation Comments Red Cell Distribution Width (test code = 86534-5) 15.1 11.7 -14.4 H [facility] CenterPlatelet Bwnru4390-78-35 14:59:00* Test Item Value Reference Range Interpretation Comments Platelet Count (test code = 777-3) 204 140-360 [facility] CenterNeutrophils (%) (Auto)2018-12-20 14:59:00 * Test Item Value Reference Range Interpretation Comments Neutrophils (%) (Auto) (test code = 77717-2) 66.2 38.7-80.0 [facility] CenterLymphocytes (%) (Auto)2018-12-20 14:59:00 * Test Item Value Reference Range Interpretation Comments Lymphocytes (%) (Auto) (test code = 736-9) 25.4 18.0-39.1 [facility] CenterMonocytes (%) (Auto)2018-12-20 14:59:00* Test Item Value Reference Range Interpretation Comments Monocytes (%) (Auto) (test code = 5905-5) 5.1 4.4-11.3 [facility] CenterEosinophils (%) (Auto)2018-12-20 14:59:00 * Test Item Value Reference Range Interpretation Comments Eosinophils (%) (Auto) (test code = 713-8) 2.4 0.0-6.0 [facility] CenterBasophils (%) (Auto)2018-12-20 14:59:00* Test Item Value Reference Range Interpretation Comments Basophils (%) (Auto) (test code = 706-2) 0.5 0.0-1.0 [facility] CenterIM GRANULOCYTES %2018-12-20 14:59:00* Test Item Value Reference Range Interpretation Comments IM GRANULOCYTES % (test code = IM GRANULOCYTES %) 0.4 0.0- 1.0 [facility] CenterNeutrophils # (Auto)2018-12-20 14:59:00* Test Item Value Reference Range Interpretation Comments Neutrophils # (Auto) (test code = 751-8) 7.3 2.1-6.9 H [facility] CenterLymphocytes # (Auto)2018-12-20 14:59:00* Test Item Value Reference Range Interpretation Comments Lymphocytes # (Auto) (test code = 12100-4) 2.8 1.0-3.2 [facility] CenterMonocytes # (Auto)2018-12-20 14:59:00* Test Item Value Reference Range Interpretation Comments Monocytes # (Auto) (test code = 742-7) 0.6 0.2-0.8 [facility] CenterEosinophils # (Auto)2018-12-20 14:59:00* Test Item Value Reference Range Interpretation Comments Eosinophils # (Auto) (test code = 711-2) 0.3 0.0-0.4 [facility] CenterBasophils # (Auto)2018-12-20 14:59:00* Test Item Value Reference Range Interpretation Comments Basophils # (Auto) (test code = 704-7) 0.1 0.0-0.1 [facility] CenterAbsolute Immature Granulocyte (auto 2018-12-20 14:59:00* Test Item Value Reference Range Interpretation Comments Absolute Immature Granulocyte (auto (jeff t code = Absolute Immature Granulocyte (auto) 0.04 0-0.1 [facility] UF7716-81-17 02:40:00 [facility] [address] [address] Patient Name: MINA DIAZ MR #: [id number] : 1950 Age/Sex: 68/F Req #: [id number] Adm Physician: Ordered by: BYRON JACKSON MD Report #: [id number] Location: ER Room/Bed: Procedure: [id number] CT /CT BRAIN WO Exam Date: 08/25/18 [...] COPY TO: BYRON JACKSON MD CT MAXIO FAC/PARANPANFILO UF4132-37-90 02:40:00 [place] [address] Patient Name: MINA DIAZ MR #: [id number] : 1950 Age/Sex: 68/F Req #: [id number] Adm Physician: Ordered by: BYRON JACKSON MD Report #: [id number] Location: ER Room/Bed: Procedure: [id number] CT /CT MAXIO FAC/PARANAS WO Exam Date: [...] MD 3 COPY TO: ANT JACKSON MD [facility],FDALBX6013-38-00 17:12:00 RUN DATE: 08/20/18 [facility] PAGE 1 RUN TIME: 1713 Specimen Inqui ry RUN USER: INTERFACE PATIENT: MINA DIAZ ACCT #: V [id number] LOC: MOISE U #: [id number] AGE/SX: 68/F ROOM: RE08/18/18[facility] DR: Javier Dimas DO : [birth year] BED: DIS: STATUS: PRE REF TLOC: SPEC #: [id number] RECD: 08/18/18 STATUS: SARAH MCMAHON #: [id number] REG: 08/18/18 [facility] DR: Racquel Rocha MD ENTERED: 08/18/18-1014 SP TYPE: BX BREAST OTHR DR: TUMOR REGISTRY ORDERED: GROSS COPIES TO: Racquel Rocha MD [address], [address] [place] [address] TUMOR REGISTRY JAZMYN ERS: MALIGNANCY PROCEDURES: GROSS (08/20/18-553) TISSUES: 1. BREAST C ORE BIOPSY - [...] immunoperoxidase stains. The slides are reviewed at [facility]. The controls stain appropriately. The malignant cells are shown to be strongly and diffusely positive for pancytokeratin confi rming epithelial origin. No reactivity for E-Cadherin is present compatible wi th lobular differentiation. The tumor is seen extending through fibrous tissue and skeletal muscle fibers. No lymphovascular invasion is identified. CONTINUED ON NEXT PAGE RUN DATE: 08/20 [facility] [place] PAGE 2 RUN TIME: 1713 Specimen Inquiry RUN U SER: INTERFACE ------- -----SPEC #: [id number] PATIENT: MINA DIAZ #[id number] (Continued) COMMENT (Continued) Pr ognostic studies [...] FIBERS NO LYMPHOVASCULAR INVASION IDENTIFIED RRB/sm D [phone], [phone] MACROSCOPIC The first specimen is received in [...] placed on the biopsies. GROSS PERFORMED AT [facility] [address] [place], [place] [address], [place] [address] (p)[phone] C ONTINUED ON NEXT PAGE RUN DATE: 08/20/18 [facility] PAGE 3 RUN TIME: 1713 Specimen Inquiry RUN USER: INTERFACE SPEC #: [id number] PATIENT: EMILYMINA #[id number] (Continued) - MICROSCOPIC All of the stains, including any controls performed, stain appropriately. MICROSCOPIC PERFORMED AT [facility] [address] [facility] [place] [address] (H) PERFORMING SITE Diagnosis performed at: [facility], [place] [address] [facility] [place] [address] Signed PEYMAN GREEN ON FILE Chris Watson MD 08/20/18 1712 --------- --- END OF REPOR T LONBKOAFMEC8397-08-42 17:15:00 RUN DATE: 04/13/18 [facility] [place] PAGE 1 RUN TIME: 1716 Specimen Inqui ry RUN USER: INTERFACE PATIENT: EMIYLMINA ACCT #: V [id number] LOC: ELYSSA U #: [id number] AGE/SX: 67/F ROOM: RE04/09/18REG DR: Dwight Carmona MD : 50 BED: DIS: STATUS: DEP SDC TLOC: SPEC #: [id number] RECD: 04/12/18 STATUS: SARAH MCMAHON #: [id number] REG: 04/09/18 DR: Dwight Carmona MD ENTERED: 04/12/18 SP TYPE: HEMORRHOID OTHR DR: Javier Neff od, DO ORDERED: GROSS COPIES TO: Javier Dimas DO [address] [place] [address] Dwight Carmona MD [address] [place], [place] [id number] PROCEDURES: GROSS (04/13/18) TI SSUES: HEMORRHOIDS CLINICAL HISTORY COLLECTION DATE: 2017 HEMORRHOIDS FINAL DIAGNOSIS Hemorrhoids, hemorrhoidectomy: ANORECTAL HEMORRHOIDS NEGATIVE FOR MALIGNANCY DMW/ D [address] MACROSCOPIC The specimen is received in formalin, labeled with the patient's name and identified as "hemorrhoids". It consists of a ta n white and pink soft tissue measuring 4.0 X 2.2 X 1.8 cm. Sectioning reveals a espinoza soft cut surface with areas of hemorrhage. Dispatcher Clerk sections is submitted as (1). GROSS PERFORMED AT [facility] CONTINUED ON NEXT PAGE RUN DATE: 04/13/18 [facility] PAGE 2 RUN TIME: 1716 Specimen Inquiry RUN USER: IN FREDERICK AMARA EC #: [id number] PATIENT: MINA DIAZ #[id number] ( Continued) MACROSCOPIC (Continued) [facility] [address] [place] [address] (P)[phone] MICROSCOPIC MICROSCOPIC PERFORMED AT [facility] All of the stains, including any controls performed, stain appropriately. [facility] [address] [place] [address] (P)[phone] PERFORMING SITE Diagnosis performed at: [facility] [place] [address] [id number] Signed SIGNATURE ON FILE Steffany Gardner 04/13/18 1715 END OF REPORT
[2019-12-17] MEDS ORDERED: METOPROLOL SUCC25 MG PO (04:35)
[2019-12-17] MEDS ORDERED: LISINOPRIL-HCT1 EAC2 PO (04:53)
[2019-12-17] MEDS ORDERED: SUCRALFATE 1 GM TAB PO PRN (05:00)
--- NOTE | 2019-12-17 06:04 | NUR ---
DR. RINCON DOING ROUNDS. NEW ORDERS RECEIVED FOR LABS TODAY AT 1000 AND NORMAL SALINE AT 75MLS/HR.
[2019-12-17] MEDS ORDERED: SODIUM CHLORIDE 0.9% 1000ML 1,000 ML ONE (06:21)
[2019-12-17] MEDS: SODIUM CHLORIDE 0.9% 1000ML 1,000 ML IV SCH ×2 (06:27→21:30)
[2019-12-17] MEDS: BUPROPION HCL 150 MG TABCR PO SCH (09:01)
[2019-12-17] MEDS: METOPROLOL SUCCINATE 25 MG TAB XL PO SCH (09:01)
[2019-12-17] MEDS: SIMVASTATIN 40 MG TAB PO SCH (09:02)
[2019-12-17] MEDS: PANTOPRAZOLE SOD 40 MG TABEC PO SCH (09:02)
[2019-12-17 10:29] LABS: BASOPHILS % 0.5 % (0.0-1.0); EOSINOPHILS # (AUTO) 0.2 (0.0-0.4); EOSINOPHILS % 3.1 % (0.0-6.0); HEMATOCRIT 26.7 % (34.2-44.1); HEMOGLOBIN 8.3 g/dL (12.0-16.0); LYMPHOCYTES # (AUTO) 2.6 (1.0-3.2); LYMPHOCYTES % 35.2 % (18.0-39.1); MEAN CORPUSCULAR HEMOGLOBIN 29.7 pg (28-32); MEAN CORPUSCULAR HGB CONC 31.1 g/dL (31-35); MEAN CORPUSCULAR VOLUME 95.7 fL (81-99); MONOCYTES # (AUTO) 0.4 (0.2-0.8); MONOCYTES % 5.7 % (4.4-11.3); PLATELET COUNT 182 x10e3/uL (140-360); RED BLOOD COUNT 2.79 x10e6/uL (3.6-5.1); RED CELL DISTRIBUTION WIDTH 14.7 % (11.7-14.4)
[2019-12-17 10:50] LABS: ALBUMIN 2.8 g/dL (3.5-5.0); ALBUMIN/GLOBULIN RATIO 0.8 (0.8-2.0); ANION GAP 15.6 mmol/L (8-16); CALCIUM 8.4 mg/dL (8.4-10.2); CREATININE, SERUM 1.87 mg/dL (0.57-1.11); MAGNESIUM 1.9 MG/DL (1.3-2.1); POTASSIUM 4.6 mmol/L (3.5-5.1)
--- NOTE | 2019-12-17 13:34 | Consultation ---
DATE OF CONSULTATION: HISTORY OF PRESENT ILLNESS: Ms. Ko is a very pleasant 69-year-old. She was recently diagnosed with gastric cancer. The patient comes in with shortness of breath. There is no fever, no chills. No cough/just short of breath, but she said she was really weak and fatigued when she came here. She was recently diagnosed with cancer. The patient is being admitted. PAST MEDICAL HISTORY: Otherwise she denies. PAST SURGICAL HISTORY: She denies. ALLERGIES: NKA. SOCIAL HISTORY: There is no smoking, drug abuse, or alcohol abuse. LABORATORY DATA: White count 8.8 and hemoglobin 8.9. Sodium 135, potassium of 4.6, creatinine 1.87. Her COVID-19 PCR is still pending. She had chest CT which was bilateral lower lung ground-glass opacities. IMPRESSION: 1. Pneumonia, atypical. Continue with current choice. 2. Lymph node, concern about metastases. Continue with antibiotic. Await PCR. Continue with isolation, can be discontinued isolation if the PCR is negative. MD SAHRA Perez/FRANCES /[id number]
[2019-12-18] VITALS (8 sets, daily range): BP systolic 118–135; BP diastolic 56–72
[2019-12-18] MEDS ORDERED: CEFTRIAXONE SOD 1 GM/NS 50 ML 50 ML IV SCH
[2019-12-18] MEDS: CEFTRIAXONE SOD 1 GM/NS 50 ML 50 ML IV SCH (00:10)
[2019-12-18 05:25] LABS: BASOPHILS % 0.4 % (0.0-1.0); EOSINOPHILS # (AUTO) 0.2 (0.0-0.4); EOSINOPHILS % 2.7 % (0.0-6.0); HEMATOCRIT 25.7 % (34.2-44.1); HEMOGLOBIN 7.9 g/dL (12.0-16.0); LYMPHOCYTES # (AUTO) 2.7 (1.0-3.2); LYMPHOCYTES % 35.7 % (18.0-39.1); MEAN CORPUSCULAR HEMOGLOBIN 29.9 pg (28-32); MEAN CORPUSCULAR HGB CONC 30.7 g/dL (31-35); MEAN CORPUSCULAR VOLUME 97.3 fL (81-99); MONOCYTES # (AUTO) 0.4 (0.2-0.8); MONOCYTES % 5.8 % (4.4-11.3); NEUTROPHILS % 53.8 % (38.7-80.0); PLATELET COUNT 167 x10e3/uL (140-360); RED BLOOD COUNT 2.64 x10e6/uL (3.6-5.1); RED CELL DISTRIBUTION WIDTH 14.9 % (11.7-14.4)
[2019-12-18 06:27] LABS: ANION GAP 12.9 mmol/L (8-16); CALCIUM 8.3 mg/dL (8.4-10.2); CREATININE, SERUM 1.41 mg/dL (0.57-1.11)
[2019-12-18 06:33] LABS: POTASSIUM 4.9 mmol/L (3.5-5.1)
--- NOTE | 2019-12-18 07:06 | NUR ---
SPOKE TO DR. RINCON AT THIS TIME REGARDING COVID TEST ON 12/16 RESULT IS NEGATIVE. SAID TO KEEP PATIENT IN ROOM [address] GRIFFIN TO DECIDE SINCE PATIENTS COVID TEST ON 12/12 OUTSIDE THE HOSPITAL THAT RESULTED ON 12/15 WAS POSITIVE PRIOR TO ADMISSION. REPORT GIVEN TO CECI CERVANTES
--- NOTE | 2019-12-18 08:43 | Progress Note ---
DATE: SUBJECTIVE: The patient did okay overnight. No new complaints. OBJECTIVE: VITAL SIGNS: Show temperature 97.8, pulse 85, blood pressure 122/56, sats 98% on room air. GENERAL: No apparent distress, lying in bed. LUNGS: Clear to auscultation bilaterally. CARDIOVASCULAR: Regular rate and rhythm. ABDOMEN: Good bowel sounds. Soft, nontender. No peritoneal signs. EXTREMITIES: No clubbing or cyanosis. NEUROLOGIC: Nonfocal. ASSESSMENT AND PLAN: 1. Urinary tract infection. Continue with her antibiotics. 2. COVID. Continue with monitoring since she is doing well. 3. Gastric cancer. Continue with her Protonix. 4. Hypertension. Continue with the metoprolol. 5. Hyperlipidemia. Continue with the simvastatin. 6. Anemia. We will check a CBC. 7. Acute kidney injury. Continue with current monitoring since she is doing better. Please see hospital chart for full details. MD AYALA Beltre/FRANCES /[id number]
[2019-12-18] MEDS: SODIUM CHLORIDE 0.9% 1000ML 1,000 ML IV SCH ×2 (13:22→22:15)
[2019-12-18] MEDS: PANTOPRAZOLE SOD 40 MG TABEC PO SCH (13:22)
[2019-12-18] MEDS: BUPROPION HCL 150 MG TABCR PO SCH (13:23)
[2019-12-18] MEDS: SIMVASTATIN 40 MG TAB PO SCH (13:23)
[2019-12-18] MEDS: METOPROLOL SUCCINATE 25 MG TAB XL PO SCH (13:23)
--- NOTE | 2019-12-18 14:21 | NUR ---
RECEIVED TRANSFER OF CARE REPORT FROM BILLY BERMEO; PT BEING TRANSFERRED FROM ROOM 185 TO ROOM 204. AWAITING PT'S ARRIVAL.
[2019-12-19] VITALS (9 sets, daily range): BP systolic 118–152; BP diastolic 53–77
[2019-12-19] MEDS: CEFTRIAXONE SOD 1 GM/NS 50 ML 50 ML IV SCH ×2 (00:45→23:49)
[2019-12-19 05:15] LABS: BASOPHILS % 0.6 % (0.0-1.0); EOSINOPHILS # (AUTO) 0.2 (0.0-0.4); EOSINOPHILS % 2.9 % (0.0-6.0); HEMATOCRIT 24.8 % (34.2-44.1); HEMOGLOBIN 7.8 g/dL (12.0-16.0); LYMPHOCYTES # (AUTO) 2.7 (1.0-3.2); LYMPHOCYTES % 37.6 % (18.0-39.1); MEAN CORPUSCULAR HEMOGLOBIN 31.2 pg (28-32); MEAN CORPUSCULAR HGB CONC 31.5 g/dL (31-35); MEAN CORPUSCULAR VOLUME 99.2 fL (81-99); MONOCYTES # (AUTO) 0.4 (0.2-0.8); MONOCYTES % 5.5 % (4.4-11.3); NEUTROPHILS # (AUTO) 3.7 (2.1-6.9); NEUTROPHILS % 50.9 % (38.7-80.0); PLATELET COUNT 139 x10e3/uL (140-360); RED CELL DISTRIBUTION WIDTH 15.3 % (11.7-14.4)
[2019-12-19] MEDS ORDERED: HYDROCODONE/APAP 10MG-325MG TAB PO PRN (05:15)
[2019-12-19] MEDS ORDERED: ACETAMINOPHEN 325 MG TAB PO PRN (05:15)
[2019-12-19 05:52] LABS: ALBUMIN 2.6 g/dL (3.5-5.0); ALBUMIN/GLOBULIN RATIO 0.8 (0.8-2.0); ANION GAP 12.9 mmol/L (8-16); CALCIUM 8.4 mg/dL (8.4-10.2); CREATININE, SERUM 1.07 mg/dL (0.57-1.11); MAGNESIUM 1.8 MG/DL (1.3-2.1); POTASSIUM 4.9 mmol/L (3.5-5.1)
--- NOTE | 2019-12-19 07:00 | NUR ---
RECEIVED PATIENT RESTING IN BED NO S/S OF DISTRESS. BED LOW, WHEELS LOCKED, SIDE RAILS X2. CALL LIGHT IN REACH WILL CONTINUE TO MONITOR PATIENT.
[2019-12-19] MEDS: SIMVASTATIN 40 MG TAB PO SCH (08:22)
[2019-12-19] MEDS: PANTOPRAZOLE SOD 40 MG TABEC PO SCH (08:22)
[2019-12-19] MEDS: BUPROPION HCL 150 MG TABCR PO SCH (08:22)
[2019-12-19] MEDS: METOPROLOL SUCCINATE 25 MG TAB XL PO SCH (08:22)
--- NOTE | 2019-12-19 11:26 | NUR ---
SPOKE WITH DR. GARVIN. PLAN FOR PLACEMENT OF VENOUS ACCESS PORT 12/19. PATIENT TO BE NPO AFTER MIDNIGHT.
[2019-12-19] MEDS: SODIUM CHLORIDE 0.9% 1000ML 1,000 ML IV SCH (12:16)
--- NOTE | 2019-12-19 13:19 | Progress Note ---
DATE: SUBJECTIVE: Ms. Ko is doing well. There are no new complaints. REVIEW OF SYSTEMS: HEENT: Negative. PULMONARY: Negative. CARDIAC: Negative. PHYSICAL EXAMINATION: GENERAL: She is currently alert, oriented. VITAL SIGNS: Stable, currently afebrile. HEENT: She is not icteric. NECK: Supple. CHEST: Clear. HEART: S1, S2. ABDOMEN: Soft. Bowel sounds present. No tenderness. EXTREMITIES: No edema. SKIN: No rash. LABORATORY DATA: Her urine shows multiple pathogen, Enterococcus with . Her white count is 7.27. Her COVID-19 was negative. Her sodium 137, potassium 4.9, and her creatinine today is 1.07, down from 1.87. IMPRESSION AND PLAN: Sepsis on admission, clinically seems to be getting better. She responded to Rocephin, probably UTI, can change to oral Keflex 500 mg p.o. t.i.d. and discharge home with to finish 14 days, discontinue isolation. Follow up as an outpatient. MD SAHRA Perez/FRANCES /[id number]
--- NOTE | 2019-12-19 15:30 | NUR ---
CONSENT FOR VENOUS ACCESS PORT PLACEMENT SIGNED BY PATIENT AND PLACED INTO CHART.
--- NOTE | 2019-12-19 19:15 | NUR ---
BEDSIDE SHIFT REPORT RECEIVED. PT IS ALERT AND ORIENTED X3. TELE ON. NS INFUSING VIA LEFT FA 20 G- PIV AT 75 ML/HR.RESPIRATIONS ARE EVEN AND UNLABORED.PT HAS HX SOB WITH EXERTION 02 AT 2L PRN.PT DENIES PAIN.DUSTIN CATH TO BE PLACED IN AM- NPO AFTER 12 MN. CALL LIGHT WITHIN REACH. BED IN LOW POSITION.
[2019-12-20] VITALS (8 sets, daily range): BP systolic 113–140; BP diastolic 56–78
[2019-12-20] MEDS: SODIUM CHLORIDE 0.9% 1000ML 1,000 ML IV SCH ×3 (00:55→17:01)
--- NOTE | 2019-12-20 07:00 | NUR ---
RECEIVED PATIENT RESTING IN BED NO S/S OF DISTRESS. BED LOW, WHEELS LOCKED, SIDE RAILS X2. CALL LIGHT IN REACH WILL CONTINUE TO MONITOR PATIENT.
--- NOTE | 2019-12-20 07:12 | Progress Note ---
DATE: SUBJECTIVE: The patient has no new complaints overnight. Urine culture shows multiple organisms, but appears to be doing better overall. OBJECTIVE: VITAL SIGNS: Temperature is 96.1, pulse 70, blood pressure 113/56, sats 100%. GENERAL: No apparent distress, lying in bed. CARDIOVASCULAR: Regular rate and rhythm. LUNGS: Clear to auscultation bilaterally. ABDOMEN: Good bowel sounds. Soft, nontender. EXTREMITIES: No clubbing or cyanosis. NEUROLOGIC: Nonfocal. ASSESSMENT AND PLAN: 1. Sepsis secondary to urinary tract infection. Continue with antibiotics per Infectious Disease. 2. Gastric cancer. The patient to have her port put in today. 3. Gastroesophageal reflux disease. Continue with pantoprazole and Carafate. 4. Hyperlipidemia. Continue with her simvastatin. 5. Hypertension. Continue metoprolol. 6. Anemia. Continue to monitor. 7. Acute kidney injury. She is doing much better. Creatinine is down of 1.07 now. 8. Thrombocytopenia. Continue to monitor. Please see hospital chart for full details. MD AYALA Beltre/VERÓNICAL /[id number]
--- NOTE | 2019-12-20 08:56 | NUR ---
PATIENT LEFT TO OR VIA BED IN STABLE CONDITION.
[2019-12-20] MEDS ORDERED: HEPARIN SOD (PORCINE) 1000 UNIT/ML SDV ONE (09:41)
[2019-12-20] MEDS ORDERED: SODIUM CHLORIDE 0.9% 50ML 100 ML ONE (09:42)
--- NOTE | 2019-12-20 10:56 | NUR ---
PATIENT BACK FROM OR. PATIENT HAS BANDAID TO RIGHT UPPER CHEST. CLEAN, DRY, AND INTACT. PATIENT DENIES PAIN. VS STABLE. CALL LIGHT IN REACH WILL CONTINUE TO MONITOR.
--- NOTE | 2019-12-20 11:08 | Consultation ---
DATE OF CONSULTATION: 12/20/2019 HISTORY OF PRESENT ILLNESS: The patient is a 69-year-old female, known to me. 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 She is now admitted with urinary tract infection, this has been treated. She will need venous access for chemotherapy. PAST MEDICAL HISTORY: As in the previous notes. FAMILY HISTORY: As in the previous notes. SOCIAL HISTORY: As in the previous notes. REVIEW OF SYSTEMS: Significant only for some fatigue and slight shortness of breath, which has improved. PHYSICAL EXAMINATION: GENERAL: The patient is awake and alert. VITAL SIGNS: Normal. HEENT: Sclerae not icteric. NECK: Had no masses. LUNGS: Equal breath sounds and clear. CARDIAC: Regular rate and rhythm. ABDOMEN: Soft. There is slight diffuse tenderness. EXTREMITIES: Showed no edema. NEUROLOGIC: Grossly intact. ASSESSMENT: A 69-year-old female with carcinomatosis, needs access for chemotherapy. PLAN: Placement of venous access port to be done tomorrow. Procedure was explained to the patient. Thank you for asking me to see Ms. Ko. MD MEI Gonzalez/FRANCES /[id number]
--- NOTE | 2019-12-20 11:13 | Operative Report ---
DATE OF PROCEDURE: 12/20/2019 SURGEON: Walter Collins MD PREOPERATIVE DIAGNOSIS: Metastatic carcinoma of the breast, carcinomatosis. POSTOPERATIVE DIAGNOSIS: Metastatic carcinoma of the breast, carcinomatosis. PROCEDURES: Placement of the left subclavian vein subcutaneous venous access port. OSTRICH FARM WORKER: None. ANESTHESIA: General. INDICATIONS AND FINDINGS: The patient is a 69-year-old female has metastatic carcinoma of breast carcinomatosis. She is to be treated with chemotherapy at surgery. There were no abnormalities in area of the port placement. Blood aspirated freely from the port at the end the procedure. Tip of the catheter was seen to be in the superior vena cava. TECHNIQUE: After adequate general anesthesia, the patient in supine position, the subclavian areas were prepped and draped in sterile fashion with ChloraPrep solution. The right subclavian vein was aspirated. J-wire was introduced, passed easily without resistance. Position of the wire in the superior vena cava was confirmed with fluoroscopy. Incision was then made in the deltopectoral groove with the wire exiting through the wound. A subcutaneous pocket was created in the inferior portion of the wound. A peel-away introducing sheath and dilator was passed over the guidewire and the catheter which had been flushed with heparinized saline was passed through the sheath and position of the superior vena cava under fluoroscopy. The catheter was aspirated, found to aspirate blood freely, then flushed with heparinized saline. The catheter was cut to the appropriate length, connected to the subcutaneous port, which had also been flushed heparinized saline. The port was then placed into the subcutaneous pocket and held in the pocket with sutures of 2-0 Ethibond. The entire port and catheter were inspected with fluoroscopy. There were no kinks and the catheter tip was seen to be in the superior vena cava. The wound was inspected for hemostasis, which was seen to be adequate. The wound was then closed with 3-0 Vicryl, subcutaneous tissue and 4-0 Vicryl subcuticular to the skin. Dermabond was applied to the wound. The port was accessed percutaneously with a Garcia needle was found to aspirate blood freely, was then flushed with heparinized saline and the needle was removed. The patient tolerated the procedure well. Estimated blood loss was 5 mL. There were no complications. All counts were correct and the patient was taken to the recovery room in satisfactory condition. MD MEI Gonzalez/FRANCES /[id number] cc: MD Igor Brown MD
[2019-12-20] MEDS: PANTOPRAZOLE SOD 40 MG TABEC PO SCH (11:32)
[2019-12-20] MEDS: METOPROLOL SUCCINATE 25 MG TAB XL PO SCH (11:33)
[2019-12-20] MEDS: SIMVASTATIN 40 MG TAB PO SCH (11:33)
[2019-12-20] MEDS: BUPROPION HCL 150 MG TABCR PO SCH (11:33)
--- NOTE | 2019-12-20 13:02 | Diagnostic Imaging Report ---
EXAMINATION: CHEST SINGLE (PORTABLE) INDICATION: Line placement COMPARISON: Chest CT 12/16/2019 FINDINGS: LINES/TUBES:Right chest port terminates near the superior cavoatrial junction. LUNGS:The lungs are moderately inflated. No focal consolidation or pulmonary edema. PLEURA:No pleural effusion or pneumothorax. MEDIASTINUM:The cardiomediastinal silhouette appears normal in size and shape. BONES/SOFT TISSUES:No acute osseous injury. ABDOMEN:No free air under the diaphragm. IMPRESSION: Right chest port terminates near the superior cavoatrial junction. No focal pneumonia or pulmonary edema. Signed by: Pia Akers MD on 12/20/2019 12:58 PM
[2019-12-20] MEDS ORDERED: MIDAZOLAM HCL 2 MG/2 ML VIAL ONE (15:08)
[2019-12-20] MEDS ORDERED: ONDANSETRON HCL INJ 2MG/ML 2ML 2 MG/ML VIAL ONE (19:35)
[2019-12-20] MEDS ORDERED: LIDOCAINE HCL 2% LOCAL INJ 5 ML SDV VIAL INJ ONE (19:35)
[2019-12-20] MEDS ORDERED: SEVOFLURANE INHAL SOLN 250 ML PEN BTL ONE (19:35)
[2019-12-20] MEDS ORDERED: PROPOFOL IV EMULSION 10 MG/ML 20 ML VIAL ONE (19:35)
--- NOTE | 2019-12-20 19:35 | NUR ---
BEDSIDE SHIFT REPORT RECEIVED FROM DAY RN. DUSTIN CATH PLACED YESTERDAY. DRESSING IS DRY AND INTACT. PT DENIES PAIN. PT IS ALERT AND ORINETED X3. DUSTIN CATH NOT BE USED AT THIS TIME PER DAY RN. 20 G LEFT PIV PATENT WITH HEALTHY SITE. NS INFUSING AT 75 ML/HR. CALL LIGHT WITHIN REACH.
[2019-12-21] VITALS: BP 132/64
[2019-12-21] MEDS: CEFTRIAXONE SOD 1 GM/NS 50 ML 50 ML IV SCH (00:08)
[2019-12-21] MEDS: SODIUM CHLORIDE 0.9% 1000ML 1,000 ML IV SCH ×3 (03:35→11:52)
[2019-12-21 04:00] VITALS: BP 124/63
[2019-12-21 07:34] LABS: BASOPHILS % 0.6 % (0.0-1.0); EOSINOPHILS # (AUTO) 0.3 (0.0-0.4); HEMOGLOBIN 7.4 g/dL (12.0-16.0); LYMPHOCYTES # (AUTO) 2.5 (1.0-3.2); LYMPHOCYTES % 34.3 % (18.0-39.1); MEAN CORPUSCULAR HEMOGLOBIN 29.7 pg (28-32); MEAN CORPUSCULAR HGB CONC 30.8 g/dL (31-35); MEAN CORPUSCULAR VOLUME 96.4 fL (81-99); MONOCYTES # (AUTO) 0.4 (0.2-0.8); MONOCYTES % 5.1 % (4.4-11.3); NEUTROPHILS # (AUTO) 3.8 (2.1-6.9); NEUTROPHILS % 52.8 % (38.7-80.0); PLATELET COUNT 148 x10e3/uL (140-360); RED BLOOD COUNT 2.49 x10e6/uL (3.6-5.1); RED CELL DISTRIBUTION WIDTH 15.1 % (11.7-14.4)
[2019-12-21 08:00] VITALS: BP 145/71
[2019-12-21 08:06] LABS: ALANINE AMINOTRANSFERASE 6 IU/L (0-55); ALBUMIN 2.3 g/dL (3.5-5.0); ALBUMIN/GLOBULIN RATIO 0.7 (0.8-2.0); ALKALINE PHOSPHATASE 85 IU/L (40-150); BLOOD UREA NITROGEN 8 mg/dL (7-26); BUN/CREATININE RATIO 9 (6-25); CALCIUM 8.1 mg/dL (8.4-10.2); CARBON DIOXIDE 21 mmol/L (22-29); CHLORIDE 113 mmol/L (98-107); CREATININE, SERUM 0.91 mg/dL (0.57-1.11); EST GLOMERULAR FILTRATION RATE > 60 ML/MIN (60-); GLUCOSE 110 mg/dL (74-118); MAGNESIUM 1.5 MG/DL (1.3-2.1); SODIUM 140 mmol/L (136-145)
[2019-12-21 08:09] VITALS: BP 145/71
[2019-12-21] MEDS: BUPROPION HCL 150 MG TABCR PO SCH (08:33)
[2019-12-21] MEDS: SIMVASTATIN 40 MG TAB PO SCH (08:33)
[2019-12-21] MEDS: METOPROLOL SUCCINATE 25 MG TAB XL PO SCH (08:33)
[2019-12-21] MEDS: PANTOPRAZOLE SOD 40 MG TABEC PO SCH (08:33)
[2019-12-21 12:00] VITALS: BP 149/71
[2019-12-21] MEDS ORDERED: ceftin PO (14:58)
--- NOTE | 2019-12-21 14:58 | NUR ---
infectious disease progress note late entry Patient seen and examined on December 19 patient overall is feeling better review of systems HEENT negative for elective cardiac negative negative gha-[id number] examination mental alert oriented but stable afebrile HEENT normal cephalic not protect neck supple chest clear bilateral heart S1-S2 no sheet for murmur abdomen soft also present extremity edema skin no rash sepsis on admission resolved UTI improving continue IV antibiotic for now can change to oral antibiotics tomorrow and discharge home discussed with medical team
--- NOTE | 2019-12-21 14:59 | NUR ---
section disease progress note Patient seen and examined chart reviewed patient is doing well overall review of systems unremarkable physical examination currently alert oriented vital separately afebrile patient to start taking neck supple chest clear heart S1-S2 abdomen soft but present extremity edema skin no rash depression UTI patient was discharged home with Ceftin 250 mg by mouth twice a day for 2 weeks total
[2019-12-21 16:00] VITALS: BP 132/62
--- NOTE | 2019-12-21 16:00 | NUR ---
aware patient cleared to discharge from ID standpoint. Aware Hgb 7.4. Orders to discharge patient received
--- NOTE | 2019-12-21 16:26 | NUR ---
Per , rx for ceftin will be faxed to [facility] on [email or web address]. Patient aware
--- NOTE | 2019-12-21 17:54 | NUR ---
Left FA IV discontinued. No signs of infiltration noted. Placed 2x2 gauze and coban. Taken via wheelchair to personal car by PCT. AAOX3 to time, person, place. Respirations even and unlabored. Dressing to right chest clean, dry, and intact. Discharge instructions and all personal belongings taken with patient.
--- NOTE | 2019-12-22 05:25 | Discharge Summary ---
DISCHARGE DIAGNOSES: 1. Sepsis secondary to urinary tract infection. 2. Gastric cancer. 3. Acute kidney injury. HISTORY OF PRESENT ILLNESS AND HOSPITAL COURSE: See hospital chart for full details. The patient is a lady, presented with gastric cancer, who presented with evidence of urinary tract infection, acute kidney injury. She was brought in and placed on IV antibiotics, IV fluids, which helped improve her kidney injury tremendously. At the time of discharge, she was able to go well multiple organisms on the culture that was sensitive to the Ceftin per Infectious Disease. So at the time of discharge, she was given 250 mg of Ceftin b.i.d. for 14 more days for the urinary tract infection. Of note, while she was in the hospital, she did have a Port-A-Cath placed for upcoming surgery for gastric cancer. Follow up is with her oncologist, GI doctor, and her PCP in 1 to 2 weeks. Please see hospital chart for full details. MD AYALA Beltre/FRANCES /[id number]
== END 2019-12-21 17:54 | disposition home or self-care (01) | DRG 854 ==
LOC: ER 21:17 → ERHOLD 12-17 00:28 → IMCU 12-17 02:11 → MED/SURG2 12-18 14:46 → OBSVTOIN 12-18 15:43
PROVIDERS: ADMIT Internal Medicine; ATTEND Internal Medicine
PROC: 02HV33Z Insertion of Infusion Device into Superior Vena Cava, Percutaneous Approach (ICD-10-PCS; 2019-12-20)
PROC: B5181ZA Fluoroscopy of Superior Vena Cava using Low Osmolar Contrast, Guidance (ICD-10-PCS; 2019-12-20)
PROC: 0JH60WZ Insertion of Totally Implantable Vascular Access Device into Chest Subcutaneous Tissue and Fascia, Open Approach (ICD-10-PCS; principal; 2019-12-20 09:48)
DX: A41.9 Sepsis, unspecified organism (principal); N17.9 Acute kidney failure, unspecified; N39.0 Urinary tract infection, site not specified; C78.6 Secondary malignant neoplasm of retroperitoneum and peritoneum; C78.89 Secondary malignant neoplasm of other digestive organs; E78.5 Hyperlipidemia, unspecified; D64.9 Anemia, unspecified; E11.9 Type 2 diabetes mellitus without complications; K21.9 Gastro-esophageal reflux disease without esophagitis; Z90.49 Acquired absence of other specified parts of digestive tract; Z90.710 Acquired absence of both cervix and uterus; Z11.59 Encounter for screening for other viral diseases; Z82.49 Family history of ischemic heart disease and other diseases of the circulatory system; E66.9 Obesity, unspecified; Z68.32 Body mass index [BMI] 32.0-32.9, adult; C50.919 Malignant neoplasm of unspecified site of unspecified female breast; D69.6 Thrombocytopenia, unspecified; N18.3 Chronic kidney disease, stage 3 (moderate); B96.4 Proteus (mirabilis) (morganii) as the cause of diseases classified elsewhere; B96.20 Unspecified Escherichia coli [E. coli] as the cause of diseases classified elsewhere; B95.2 Enterococcus as the cause of diseases classified elsewhere; I12.9 Hypertensive chronic kidney disease with stage 1 through stage 4 chronic kidney disease, or unspecified chronic kidney disease
CPT/HCPCS: 36415; 71045; 71250; 74176; 77001; 80048; 80053; 81001; 82948; 83690; 83735; 83880; 84484; 85025; 87086; 87186; 93005; 99284; C1751; G0378; J0696; J1644; J2001; J2250; J2405; J7030; U0002

== ENCOUNTER 2020-01-25 21:35 | Emergency (ER) | payer MEDICARE ==
[~2020-01-25] VITALS: Ht 152.4 cm; Wt 75.7 kg
[~2020-01-25 21:35] MED LIST changes: +LISINOPRIL-HCT1 EAC2 PO; +METOPROLOL SUCC25 MG PO; +ceftin PO
--- NOTE | 2020-01-25 21:42 | Emergency Department Note ---
History of Present Illnes History of Present Illness History of Present Illness This is a 69 year old female presents to the ED for gen weakness s/p blood transfusion at [facility] . Historian: Patient, Family Member Arrival Mode: Car Power Tool Repair Technician Required: No Radiation: Reports abdomen Severity: moderate Onset quality: gradual Duration (how long): day(s) Timing of current episode: constant Progression: worsening Chronicity: new Context: Reports recent illness Relieving factors: none Exacerbating factors: none Associated symptoms: Reports nausea/vomiting Previous service: tests performed, observation Past Medical/Family History Physician Review I have reviewed the patient's past medical and family history. Any updates have been documented here. Past Medical History Recent Fever: No Clinical Suspicion of Infectio: No New/Unexplained Change in Ment: No Past Medical History: Hypertension, Diabetes, Cancer, Anemia, Hyperlipedemia Other Medical History: colon cancer Past Surgical History: Hysterectomy Other Surgery: hemorrhoidectomy, cholecystectomy, BIOPSY Social History Smoking Cessation: Never Smoker Alcohol Use: None Any Illegal Drug Use: No Other Last Tetanus: OOD Review of Systems Review of Systems Constitutional: Reports no symptoms EENTM: Reports no symptoms Cardiovascular: Reports no symptoms Respiratory: Reports no symptoms Gastrointestinal: Reports abdominal pain, Reports nausea, Reports vomiting Genitourinary: Reports no symptoms Musculoskeletal: Reports no symptoms Integumentary: Reports no symptoms Neurological: Reports no symptoms Psychological: Reports no symptoms Endocrine: Reports no symptoms Hematological/Lymphatic: Reports no symptoms Physical Exam Related Data Allergies: Coded Allergies: No Known Allergies (Unverified , 08/25/18) Triage Vital Signs Vital Signs Date Time Temp Pulse Resp B/P (MAP) Pulse Ox O2 Delivery O2 Flow Rate FiO2 01/25/20 21:45 98.5 61 24 149/74 97 Room Air Vital signs reviewed: Yes Physical Exam CONSTITUTIONAL Constitutional: Present well-developed, Present well-nourished HENT HENT: Present normocephalic, Present atraumatic, Present oropharynx clear/moist, Present nose normal HENT L/R: Present left ext ear normal, Present right ext ear normal EYES Eyes: Reports PERRL, Reports conjunctivae normal NECK Neck: Present ROM normal PULMONARY Pulmonary: Present effort normal, Present breath sounds normal CARDIOVASCULAR Cardiovascular: Present regular rhythm, Present heart sounds normal, Present capillary refill normal, Present normal rate GASTROINTESTINAL Abdominal: Present soft, Present distension, Present tender GENITOURINARY Genitourinary: Present exam deferred SKIN Skin: Present warm, Present dry MUSCULOSKELETAL Musculoskeletal: Present ROM normal NEUROLOGICAL Neurological: Present alert, Present oriented x 3, Present no gross motor or sensory deficits PSYCHOLOGICAL Psychological: Present mood/affect normal, Present judgement normal Results Laboratory Lab results reviewed: Yes Laboratory comments Laboratory Tests Test 01/25/20 21:52 White Blood Count 6.10 x10e3/uL (4.8-10.8) Red Blood Count 3.71 x10e6/uL (3.6-5.1) Hemoglobin 10.8 g/dL (12.0-16.0) Hematocrit 33.4 % (34.2-44.1) Mean Corpuscular Volume 90.0 fL (81-99) Mean Corpuscular Hemoglobin 29.1 pg (28-32) Mean Corpuscular Hemoglobin Concent 32.3 g/dL (31-35) Red Cell Distribution Width 19.8 % (11.7-14.4) Platelet Count 206 x10e3/uL (140-360) Neutrophils (%) (Auto) 63.0 % (38.7-80.0) Lymphocytes (%) (Auto) 28.2 % (18.0-39.1) Monocytes (%) (Auto) 4.9 % (4.4-11.3) Eosinophils (%) (Auto) 2.5 % (0.0-6.0) Basophils (%) (Auto) 0.3 % (0.0-1.0) Neutrophils # (Auto) 3.8 (2.1-6.9) Lymphocytes # (Auto) 1.7 (1.0-3.2) Monocytes # (Auto) 0.3 (0.2-0.8) Eosinophils # (Auto) 0.2 (0.0-0.4) Basophils # (Auto) 0.0 (0.0-0.1) Absolute Immature Granulocyte (auto 0.07 x10e3/uL (0-0.1) Prothrombin Time 12.6 seconds (11.9-14.5) Prothromb Time International Ratio 0.90 Sodium Level 138 mmol/L (136-145) Potassium Level 4.9 mmol/L (3.5-5.1) Chloride Level 106 mmol/L (98-107) Carbon Dioxide Level 23 mmol/L (22-29) Anion Gap 13.9 mmol/L (8-16) Blood Urea Nitrogen 15 mg/dL (7-26) Creatinine 1.23 mg/dL (0.57-1.11) Estimat Glomerular Filtration Rate 43 ML/MIN (60-) BUN/Creatinine Ratio 12 (6-25) Glucose Level 138 mg/dL (74-118) Calcium Level 8.7 mg/dL (8.4-10.2) Total Bilirubin 1.0 mg/dL (0.2-1.2) Aspartate Amino Transf (AST/SGOT) 107 IU/L (5-34) Alanine Aminotransferase (ALT/SGPT) 50 IU/L (0-55) Alkaline Phosphatase 251 IU/L (40-150) Creatine Kinase 26 IU/L (29-168) Creatine Kinase MB 0.60 ng/mL (0-5.0) Troponin I 0.004 ng/mL (0-0.300) Total Protein 6.9 g/dL (6.5-8.1) Albumin 3.6 g/dL (3.5-5.0) Globulin 3.3 g/dL (2.3-3.5) Albumin/Globulin Ratio 1.1 (0.8-2.0) Imaging Imaging results reviewed: Yes Impressions [place] [id number] Patient Name: MINA DIAZ MR #: [id number] : 1950 Age/Sex: 69/F Req #: [id number] Adm Physician: Ordered by: CHAU KRAMER DO Report #: [id number] Location: ER Room/Bed: Procedure: [id number] CT/CT ABDOMEN/PELVIS W Exam Date: 01/25/20 Exam Time: 2250 REPORT STATUS: Signed EXAM: CT Abdomen and Pelvis WITH contrast INDICATION: ^abd tenderness ^[id number] ^[id number] COMPARISON: CT dated 12/16/2019 TECHNIQUE: Abdomen and pelvis were scanned utilizing a multidetector helical scanner from the lung base to the pubic symphysis after administration of IV contrast. Coronal and sagittal reformations were obtained. Dose modulation, iterative reconstruction, and/or weight based adjustment of the mA/kV was utilized to reduce the radiation dose to as low as reasonably achievable. Routine protocol was performed. Scan was performed when during portal venous phase. IV CONTRAST: 100 mL of Isovue-370 ORAL CONTRAST: Gastroview COMPLICATIONS: None RADIATION DOSE: Total DLP: 562.42 mGy*cm Estimated effective dose: (DLP x 0.015 x size factor) mSv CTDIvol has been reviewed. It is below the limits set by the Radiation Protocol Committee (RPC). FINDINGS: LINES and TUBES: None. LOWER THORAX: Unremarkable HEPATOBILIARY: No focal hepatic lesions. No biliary ductal dilation. GALLBLADDER: Not visualized. SPLEEN: No splenomegaly. PANCREAS: 4 mm pancreatic body hypodensity. No ductal dilatation. ADRENALS: Unchanged 1.7 cm left adrenal nodule. No right adrenal nodule. KIDNEYS/URETERS: Kidneys enhance symmetrically. Mild bilateral hydronephrosis. No renal mass. Right renal inferior postop subcentimeter hypodensity is too small to characterize. No stones. GI TRACT: Right hemicolectomy. Unchanged appearance of multiple small bowel loops in right lower quadrant with some mesenteric swirling. No abnormal distention or evidence of bowel obstruction. Rectal wall thickening. PELVIC ORGANS/BLADDER: Hysterectomy. Bladder wall thickening. LYMPH NODES: No lymphadenopathy. A 1.2 cm anterior pelvic lymph nodes, adjacent to the symphysis pubic, not significantly changed. VESSELS: There is mild atherosclerotic disease in the aorta and major arterial branches. PERITONEUM / RETROPERITONEUM: No free air. Increased small to moderate volume ascites. BONES: Diffuse osseous metastatic disease. SOFT TISSUES: Partially seen tiny left breast calcification. Abdominal wall postsurgical changes with hernia mesh repair in place. IMPRESSION: 1. Rectal wall thickening, could be due to infectious/inflammatory proctitis in the appropriate clinical context. Underlying lesion cannot be excluded. 2. Small to moderate volume ascites, increased when compared to prior CT. 3. Again seen diffuse osseous metastatic disease. 4. Unchanged left adrenal nodule. 5. Mild bilateral hydronephrosis without evidence of obstructive lesion. Mild bladder wall thickening, could be due to underdistention or cystitis. 6. Unchanged appearance of multiple small bowel loops in right lower quadrant with some mesenteric swirling, suspicious for internal hernia. No abnormal dilatation to suggest bowel obstruction. 7. Tiny pancreatic body hypodensity, which can be further evaluated with nonurgent pancreatic mass protocol MRI. Signed by: Dr. Sajan Norris MD on 01/25/2020 11:38 PM Dictated By: SAJAN NORRIS MD 37 Transcribed By: MIR on 01/25/202337 COPY TO: CHAU KRAMER DO~ Procedures 12 Lead ECG Interpretation ECG Interpretation : ECG: ECG 1 Power Tool Repair Technician: Interpreted by ED physician Date: Jan 25, 2020 Time: 21:56 Prior ECG tracings: reviewed Rate: normal BPM: 62 QRS axis: normal ST segments normal: Yes T waves normal: Yes Clinical Impression: normal ECG Assessment & Plan Medical Decision Making MDM 69 yof presents with abd pain. CBC, CMP, and CTS of abd/pelvis ordered to evaluate for abdominal abscess, appendicitis, biliary pathology, pancreatitis, perforated viscus, and obstruction Assessment & Plan Final Impression: (1) Abdominal pain Depart Disposition: HOME, SELF-long-term Meds Reported Medications [ceftin] No Conflict Check, 250 MG PO BID for 14 Days 12/21/19 Lisinopril/Hydrochlorothiazide (LISINOPRIL-HCTZ 10-12.5 MG TAB) 1 Each Tablet, PO DAILY 12/17/19 Metoprolol Succinate (METOPROLOL SUCCINATE) 25 Mg Tab.er.24h, 25 MG PO DAILY 12/17/19 [Albuterol Sulfate] No Conflict Check, 90 MCG INH PRN 11/30/19 Magnesium Oxide (MAGNESIUM OXIDE) 400 Mg Tablet, 200 MG PO DAILY, TAB 11/30/19 Bupropion Hcl (BUPROPION XL) 150 Mg Tab.er.24h, 150 MG PO DAILY 11/30/19 Pantoprazole Sodium* (PROTONIX) 40 Mg Tablet.dr, 40 MG PO DAILY, TAB 11/30/19 Ondansetron Hcl* (ZOFRAN*) 4 Mg Tablet, 4 MG PO PRN PRN for NAUSEA 11/30/19 Sucralfate (SUCRALFATE) 1 Gm Tablet, 1 GM PO QID PRN for MILD PAIN (1-3), TAB 11/30/19 Ferrous Sulfate (FERROUS SULFATE) 325 Mg Tablet, 325 MG PO BID WITH MEALS 11/30/19 Rosuvastatin Calcium (CRESTOR) 10 Mg Tab, 20 MG PO DAILY THERAPEUTICALLY SUBSTITUTED WITH SIMVASTATIN 40MG 11/30/19 Metformin Hcl (METFORMIN HCL) 500 Mg Tablet, 1000 MG PO DAILY, #60 TAB 11/30/19 CHAU KRAMER DO Jan 25, 2020 21:42
[2020-01-25 22:03] LABS: BASOPHILS % 0.3 % (0.0-1.0); EOSINOPHILS # (AUTO) 0.2 (0.0-0.4); EOSINOPHILS % 2.5 % (0.0-6.0); HEMATOCRIT 33.4 % (34.2-44.1); HEMOGLOBIN 10.8 g/dL (12.0-16.0); LYMPHOCYTES # (AUTO) 1.7 (1.0-3.2); LYMPHOCYTES % 28.2 % (18.0-39.1); MEAN CORPUSCULAR HEMOGLOBIN 29.1 pg (28-32); MEAN CORPUSCULAR HGB CONC 32.3 g/dL (31-35); MONOCYTES # (AUTO) 0.3 (0.2-0.8); MONOCYTES % 4.9 % (4.4-11.3); NEUTROPHILS # (AUTO) 3.8 (2.1-6.9); PLATELET COUNT 206 x10e3/uL (140-360); RED BLOOD COUNT 3.71 x10e6/uL (3.6-5.1); RED CELL DISTRIBUTION WIDTH 19.8 % (11.7-14.4)
[2020-01-25] MEDS ORDERED: DIATRIZOATE MEGL/DIATRIZOA SOD 30 ML BTL PO ONE (22:04)
[2020-01-25 22:14] LABS: INR 0.9; PROTHROMBIN TIME 12.6 seconds (11.9-14.5)
[2020-01-25 22:20] LABS: ALBUMIN 3.6 g/dL (3.5-5.0); ALBUMIN/GLOBULIN RATIO 1.1 (0.8-2.0); ANION GAP 13.9 mmol/L (8-16); CALCIUM 8.7 mg/dL (8.4-10.2); CREATININE, SERUM 1.23 mg/dL (0.57-1.11); POTASSIUM 4.9 mmol/L (3.5-5.1)
[2020-01-25 22:27] LABS: CREATINE KINASE MB 0.6 ng/mL (0-5.0)
[2020-01-25] MEDS ORDERED: SODIUM CHLORIDE 0.9% 50ML 50 ML ONE (22:52)
[2020-01-25] MEDS ORDERED: IOPAMIDOL 370 MG/ML 200 ML INFUS..BTL INJ ONE (22:53)
--- NOTE | 2020-01-25 23:41 | Diagnostic Imaging Report ---
EXAM: CT Abdomen and Pelvis WITH contrast INDICATION: ^abd tenderness ^[id number] ^2250 COMPARISON: CT dated 12/16/2019 TECHNIQUE: Abdomen and pelvis were scanned utilizing a multidetector helical scanner from the lung base to the pubic symphysis after administration of IV contrast. Coronal and sagittal reformations were obtained. Dose modulation, iterative reconstruction, and/or weight based adjustment of the mA/kV was utilized to reduce the radiation dose to as low as reasonably achievable. Routine protocol was performed. Scan was performed when during portal venous phase. IV CONTRAST: 100 mL of Isovue-370 ORAL CONTRAST: Gastroview COMPLICATIONS: None RADIATION DOSE: Total DLP: 562.42 mGy*cm Estimated effective dose: (DLP x 0.015 x size factor) mSv CTDIvol has been reviewed. It is below the limits set by the Radiation Protocol Committee (RPC). FINDINGS: LINES and TUBES: None. LOWER THORAX: Unremarkable HEPATOBILIARY: No focal hepatic lesions. No biliary ductal dilation. GALLBLADDER: Not visualized. SPLEEN: No splenomegaly. PANCREAS: 4 mm pancreatic body hypodensity. No ductal dilatation. ADRENALS: Unchanged 1.7 cm left adrenal nodule. No right adrenal nodule. KIDNEYS/URETERS: Kidneys enhance symmetrically. Mild bilateral hydronephrosis. No renal mass. Right renal inferior postop subcentimeter hypodensity is too small to characterize. No stones. GI TRACT: Right hemicolectomy. Unchanged appearance of multiple small bowel loops in right lower quadrant with some mesenteric swirling. No abnormal distention or evidence of bowel obstruction. Rectal wall thickening. PELVIC ORGANS/BLADDER: Hysterectomy. Bladder wall thickening. LYMPH NODES: No lymphadenopathy. A 1.2 cm anterior pelvic lymph nodes, adjacent to the symphysis pubic, not significantly changed. VESSELS: There is mild atherosclerotic disease in the aorta and major arterial branches. PERITONEUM / RETROPERITONEUM: No free air. Increased small to moderate volume ascites. BONES: Diffuse osseous metastatic disease. SOFT TISSUES: Partially seen tiny left breast calcification. Abdominal wall postsurgical changes with hernia mesh repair in place. IMPRESSION: 1. Rectal wall thickening, could be due to infectious/inflammatory proctitis in the appropriate clinical context. Underlying lesion cannot be excluded. 2. Small to moderate volume ascites, increased when compared to prior CT. 3. Again seen diffuse osseous metastatic disease. 4. Unchanged left adrenal nodule. 5. Mild bilateral hydronephrosis without evidence of obstructive lesion. Mild bladder wall thickening, could be due to underdistention or cystitis. 6. Unchanged appearance of multiple small bowel loops in right lower quadrant with some mesenteric swirling, suspicious for internal hernia. No abnormal dilatation to suggest bowel obstruction. 7. Tiny pancreatic body hypodensity, which can be further evaluated with nonurgent pancreatic mass protocol MRI. Signed by: Dr. Sajan Norris MD on 01/25/2020 11:38 PM
[2020-01-25] MEDS ORDERED: FAMOTIDINE 20 MG/2 ML VIAL IV STA (23:59)
[2020-01-25] MEDS ORDERED: ONDANSETRON HCL INJ 2MG/ML 2ML 2 MG/ML VIAL IV STA (23:59)
[2020-01-26 01:04] VITALS: BP 128/74
== END 2020-01-26 01:05 | disposition home or self-care (01) ==
LOC: ER 22:29
DX: R10.9 Unspecified abdominal pain (principal); E11.65 Type 2 diabetes mellitus with hyperglycemia; I10 Essential (primary) hypertension; E78.5 Hyperlipidemia, unspecified; Z85.038 Personal history of other malignant neoplasm of large intestine
CPT/HCPCS: 36415; 74177; 80053; 82550; 82553; 84484; 85025; 85610; 86850; 86900; 93005; 99283; J2405; Q9967